=== PATIENT | male | born 1945 | race Caucasian/White ===

== ENCOUNTER → 2019-01-06 | Outpatient (CLI) | payer MEDICARE ==
[2019-01-06 13:10] LABS: African American GFR (CKD) >90 (>60 ml/min/1.73 sqM); Blood Urea Nitrogen 17 mg/dL (9-20)
--- NOTE | 2019-01-06 15:56 | CT ---
EXAMINATION TYPE: CT ChestAbdPelvis w con DATE OF EXAM: 01/06/2019 COMPARISON: None HISTORY: suspected mets, hx of melanoma. CT DLP: 1371.6 mGycm Automated exposure control for dose reduction was used. CONTRAST: CT scan of the chest, abdomen and pelvis is performed with Oral Contrast and with IV Contrast, patien t injected with 100 mL of Isovue 300. FINDINGS: LUNGS: There is a soft tissue nodule with smooth margins in the left upper lobe axial image 13 measur ing approximately 9 mm. Additional focus similar appearance is present on the image 16 left upper lob e. Nodularity present along the fissure on axial image #20 left upper lobe. Left lower lobe nodule al shilpa the fissure measures 1 cm axial image 26. Left lower lobe smooth margin nodule on axial image 47 present along the left hemidiaphragm. Along the costophrenic angle on axial image 54 nodule measures 1 cm. Lingular nodule image 38 measures 11 to 12 mm. 5 mm nodule on axial image 32 left lower lobe. 5 mm nodule left upper lobe axial image 25 medially. On the right, some nodularity is present along the posterior aspect of the major fissure which is sub centimeter in size. 4 mm nodule right upper lobe axial image 23. There is some pleural nodularity rig ht lateral chest x-ray image 21 and 22, 24 and 25, 32, 33. Subpleural nodularity on axial image #33 a nd 34, largest nodule measuring 11 to 12 mm on axial image 32. Subpleural nodule right lower lobe micki ge #39 is noted. On image #41 and 42 there is nodularity along the right hemidiaphragm and adjacent t o the thoracic spine measuring 14 mm 12 mm. MEDIASTINUM: There are no greater than 1 cm hilar or mediastinal lymph nodes. No pericardial effusi on is seen. Is a small hiatal hernia. AORTA: No significant abnormality is seen. OTHER: No additional significant abnormality is seen. LIVER/GB: No significant abnormality is appreciated. PANCREAS: No significant abnormality is seen. SPLEEN: No significant abnormality is seen. ADRENALS: No significant abnormality is seen. KIDNEYS: No significant abnormality is seen. REPRODUCTIVE ORGANS: Prostate gland shows calcification. BOWEL: Duodenal diverticulum present at the head of the pancreas level measuring 2.2 cm. Diverticula r change in the sigmoid colon. FREE AIR: No Free Air visible. ASCITES: None seen. RETROPERITONEAL ADENOPATHY: No retroperitoneal adenopathy is seen. LYMPH NODES: No greater than 1 cm abdominal or pelvic lymph nodes are appreciated. URINARY BLADDER: No significant abnormality is seen. PELVIC ADENOPATHY: None visualized. OSSEOUS STRUCTURES: Degenerative disc disease present in the visualized spine, there is facet arthro marin especially in the lumbar spine. Calcifications present along the origins of the hamstring muscl es possibly due to chronic tears. IMPRESSION: Multiple pulmonary nodules, pleural nodules suspicious for metastatic disease.
== END | disposition home or self-care (01) ==
LOC: RADCTMAIN 12:28
PROVIDERS: ATTEND Internal Medicine Hematology & Oncology
DX: R91.8 Other nonspecific abnormal finding of lung field (principal); C43.9 Malignant melanoma of skin, unspecified
CPT/HCPCS: 82565; 84520; 71260; 74177; 36415; Q9967

== ENCOUNTER 2019-04-29 16:44 | Inpatient (IN) | payer MEDICARE ==
--- NOTE | 2019-04-29 17:51 | ED ---
General Adult HPI - General Chief complaint: Recheck/Abnormal Lab/Rx Stated complaint: Mass on stomach Time Seen by Provider: 04/29/19 16:55 Source: patient, RN notes reviewed, old records reviewed Mode of arrival: ambulatory Limitations: no limitations - History of Present Illness Initial comments: This is a 74-year-old male who presents emergency Department stating that he had melanoma behind his eye which was removed a little while ago. Patient had gone to see his doctor an ultrasound was ordered they noticed a mass in the stomach and Dr. Ball called and wanted the patient to be further evaluated the emergency department and probably have admission follow-up with Dr. Melgar. Patient states he is not any difficulty breathing or chest pain currently but he states with exertion he does have difficulty breathing. Patient denies any abdominal pain currently patient is a nausea vomiting diarrhea. - Related Data Home Medications Medication Instructions Recorded Confirmed Aspirin [Adult Low Dose Aspirin EC] 81 mg PO DAILY 08/28/15 08/28/15 Multivitamins, Thera [Multivitamin] 1 tab PO DAILY 08/28/15 08/28/15 Allergies Allergy/AdvReac Type Severity Reaction Status Date / Time No Known Allergies Allergy Verified 04/29/19 16:51 Review of Systems ROS Statement: Those systems with pertinent positive or pertinent negative responses have been documented in the HPI. ROS Other: All systems not noted in ROS Statement are negative. Past Medical History Past Medical History: Osteoarthritis (OA) History of Any Multi-Drug Resistant Organisms: None Reported Past Surgical History: Joint Replacement, Orthopedic Surgery Additional Past Surgical History / Comment(s): TOTAL LEFT KNEE, LEFT ROTATOR CUFF, MAYR JO CARPAL TUNNER X2 EACH. Past Anesthesia/Blood Transfusion Reactions: No Reported Reaction Past Psychological History: No Psychological Hx Reported Smoking Status: Former smoker Past Alcohol Use History: Daily Past Drug Use History: None Reported - Past Family History Mother Family Medical History: No Reported History General Exam - General Exam Comments Initial Comments: GENERAL: Patient is well-developed and well-nourished. Patient is nontoxic and well- hydrated and is in no acute distress. ENT: Neck is soft and supple. No significant lymphadenopathy is noted. Oropharynx is clear. Moist mucous membranes. Neck has full range of motion without eliciting any pain. EYES: The sclera were anicteric and conjunctiva were pink and moist. Extra, motion of the right eye is normal.. Eyelids were unremarkable. PULMONARY: Unlabored respirations. Good breath sounds bilaterally. No audible rales rhonchi or wheezing was noted. CARDIOVASCULAR: There is a regular rate and rhythm without any murmurs gallops or rubs. Femoral pulses are equal bilaterally ABDOMEN: Soft and nontender with normal bowel sounds. SKIN: Skin is clear with no lesions or rashes and otherwise unremarkable. NEUROLOGIC: Patient is alert and oriented x3. Cranial nerves II through XII are grossly intact. Motor and sensory are also intact. Normal speech, volume and content. Symmetrical smile. MUSCULOSKELETAL: Normal extremities with adequate strength and full range of motion. No lower extremity swelling or edema. No calf tenderness. LYMPHATICS: No significant lymphadenopathy is noted PSYCHIATRIC: Normal psychiatric evaluation. Limitations: no limitations Course Vital Signs 04/29/19 16:51 Temperature 97.6 F Pulse Rate 88 Respiratory 18 Rate Blood Pressure 149/93 O2 Sat by Pulse 92 L Oximetry Medical Decision Making - Medical Decision Making CT of the chest abdomen pelvis shows probable metastatic disease. Patient also is a large pleural effusion on the right. Spoke with Dr. Ball he wanted the patient admitted the patient consult Dr. Melgar - Lab Data Result diagrams: 04/29/19 17:31 04/29/19 17:31 Lab Results 04/29/19 04/29/19 04/29/19 Range/Units 17:31 17:31 17:31 WBC 5.5 (3.8-10.6) k/uL RBC 4.65 (4.30-5.90) m/uL Hgb 14.3 (13.0-17.5) gm/dL Hct 42.4 (39.0-53.0) % MCV 91.1 (80.0-100.0) fL MCH 30.8 (25.0-35.0) pg MCHC 33.8 (31.0-37.0) g/dL RDW 13.2 (11.5-15.5) % Plt Count 272 (150-450) k/uL Neutrophils % 66 % Lymphocytes % 21 % Monocytes % 7 % Eosinophils % 3 % Basophils % 0 % Neutrophils # 3.7 (1.3-7.7) k/uL Lymphocytes # 1.2 (1.0-4.8) k/uL Monocytes # 0.4 (0-1.0) k/uL Eosinophils # 0.2 (0-0.7) k/uL Basophils # 0.0 (0-0.2) k/uL PT 10.3 (9.0-12.0) sec INR 1.0 (<1.2) APTT 24.4 (22.0-30.0) sec D-Dimer (<0.60) mg/L FEU Sodium 137 (137-145) mmol/L Potassium 4.1 (3.5-5.1) mmol/L Chloride 106 (98-107) mmol/L Carbon Dioxide 22 (22-30) mmol/L Anion Gap 9 mmol/L BUN 21 H (9-20) mg/dL Creatinine 0.58 L (0.66-1.25) mg/dL Est GFR (CKD-EPI)AfAm >90 (>60 ml/min/1.73 sqM) Est GFR (CKD-EPI)NonAf >90 (>60 ml/min/1.73 sqM) Glucose 125 H (74-99) mg/dL Calcium 9.2 (8.4-10.2) mg/dL Magnesium (1.6-2.3) mg/dL Total Bilirubin 0.8 (0.2-1.3) mg/dL AST 35 (17-59) U/L ALT 19 (4-49) U/L Alkaline Phosphatase 112 (38-126) U/L Total Protein 8.1 (6.3-8.2) g/dL Albumin 4.0 (3.5-5.0) g/dL 04/29/19 04/29/19 Range/Units 17:31 17:31 WBC (3.8-10.6) k/uL RBC (4.30-5.90) m/uL Hgb (13.0-17.5) gm/dL Hct (39.0-53.0) % MCV (80.0-100.0) fL MCH (25.0-35.0) pg MCHC (31.0-37.0) g/dL RDW (11.5-15.5) % Plt Count (150-450) k/uL Neutrophils % % Lymphocytes % % Monocytes % % Eosinophils % % Basophils % % Neutrophils # (1.3-7.7) k/uL Lymphocytes # (1.0-4.8) k/uL Monocytes # (0-1.0) k/uL Eosinophils # (0-0.7) k/uL Basophils # (0-0.2) k/uL PT (9.0-12.0) sec INR (<1.2) APTT (22.0-30.0) sec D-Dimer 2.11 H (<0.60) mg/L FEU Sodium (137-145) mmol/L Potassium (3.5-5.1) mmol/L Chloride (98-107) mmol/L Carbon Dioxide (22-30) mmol/L Anion Gap mmol/L BUN (9-20) mg/dL Creatinine (0.66-1.25) mg/dL Est GFR (CKD-EPI)AfAm (>60 ml/min/1.73 sqM) Est GFR (CKD-EPI)NonAf (>60 ml/min/1.73 sqM) Glucose (74-99) mg/dL Calcium (8.4-10.2) mg/dL Magnesium 2.1 (1.6-2.3) mg/dL Total Bilirubin (0.2-1.3) mg/dL AST (17-59) U/L ALT (4-49) U/L Alkaline Phosphatase (38-126) U/L Total Protein (6.3-8.2) g/dL Albumin (3.5-5.0) g/dL Disposition Clinical Impression: Metastatic melanoma Disposition: ADMITTED IP TO THIS HOSP Referrals: Soy Ball MD [Primary Care Provider] - 1-2 days Time of Disposition: 19:39
[2019-04-29 17:55] LABS: Basophils % (A) 0 %; Eosinophils # (A) 0.2 k/uL (0-0.7); Eosinophils % (A) 3 %; HCT 42.4 % (39.0-53.0); HGB 14.3 gm/dL (13.0-17.5); Lymphocytes # (A) 1.2 k/uL (1.0-4.8); Lymphocytes % (A) 21 %; MCH 30.8 pg (25.0-35.0); MCHC 33.8 g/dL (31.0-37.0); MCV 91.1 fL (80.0-100.0); Mean Platelet Volume 7.3; Monocytes # (A) 0.4 k/uL (0-1.0); Monocytes % (A) 7 %; Neutrophils # (A) 3.7 k/uL (1.3-7.7); Neutrophils % (A) 66 %; Platelet Count 272 k/uL (150-450); RBC 4.65 m/uL (4.30-5.90); RDW 13.2 % (11.5-15.5); WBC 5.5 k/uL (3.8-10.6)
[2019-04-29 18:01] LABS: ALT 19 U/L (4-49); AST 35 U/L (17-59); African American GFR (CKD) >90 (>60 ml/min/1.73 sqM); Alkaline Phosphatase 112 U/L (38-126); Anion Gap 9 mmol/L; Blood Urea Nitrogen 21 mg/dL (9-20); Calcium 9.2 mg/dL (8.4-10.2); Carbon Dioxide 22 mmol/L (22-30); Chloride 106 mmol/L (98-107); Glucose 125 mg/dL (74-99); Non-African American GFR(CKD) >90 (>60 ml/min/1.73 sqM); Potassium 4.1 mmol/L (3.5-5.1); Sodium 137 mmol/L (137-145); Total Bilirubin 0.8 mg/dL (0.2-1.3); Total Protein 8.1 g/dL (6.3-8.2)
[2019-04-29 18:03] LABS: Partial Thromboplastin Time 24.4 sec (22.0-30.0); Prothrombin Time 10.3 sec (9.0-12.0)
[2019-04-29] MEDS ORDERED: SODIUM CHLORIDE 0.9% 1,000 ML IV ONE (19:44)
--- NOTE | 2019-04-29 20:39 | CT ---
EXAMINATION TYPE: CT chest angio for PE DATE OF EXAM: 04/29/2019 COMPARISON: 01/06/2019 HISTORY: 74-year-old male Shortness of breath. TECHNIQUE: Contiguous axial scanning of the chest performed with IV Contrast, patient injected with 1 00ml mL of Isovue 370. Coronal/sagittal MIP reconstructions performed. CT DLP: 497.7 mGycm Automated exposure control for dose reduction was used. FINDINGS: Heart normal size with trace anterior pericardial effusion. No flattening of the interventricular sep britton or reflux of contrast into the hepatic veins. Aorta normal caliber with conventional arch was a branching anatomy. Satisfactory opacification of the pulmonary artery system without evidence for pulmonary embolus. There has been marked interval progression in disease with new extensive pleural nodularity right mid and lower lung with multiple pleural-based masses nearly forming a nodular rind. There is extensive conglomerate mass involving the right middle lobe with extensive new and enlarging bilateral pulmonary nodules, for example, inferior lingula measuring 2.6 cm versus 1.2 cm, previousl y, central left lower lobe at 2.3 cm, new, 3.0 cm peripheral left base residual 0.8 cm, previously. N umerous additional nodules are present. Mild emphysema. Mild septal lines. Moderate to large right pleural effusion is new. The medial mediastinal lymph nodes measuring up to 1.6 cm prevascular space and 1.7 cm AP window. On the right, there is right infrahilar encasement. Partial collapse of the right lower lobe. Most of the left lower lobe is collapsed or opacified with disease involvement. Visualized upper abdomen shows mild thickening of the left adrenal gland, similar to prior. Bones: [facility] within the mid and lower thoracic spine. Degenerative changes of both shoulders. IMPRESSION: 1. NO EVIDENCE FOR PULMONARY EMBOLUS. 2. EXTENSIVE INTERVAL METASTATIC DISEASE PROGRESSION WITH A MALIGNANT MODERATE TO LARGE RIGHT PLEURAL EFFUSION, DEVELOPMENT OF A NEOPLASTIC PLEURAL RIND RIGHT MID AND LOWER LUNG, NUMEROUS NEW AND ENLARG ING PULMONARY NODULES, EXTENSIVE NEOPLASTIC INVOLVEMENT THROUGHOUT THE RIGHT MIDDLE LOBE, AND NEW AP WINDOW AND PREVASCULAR SPACE LYMPHADENOPATHY. 3. THE RIGHT MIDDLE LOBE IS EITHER ENTIRELY INVOLVED WITH TUMOR OR OPACIFIED/ATELECTATIC. JUST OVER H DETENTION OF THE RIGHT LOWER LOBE IS COLLAPSED.
--- NOTE | 2019-04-29 22:26 | CT ---
EXAMINATION TYPE: CT abdomen pelvis w con DATE OF EXAM: 04/29/2019 HISTORY: Generalized abdominal pain. TECHNIQUE: Helical acquisition of images was performed from the lung bases through the pelvis. CT DL P: 1303.6 mGycm. Automated exposure control for dose reduction was used. CONTRAST: Performed without Oral Contrast and with IV Contrast, patient injected with 100ml mL of Iso julián 370. COMPARISON: 01/06/2019 FINDINGS: LUNG BASES: Please refer to CT chest CTA report from earlier today. Interval increase in the size and number of the lower lobe bilateral pulmonary nodules and pleural-ba sed disease. An example of the pulmonary nodules is the dominant left lower lobe lesion now measuring 3.1 x 2.2 cm, previously it measured 1.8 x 1.4 cm in axial cross section. There is a large volume ri ght pleural effusion with innumerable soft tissue density pleural metastatic neoplastic deposits. Bot h the fluid and the nodules are new since the prior study. The nodules predominantly measured 2-3 cm mean diameter. LIVER/GB: No significant abnormality is appreciated. PANCREAS: No significant abnormality is seen. SPLEEN: No significant abnormality is seen. ADRENALS: No significant abnormality is seen. KIDNEYS: No significant abnormality is seen. RETROPERITONEAL ADENOPATHY: None visualized REPRODUCTIVE ORGANS: No significant abnormality is seen URINARY BLADDER: No significant abnormality is seen. PELVIC ADENOPATHY: None visualized. OSSEOUS STRUCTURES: No significant abnormality is seen. BOWEL: No significant abnormality is seen. OTHER: No acute vascular findings. IMPRESSION: NO ABDOMINOPELVIC ACUTE PROCESS OR NEOPLASTIC DISEASE.
--- NOTE | 2019-04-30 09:29 | US ---
EXAMINATION TYPE: US chest DATE OF EXAM: 04/30/2019 COMPARISON: NONE CLINICAL HISTORY: Markings for thoracentesis by pulmonary staff. Abn CT showed right sided pleural ef fusion TECHNIQUE: Targeted ultrasound of the posterior lower right EXAM MEASUREMENTS: Right Pleural Effusion pocket size: 18.8cm Right skin surface to fluid distance: 5.9cm Right side marked for possible thoracentesis outside the dept. Pulmonologists are able to review the images in the patient?s EMR. IMPRESSIONS: Right pleural effusion
[2019-04-30] MEDS ORDERED: ACETAMINOPHEN TAB 325 MG TAB PO PRN (10:16)
--- NOTE | 2019-04-30 12:33 | P.CNPUL ---
History of Present Illness Consult date: 04/30/19 Requesting physician: Soy Ball Reason for consult: dyspnea, abnormal CXR/CT Chief complaint: Shortness of breath for approximately one month History of present illness: This is a very pleasant 74 year old gentleman who follows with Dr. Ball as his primary care provider. He has a history of osteoarthritis with previous orthopedic surgeries, alcohol use with 3 beers per day, remote history of chronic tobacco dependence of approximate 40 years however quit in 1992. The patient does have a history of melanoma of the left eye requiring enucleation and placement of prosthetic. This was in August 2018 and no other treatment was indicated. He had been following with Dr. Melgar for surveillance. He had a computed tomography scan of the chest abdomen and pelvis in December 2018 which did reveal multiple bilateral lung nodules suspicious for metastasis. He had not been seen by a editorial assistant in the past. No oxygen. No inhalers in the outpatient setting. Approximately a month ago he developed shortness of breath mainly on exertion. He was undergoing outpatient workup by his PCP and yesterday's computed tomography scan of the abdomen revealed no abdominal pelvic acute process or neoplastic disease however CT scan of the chest revealed no evidence of pulmonary embolus however there was extensive interval metastatic disease progression with a malignant moderate to large right pleural effusion, development of a neoplastic pleural rind right mid and lower lung, numerous new and enlarging pulmonary nodules, extensive neoplastic involvement involving the right middle lobe, and new AP window and prevascular space lymphadenopathy. The right middle lobe is either entirely involved with tumor or opacified atelectasis. Just over half the right lower lobe is collapsed. Based on these findings the patient was called at home and told to report to the emergency room. He is seen today in consultation on the regular medical floor. He is maintaining good O2 saturations in the low 90s on room air. He's been afebrile. Hemodynamically stable. He denies any productive cough. No hemoptysis. White count 5.5. Hemoglobin 14.3. Creatinine 0.58. Ultrasound of the chest reveals an 18.8 cm pocket on the right. Review of Systems REVIEW OF SYSTEMS: CONSTITUTIONAL: Denies any recent significant weight loss or weight gain. EYES: Denies change in vision. EARS, NOSE, MOUTH, THROAT: Denies headaches, denies sore throat. CARDIOVASCULAR: Denies chest pain, palpitations or syncopal episodes. RESPIRATORY: Shortness of breath mainly with exertion. No cough or congestion. No hemoptysis.. GASTROINTESTINAL: Denies change in appetite, denies abdominal pain GENITOURINARY: Denies hematuria, denies infections. MUSKULOSKELETAL: Denies pain, denies swelling. INTEGUMENTARY: Denies rash, denies eczema. NEUROLOGICAL: Denies recent memory loss, no recent seizure activity. PSYCHIATRIC: Denies anxiety, denies depression. HEMATOLOGIC/LYMPHATIC: Denies anemia, denies enlarged lymph nodes. Past Medical History Past Medical History: Osteoarthritis (OA) Additional Past Medical History / Comment(s): Left eye cancer, melanoma, status post enucleation with prosthesis History of Any Multi-Drug Resistant Organisms: None Reported Past Surgical History: Joint Replacement, Orthopedic Surgery Additional Past Surgical History / Comment(s): TOTAL LEFT KNEE, LEFT ROTATOR CUFF, MARY JO CARPAL TUNNEl X2 EACH, removed left eye 08/2018 artifical eye, abdominal hernia repair Past Anesthesia/Blood Transfusion Reactions: No Reported Reaction Past Psychological History: No Psychological Hx Reported Smoking Status: Former smoker Past Alcohol Use History: Daily Additional Past Alcohol Use History / Comment(s): DRINKS 3 BOTTLES OF BEER DAILY. QUIT SMOKING 25 YEARS AGO. SMOKED LESS THAN 1 PPD FOR 30 YEARS OR MORE. Past Drug Use History: None Reported - Past Family History Mother Family Medical History: No Reported History (Patient denies any significant family history.) Medications and Allergies Home Medications Medication Instructions Recorded Confirmed Type Aspirin [Adult Low Dose Aspirin EC] 81 mg PO DAILY 08/28/15 04/29/19 History Multivitamins, Thera [Multivitamin] 1 tab PO DAILY 08/28/15 04/29/19 History Omeprazole 40 mg PO DAILY 04/29/19 04/29/19 History Ondansetron [Zofran] 4 mg PO TID PRN 04/29/19 04/29/19 History Allergies Allergy/AdvReac Type Severity Reaction Status Date / Time No Known Allergies Allergy Verified 04/29/19 20:29 Physical Exam Vitals: Vital Signs Temp Pulse Pulse Resp BP BP Pulse Ox 04/30/19 04:07 98.2 F 93 18 129/80 92 L 04/30/19 00:00 80 16 04/29/19 23:00 97.9 F 88 16 141/84 93 L 02/06/20 21:04 77 18 04/29/19 20:21 89 16 131/78 92 L 04/29/19 16:51 97.6 F 88 18 149/93 92 L Intake and Output 04/29/19 04/30/19 04/30/19 22:59 06:59 14:59 Intake Total 75 575 Balance 75 575 Intake: Intake, IV Titration 75 575 Amount Sodium Chloride 0.9% 1, 75 575 000 ml @ 75 mls/hr IV . [id number] ONE Rx#:[id number] Other: Voiding Method Toilet Toilet Toilet # Voids 4 Weight 92.986 kg GENERAL EXAM: Alert, active, pleasant 74-year-old gentleman, on room air comfortable in no apparent distress. HEAD: Normocephalic. EYES: History of left eye enucleation with prosthesis NOSE: Clear with pink turbinates. THROAT: No erythema or exudates. NECK: No masses, no JVD. CHEST: No chest wall deformity. LUNGS: Diminished in the right mid and lower lung. CVS: S1 and S2 normal with no audible murmur, regular rhythm. ABDOMEN: No hepatosplenomegaly, normal bowel sounds, no guarding or rigidity. SPINE: No scoliosis or deformity SKIN: No rashes CENTRAL NERVOUS SYSTEM: No focal deficits, tone is normal in all 4 extremities. EXTREMITIES: There is no peripheral edema. No clubbing, no cyanosis. Periphe ral pulses are intact. Results - Laboratory Findings CBC and BMP: 04/29/19 17:31 04/29/19 17:31 PT/INR, D-dimer PT 10.3 sec (9.0-12.0) 04/29/19 17:31 INR 1.0 (<1.2) 04/29/19 17:31 D-Dimer 2.11 mg/L FEU (<0.60) H 04/29/19 17:31 Abnormal lab findings: Abnormal Labs 04/29/19 04/29/19 17:31 17:31 D-Dimer 2.11 H BUN 21 H Creatinine 0.58 L Glucose 125 H - Diagnostic Findings Chest x-ray: image reviewed CT scan - chest: image reviewed Assessment and Plan Assessment: 1 Dyspnea on exertion secondary to extensive interval metastatic disease progression compared to December 2018 with a malignant moderate to large right pleural effusion, development of a neoplastic pleural rind right mid and lower lung, numerous new and enlarging pulmonary nodules, extensive neoplastic involvement throughout the right middle lobe, and new AP window and prevascular space lymphadenopathy. The right middle lobe is either entirely involved with tumor or opacified atelectasis. Just over half the right lower lobe is collapsed. 2 Melanoma of the left eye status post enucleation in August 2018 at the [facility] in [place], no chemotherapy or radiation 3 Multiple bilateral pulmonary nodules noted in December 2018, the largest of which measuring 1 cm 4 Chronic tobacco dependence of nearly 50 years however quit in 1992 5 Osteoarthritis with multiple orthopedic surgery 6 Alcohol use, 3 beers daily Plan: The patient was seen and evaluated by Dr. Green. Previous CAT scan of the chest and recent CAT scan of the chest from yesterday were compared. There is extensive interval metastatic disease progression as noted above with a large right pleural effusion. He will undergo thoracentesis initially with fluid to be sent to pathology. May require bronchoscopy to evaluate the tumor involvement of the right mid and lower lobes. The patient is currently stable and on room air. We will continue to follow and make further recommendations based on his clinical status. I, the cosigning physician, performed a history & physical examination of the patient. Lungs sounds diminished in the right mid and lower lobes. Maintaining good O2 saturations in the 90s on room air. I discussed the assessment and plan of care with my nurse practitioner, Becky Hwang. I attest to the above consultation as dictated by her. Time with Patient: Greater than 30
--- NOTE | 2019-04-30 14:54 | P.HPIM ---
History of Present Illness H&P Date: 04/30/19 Chief Complaint: Abnormal finding on ultrasound This is a 74-year-old male patient of Dr. 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 Patient had ultrasound done that revealed a mass in the abdomen and patient was instructed to come into the hospital for further evaluation. Dr. Melgar is his oncologist he last saw him 2-3 weeks ago. Patient does complain of some shortness of breath with activity. He complains of headache. In December 2018, patient had outpatient CAT scan ordered by Dr. Melgar that revealed multiple pulmonary nodules, pleural nodules suspicious for metastatic disease. Patient came into the [facility] emergency center for evaluation. CBC unremarkable, electrolytes and liver function test normal, BUN 21 creatinine 0.58. Patient was afebrile, hemodynamically stable, pulse ox 92% on room air. CTA of the chest was negative for pulmonary embolism. There was extensive interval metastatic disease progression with malignant moderate to large right pleural effusion, development of neoplastic pleural right mid and lower lung, numerous new and enlarging pulmonary nodules, extensive neoplastic involvement throughout the right middle lobe and new AP window and prevascular space lymphadenopathy. Right middle lobe is either entirely involved with tumor or opacified. CT of the abdomen and pelvis with contrast revealed no abdominalopelvic neoplastic disease. Ultrasound of the chest was marked for right-sided 18.8 cm pleural effusion. Patient admitted to the [facility] floor and consult requested with Dr. Green and oncology. Review of Systems Constitutional: Reports fatigue, Denies chills, Denies fever, Denies malaise, Denies poor appetite Eyes: denies blurred vision, denies pain Ears, nose, mouth and throat: Denies dysphagia, Denies headache, Denies nasal congestion, Denies nasal discharge, Denies sore throat, Denies vertigo Cardiovascular: Reports decreased exercise tolerance, Reports dyspnea on exertion, Denies chest pain, Denies edema, Denies leg edema, Denies lightheadedness, Denies shortness of breath, Denies syncope Respiratory: Denies cough, Denies cough with sputum, Denies dyspnea, Denies excessive sputum, Denies hemoptysis, Denies home oxygen, Denies respiratory infections, Denies wheezing Gastrointestinal: Denies abdominal pain, Denies diarrhea, Denies nausea, Denies vomiting Genitourinary: Denies dysuria, Denies urinary retention Musculoskeletal: Reports muscle weakness, Denies myalgias Integumentary: Denies pruritus, Denies rash, Denies wounds Neurological: Denies change in mentation, Denies change in speech, Denies numbness, Denies weakness Psychiatric: Denies anxiety, Denies depression Endocrine: Denies fatigue, Denies weight change Past Medical History Past Medical History: Osteoarthritis (OA) Additional Past Medical History / Comment(s): Melanoma left eyes status post prosthesis at [facility] History of Any Multi-Drug Resistant Organisms: None Reported Past Surgical History: Joint Replacement, Orthopedic Surgery Additional Past Surgical History / Comment(s): TOTAL LEFT KNEE, LEFT ROTATOR CUFF, MARY JO CARPAL TUNNEl X2 EACH, prosthesis left eye 08/2018, abdominal hernia repair Past Anesthesia/Blood Transfusion Reactions: No Reported Reaction Past Psychological History: No Psychological Hx Reported Smoking Status: Former smoker Past Alcohol Use History: Daily Additional Past Alcohol Use History / Comment(s): DRINKS 3 BOTTLES OF BEER DAILY. QUIT SMOKING 25 YEARS AGO. SMOKED LESS THAN 1 PPD FOR 30 YEARS OR MORE. Past Drug Use History: None Reported - Past Family History Mother Family Medical History: No Reported History Additional Family Medical History / Comment(s): Mother at age 73 with history of diabetes. Father Additional Family Medical History / Comment(s): Father at age 65 from a myocardial infarction. Brother(s) Additional Family Medical History / Comment(s): Patient has 4 brothers when his past from a myocardial infarction at age 57, one has from kidney disease, one from coronary artery disease. One brother is alive with history of diabetes. Sister(s) Additional Family Medical History / Comment(s): Patient does not have any sisters. Son(s) Additional Family Medical History / Comment(s): Patient has 2 sons and one has from complications following bariatric surgery with PE, one son is alive with history of high cholesterol. Patient is one daughter with diabetes. Medications and Allergies Home Medications Medication Instructions Recorded Confirmed Type Aspirin [Adult Low Dose Aspirin EC] 81 mg PO DAILY 08/28/15 04/29/19 History Multivitamins, Thera [Multivitamin] 1 tab PO DAILY 08/28/15 04/29/19 History Omeprazole 40 mg PO DAILY 04/29/19 04/29/19 History Ondansetron [Zofran] 4 mg PO TID PRN 04/29/19 04/29/19 History Allergies Allergy/AdvReac Type Severity Reaction Status Date / Time No Known Allergies Allergy Verified 04/29/19 20:29 Physical Exam Vitals: Vital Signs Temp Pulse Pulse Resp BP BP Pulse Ox 04/30/19 04:07 98.2 F 93 18 129/80 92 L 04/30/19 00:00 80 16 04/29/19 23:00 97.9 F 88 16 141/84 93 L 04/29/19 21:04 77 18 04/29/19 20:21 89 16 131/78 92 L 04/29/19 16:51 97.6 F 88 18 149/93 92 L Intake and Output 04/29/19 04/30/19 04/30/19 22:59 06:59 14:59 Intake Total 75 575 Balance 75 575 Intake: Intake, IV Titration 75 575 Amount Sodium Chloride 0.9% 1, 75 575 000 ml @ 75 mls/hr IV . [id number] ONE Rx#:[id number] Other: Voiding Method Toilet Toilet # Voids 4 Weight 92.986 kg Gen: This is a 74-year-old male. Patient sitting on the edge of the bed and appears to be comfortable. No respiratory distress is noted. HEENT: Head is atraumatic, normocephalic. Pupil round. Prosthesis left eye. Sclerae is anicteric. NECK: Supple. No JVD. No lymphadenopathy. No thyromegaly. LUNGS: Ms. Almanza on the right lower half. No wheezes or rhonchi. No intercostal retractions. HEART: Regular rate and rhythm. No murmur. ABDOMEN: Soft. Bowel sounds are present. No masses. No tenderness. EXTREMITIES: No pedal edema. No calf tenderness. Dorsalis pedis palpable bila terally. NEUROLOGICAL: Patient is awake, alert and oriented x3. Cranial nerves 2 through 12 are grossly intact. Results CBC & Chem 7: 04/29/19 17:31 04/29/19 17:31 Labs: Abnormal Lab Results - Last 24 Hours (Table) 04/29/19 04/29/19 Range/Units 17:31 17:31 D-Dimer 2.11 H (<0.60) mg/L FEU BUN 21 H (9-20) mg/dL Creatinine 0.58 L (0.66-1.25) mg/dL Glucose 125 H (74-99) mg/dL Thrombosis Risk Factor Assmnt - DVT/VTE Prophylaxis DVT/VTE Prophylaxis: Pharmacologic Prophylaxis ordered - Choose All That Apply Any of the Below Risk Factors Present?: Yes Other Risk Factors: Yes Each Risk Factor Represents 2 Points: Age 61-74 years Other congenital or acquired thrombophilia - If yes, enter type in comment: No Thrombosis Risk Factor Assessment Total Risk Factor Score: 2 Thrombosis Risk Factor Assessment Level: Low Risk Assessment and Plan Plan: 1. Dyspnea on exertion secondary to a large right pleural effusion, with e xtensive interval metastatic disease progression, patient admitted to the MedSurg floor, consult with pulmonary medicine, patient is status post ultrasound for thoracentesis. Consult with oncology. 2. 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 3. Osteoarthritis, generalized, stable. 4. Remote history of tobacco use and quit in 1992. 5. Daily alcohol use. 6. GERD and GI prophylaxis. Protonix. 7. DVT prophylaxis. Heparin subcu. Patient will be admitted to the hospital for a minimum of 2 night stay. Discharge plan: Most likely return home. Impression and plan of care have been directed as dictated by the signing physician. Renae Weber nurse practitioner acting as scribe for signing physician.
--- NOTE | 2019-04-30 17:55 | P.CONS ---
History of Present Illness - Reason for Consult Consult date: 04/30/19 History of melanoma, likely metastatic progression - History of Present Illness The pt is a 74 yr old WM, followed by Dr Melgar in the office, 1st seen in consult in 01/09. 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 He presented with gradual decreased vision field X 4-6 months before melanoma was identified clinically. He is doing well post enucleation, remains fully active. He stated being healthy otherwise. He smoked 1 PPD X 30 years, quit smoking 25 years ago. He consumes 3-4 beers/day. The patient denied family history of Melanoma. He had a staging CT CAP in 01/09 showing b/l lung nodules around 1 cm or less, with subpleural nodularity. These were not felt to be definitive, especially as the pt was asymptomatic, and f/u CT was set up for 07/11. Last OV (04/06/19): Dawn Ok, C/O mild fatigue and chronic dyspnea The patient had noticed increasing shortness of breath over the last 2 weeks or so and a slowly progressive manner. He had an evaluation with his PCP with an ultrasound which apparently showed a mass in the stomach. He was therefore sent in to the hospital. He did admits to increased shortness of breath and chest tightness especially on the right side with possible pleuritic characteristics. Therefore he had a CTA done, which was negative for a PE. However it did show marked interval progression with increasing subpleural nodularity in the right middle and lower zones forming essentially a rind, with a new, at least moderate pleural effusion. In addition there was increased size in confluence of nodules in the right middle to lower lung. Additional increase in size and number of nodules was noted. The patient was therefore admitted for further evaluation and recommendations. He denied any fever/chills/nausea/vomiting. He has lost about 8-9 pounds over the last couple of months. Review of Systems Constitutional: Reports weakness, Reports weight loss Eyes: denies blurred vision, denies pain Ears: deny: decreased hearing, ear discharge, earache, tinnitus Ears, nose, mouth and throat: Denies headache, Denies sore throat Cardiovascular: Reports shortness of breath Respiratory: Reports dyspnea Gastrointestinal: Denies abdominal pain, Denies diarrhea, Denies nausea, Denies vomiting Genitourinary: Reports as per HPI Musculoskeletal: Reports muscle weakness Integumentary: Denies pruritus, Denies rash Neurological: Reports weakness, Denies numbness Psychiatric: Denies anxiety, Denies depression Endocrine: Reports fatigue, Reports weight change Hematologic/Lymphatic: Reports as per HPI Past Medical History Past Medical History: Osteoarthritis (OA) Additional Past Medical History / Comment(s): Melanoma left eyes status post prosthesis at [facility] History of Any Multi-Drug Resistant Organisms: None Reported Past Surgical History: Joint Replacement, Orthopedic Surgery Additional Past Surgical History / Comment(s): TOTAL LEFT KNEE, LEFT ROTATOR CUFF, MARY JO CARPAL TUNNEl X2 EACH, prosthesis left eye 08/2018, abdominal hernia repair Past Anesthesia/Blood Transfusion Reactions: No Reported Reaction Past Psychological History: No Psychological Hx Reported Smoking Status: Former smoker Past Alcohol Use History: Daily Additional Past Alcohol Use History / Comment(s): DRINKS 3 BOTTLES OF BEER DAILY. QUIT SMOKING 25 YEARS AGO. SMOKED LESS THAN 1 PPD FOR 30 YEARS OR MORE. Past Drug Use History: None Reported - Past Family History Mother Family Medical History: No Reported History Additional Family Medical History / Comment(s): Mother at age 73 with history of diabetes. Father Additional Family Medical History / Comment(s): Father at age 65 from a myocardial infarction. Brother(s) Additional Family Medical History / Comment(s): Patient has 4 brothers when his past from a myocardial infarction at age 55, one has from kidney disease, one from coronary artery disease. One brother is alive with history of diabetes. Sister(s) Additional Family Medical History / Comment(s): Patient does not have any sisters. Son(s) Additional Family Medical History / Comment(s): Patient has 2 sons and one has from complications following bariatric surgery with PE, one son is alive with history of high cholesterol. Patient is one daughter with diabetes. Medications and Allergies Home Medications Medication Instructions Recorded Confirmed Type Aspirin [Adult Low Dose Aspirin EC] 81 mg PO DAILY 08/28/15 04/29/19 History Multivitamins, Thera [Multivitamin] 1 tab PO DAILY 08/28/15 04/29/19 History Omeprazole 40 mg PO DAILY 04/29/19 04/29/19 History Ondansetron [Zofran] 4 mg PO TID PRN 04/29/19 04/29/19 History Allergies Allergy/AdvReac Type Severity Reaction Status Date / Time No Known Allergies Allergy Verified 04/29/19 20:29 Physical Exam Vitals: Vital Signs Temp Pulse Pulse Resp BP BP Pulse Ox 04/30/19 12:10 98.3 F 77 20 117/75 92 L 04/30/19 04:07 98.2 F 93 18 129/80 92 L 04/30/19 00:00 80 16 04/29/19 23:00 97.9 F 88 16 141/84 93 L 04/29/19 21:04 77 18 04/29/19 20:21 89 16 131/78 92 L 04/29/19 16:51 97.6 F 88 18 149/93 92 L Intake and Output 04/30/19 04/30/19 04/30/19 06:59 14:59 22:59 Intake Total 575 Balance 575 Intake: Intake, IV Titration 575 Amount Sodium Chloride 0.9% 1, 575 000 ml @ 75 mls/hr IV . [id number] ONE Rx#:[id number] Other: Voiding Method Toilet Toilet # Voids 4 2 - Constitutional General appearance: no acute distress - EENT Eyes: EOMI, PERRLA ENT: hearing grossly normal, normal oropharynx - Neck Neck: no lymphadenopathy - Respiratory Respiratory: right: diminished (Lower half to one thirds on the right) - Cardiovascular Rhythm: regular Heart sounds: normal: S1, S2 - Gastrointestinal General gastrointestinal: normal bowel sounds, soft - Integumentary Integumentary: normal - Neurologic Neurologic: CNII-XII intact - Musculoskeletal Musculoskeletal: generalized weakness, strength equal bilaterally - Psychiatric Psychiatric: A&O x's 3, appropriate affect Results CBC & Chem 7: 04/29/19 17:31 04/29/19 17:31 Labs: Abnormal Lab Results - Last 24 Hours (Table) 04/29/19 04/29/19 Range/Units 17:31 17:31 D-Dimer 2.11 H (<0.60) mg/L FEU BUN 21 H (9-20) mg/dL Creatinine 0.58 L (0.66-1.25) mg/dL Glucose 125 H (74-99) mg/dL Comments: Chest ultrasound report reviewed CT scan - abdomen: report reviewed CT scan - chest: report reviewed CT scan - pelvis: report reviewed Assessment and Plan (1) Pleural effusion Current Visit: Yes Status: Acute Code(s): J90 - PLEURAL EFFUSION, NOT ELSEWH ERE CLASSIFIED SNOMED Code(s): 75910146 (2) Lung nodules Current Visit: Yes Status: Acute Code(s): R91.8 - OTHER NONSPECIFIC ABNORMAL FINDING OF LUNG FIELD SNOMED Code(s): 077837321 Plan: #1/2 the patient had known lung nodules and pleural nodularity on CAT scan done in 01/09. Review of the office notes indicates that these were apparently felt to be overall nonspecific based on the size and lack of symptoms. The patient has developed slowly progressive respiratory symptoms, with marked progression on imaging as noted above. This is highly suspicious for metastatic progression of melanoma. However metastatic disease from other sites is also not ruled out though less likely - The patient should therefore proceed with a tissue diagnosis. That was a prior plan in case of progression. At this time an appropriate target would be the pleural fluid. The patient is set up for thoracentesis. Recommend that the fluid be sent for cytology, with appropriate biomarkers if positive. If the patient develops rapid recurrence of fluid, then we will need to consider a Pleurx catheter placement #3. - History as described. Current presentation is most suspicious for metastatic progression off melanoma. We will need to. Tissue diagnosis, as described above. Once this is confirmed, appropriate biomarkers testing will be ordered. Patient will follow-up with Dr. Melgar on discharge to discuss treatment option based on the final pathology. CT of the abdomen and pelvis does not show any obvious disease. Bone scan will be ordered for additional staging, as well as brain MRI, if malignancy is confirmed
--- NOTE | 2019-04-30 17:56 | XR ---
EXAMINATION TYPE: XR chest 1V portable DATE OF EXAM: 04/30/2019 COMPARISON: Chest x-ray 02/21/2010 HISTORY: Thoracentesis TECHNIQUE: Single view FINDINGS: Portable exam after thoracentesis shows significant decrease in the right pleural effusion compared to CT scan yesterday. There are nodular pulmonary densities in both lungs measuring up to 2 cm consistent with metastatic disease. There is pleural irregular thickening right lateral chest wall . There is no pneumothorax. IMPRESSION: Pleural and pulmonary masses. Decreased right pleural effusion compared to yesterday. No pneumothorax.
[2019-04-30 19:28] LABS: Appearance,BF Bloody; Nucleated Cells, Body Fluid 2000 /uL; RBC, Body Fluid 134500 /uL
[2019-04-30] MEDS: HEPARIN SODIUM,PORCINE 5,000 UNIT/ML 1 ML VIAL SQ SCH (19:30)
[2019-04-30 20:07] LABS: Mononuclear WBC,Body Fluid 91 %; Polynuclear WBC,Body Fluid 9 %; Total Cells Counted,Body Fluid 100
--- NOTE | 2019-04-30 23:10 | PCN ---
PROCEDURE NOTE OPERATIVE REPORT: Right-sided thoracentesis. PREOPERATIVE DIAGNOSIS: Pleural effusion. POSTOPERATIVE DIAGNOSIS: Pleural effusion. ANESTHESIA: Used 3 mL of 1% lidocaine. PROCEDURE: The patient was placed in a sitting upright position, the area below the right scapula which was earlier localized by ultrasound was prepared in a sterile fashion and drapes were applied. The area was locally anesthetized with lidocaine. Then, a 26-gauge needle inserted at the same site, advanced into the pleural space. The fluid was localized with a needle. Then a small tiny incision was made, and a standard thoracentesis catheter and needle used, advanced into the pleural space until the fluid was obtained. Then, the catheter was advanced over the needle and the needle was pulled out of the pleural space. Freely flowing fluid was removed from the right pleural space. A total of 2000 mL of serosanguineous fluid was removed from the right pleural space. The fluid was sent for different diagnostic studies, chest x-ray postoperatively showed no evidence of any complications, and there was complete clearance of his right-sided pleural effusion. MMODL / IJN: [id number] /
[2019-05-01] MEDS ORDERED: PANTOPRAZOLE 40 MG TABLET PO SCH (07:30)
[2019-05-01] MEDS ORDERED: MULTIVITAMINS, THERA 1 EACH TAB PO SCH (09:00)
[2019-05-01] MEDS: HEPARIN SODIUM,PORCINE 5,000 UNIT/ML 1 ML VIAL SQ SCH (10:12)
[2019-05-01 11:37] LABS: HCT 43.6 % (39.0-53.0); HGB 14.3 gm/dL (13.0-17.5); MCH 30.3 pg (25.0-35.0); MCHC 32.8 g/dL (31.0-37.0); MCV 92.4 fL (80.0-100.0); Mean Platelet Volume 7.2; Platelet Count 257 k/uL (150-450); RBC 4.72 m/uL (4.30-5.90); RDW 13.2 % (11.5-15.5); WBC 5.5 k/uL (3.8-10.6)
[2019-05-01 11:43] VITALS: BP 121/71; PULSE 81; RESP 17; TEMP 97.8
--- NOTE | 2019-05-01 12:07 | P.PN ---
Subjective Progress Note Date: 05/01/19 This is a 74-year-old male patient of Dr. 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 Patient had ultrasound done that revealed a mass in the abdomen and patient was instructed to come into the hospital for further evaluation. Dr. Melgar is his oncologist he last saw him 2-3 weeks ago. Patient does complain of some shortness of breath with activity. He complains of headache. In December 2018, patient had outpatient CAT scan ordered by Dr. Melgar that revealed multiple pulmonary nodules, pleural nodules suspicious for metastatic disease. Patient came into the [facility] emergency center for evaluation. CBC unremarkable, electrolytes and liver function test normal, BUN 21 creatinine 0.58. Patient was afebrile, hemodynamically stable, pulse ox 92% on room air. CTA of the chest was negative for pulmonary embolism. There was extensive interval metastatic disease progression with malignant moderate to large right pleural effusion, development of neoplastic pleural right mid and lower lung, numerous new and enlarging pulmonary nodules, extensive neoplastic involvement throughout the right middle lobe and new AP window and prevascular space lymphadenopathy. Right middle lobe is either entirely involved with tumor or opacified. CT of the abdomen and pelvis with contrast revealed no abdominalopelvic neoplastic disease. Ultrasound of the chest was marked for right-sided 18.8 cm pleural effusion. Patient admitted to the [facility] floor and consult requested with Dr. Green and oncology. 05/01: Patient underwent thoracentesis yesterday with Dr. Green with removal of 2 L of IV fluids. Pathology is pending. Patient has been hemodynamically stable, no fevers. Patient has been cleared for discharge by Dr. Green. Patient will be discharged home today in stable condition. Discharge diagnoses: 1. Dyspnea on exertion secondary to a large right pleural effusion, with extensive interval metastatic disease progression 2. 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 3. Osteoarthritis, generalized, stable. 4. Remote history of tobacco use and quit in 1992. 5. Daily alcohol use. 6. GERD Discharge plan: home. Impression and plan of care have been directed as dictated by the signing physician. Renae Weber nurse practitioner acting as scribe for signing physician. Objective - Vital Signs Vital signs: Vital Signs Temp 97.8 F 05/01/19 11:42 Pulse 81 05/01/19 11:42 Resp 17 05/01/19 11:42 BP 121/71 05/01/19 11:42 Pulse Ox 94 L 05/01/19 11:42 Intake & Output 04/30/19 05/01/19 05/01/19 18:59 06:59 18:59 Other: Voiding Method Toilet Toilet # Voids 2 2 - Labs CBC & Chem 7: 05/01/19 11:09 04/29/19 17:31 Labs: Abnormal Lab Results - Last 24 Hours (Table) 05/01/19 Range/Units 11:09 Lactate Dehydrogenase 653 H (313-618) U/L Microbiology - Last 24 Hours (Table) 04/30/19 17:20 Gram Stain - Preliminary Pleural Fluid Body Fluid Culture - Preliminary 04/30/19 17:20 Fungal Culture - Preliminary Pleural Fluid
--- NOTE | 2019-05-01 13:42 | P.DS ---
Providers Date of admission: 05/01/19 09:16 Expected date of discharge: 05/01/19 Attending physician: Soy Ball Consults: 04/29/19 19:44 Consult Physician Urgent Consulting Provider: Bernard Melgar Consult Reason/Comments: Metastatic melanoma Do you want consulting provider notified?: Yes 04/29/19 20:48 Consult Physician Urgent Consulting Provider: Nicole Green Consult Reason/Comments: Metastatic lung cancer Do you want consulting provider notified?: Yes Primary care physician: Soy Ball [facility] Course: This is a 74-year-old male patient of Dr. 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 Patient had ultrasound done that revealed a mass in the abdomen and patient was instructed to come into the hospital for further evaluation. Dr. Melgar is his oncologist he last saw him 2-3 weeks ago. Patient does complain of some shortness of breath with activity. He complains of headache. In December 2018, patient had outpatient CAT scan ordered by Dr. Melgar that revealed multiple pulmonary nodules, pleural nodules suspicious for metastatic disease. Patient came into the [facility] emergency center for evaluation. CBC unremarkable, electrolytes and liver function test normal, BUN 21 creatinine 0.58. Patient was afebrile, hemodynamically stable, pulse ox 92% on room air. CTA of the chest was negative for pulmonary embolism. There was extensive interval metastatic disease progression with malignant moderate to large right pleural effusion, development of neoplastic pleural right mid and lower lung, numerous new and enlarging pulmonary nodules, extensive neoplastic involvement throughout the right middle lobe and new AP window and prevascular space lymphadenopathy. Right middle lobe is either entirely involved with tumor or opacified. CT of the abdomen and pelvis with contrast revealed no abdominalopelvic neoplastic disease. Ultrasound of the chest was marked for right-sided 18.8 cm pleural effusion. Patient admitted to the [facility] floor and consult requested with Dr. Green and oncology. 05/01: Patient underwent thoracentesis yesterday with Dr. Green with removal of 2 L of IV fluids. Pathology is pending. Patient has been hemodynamically stable, no fevers. Patient has been cleared for discharge by Dr. Green. Patient will be discharged home today in stable condition. Discharge diagnoses: 1. Dyspnea on exertion secondary to a large right pleural effusion, with extensive interval metastatic disease progression 2. 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 3. Osteoarthritis, generalized, stable. 4. Remote history of tobacco use and quit in 1992. 5. Daily alcohol use. 6. GERD Discharge plan: home. Impression and plan of care have been directed as dictated by the signing physician. Renae Weber nurse practitioner acting as scribe for signing physic mike. Patient Condition at Discharge: Good Plan - Discharge Summary Discharge Rx Participant: No New Discharge Prescriptions: Continue Multivitamins, Thera [Multivitamin (formulary)] 1 tab PO DAILY Aspirin [Adult Low Dose Aspirin EC] 81 mg PO DAILY Ondansetron [Zofran] 4 mg PO TID PRN PRN Reason: Nausea Omeprazole 40 mg PO DAILY Discharge Medication List Aspirin [Adult Low Dose Aspirin EC] 81 mg PO DAILY 08/28/15 [History] Multivitamins, Thera [Multivitamin (formulary)] 1 tab PO DAILY 08/28/15 [History] Omeprazole 40 mg PO DAILY 04/29/19 [History] Ondansetron [Zofran] 4 mg PO TID PRN 04/29/19 [History] Follow up Appointment(s)/Referral(s): Nicole Green MD [STAFF PHYSICIAN] - 1 Week Soy Ball MD [Primary Care Provider] - 1 Week Discharge Disposition: HOME SELF-CARE
--- NOTE | 2019-05-01 14:24 | NM ---
EXAMINATION TYPE: NM bone scan whole body DATE OF EXAM: 05/01/2019 COMPARISON: NONE HISTORY: Metastatic melanoma. Delayed whole-body scanning was performed following the injection of 25.1 mCi Tc 99m MDP. Images acq uired 3 hours post injection. FINDINGS: There is some increased activity about the right ankle. There is increased activity in both wrists. There is some increased activity in the sternoclavicular joints bilaterally. There is a left knee prosthesis present. I do not see convincing evidence of metastatic disease. IMPRESSION: 1. DEGENERATIVE UPTAKE. 2. I DO NOT SEE CONVINCING EVIDENCE OF METASTASES AT THIS TIME.
--- NOTE | 2019-05-01 14:59 | P.PN ---
Subjective Progress Note Date: 05/01/19 Principal diagnosis: Metastatic melanoma with large right-sided pleural effusion This is a very pleasant 74 year old gentleman who follows with Dr. Ball as his primary care provider. He has a history of osteoarthritis with previous orthopedic surgeries, alcohol use with 3 beers per day, remote history of chronic tobacco dependence of approximate 40 years however quit in 1992. The patient does have a history of melanoma of the left eye requiring enucleation and placement of prosthetic. This was in August 2018 and no other treatment was indicated. He had been following with Dr. Melgar for surveillance. He had a computed tomography scan of the chest abdomen and pelvis in December 2018 which did reveal multiple bilateral lung nodules suspicious for metastasis. He had not been seen by a professional healthcare representative in the past. No oxygen. No inhalers in the outpatient setting. Approximately a month ago he developed shortness of breath mainly on exertion. He was undergoing outpatient workup by his PCP and yesterday's computed tomography scan of the abdomen revealed no abdominal pelvic acute process or neoplastic disease however CT scan of the chest revealed no evidence of pulmonary embolus however there was extensive interval metastatic disease progression with a malignant moderate to large right pleural effusion, development of a neoplastic pleural rind right mid and lower lung, numerous new and enlarging pulmonary nodules, extensive neoplastic involvement involving the right middle lobe, and new AP window and prevascular space lymphadenopathy. The right middle lobe is either entirely involved with tumor or opacified atelectasis. Just over half the right lower lobe is collapsed. Based on these findings the patient was called at home and told to report to the emergency room. He is seen today in consultation on the regular medical floor. He is maintaining good O2 saturations in the low 90s on room air. He's been afebrile. Hemodynamically stable. He denies any productive cough. No hemoptysis. White count 5.5. Hemoglobin 14.3. Creatinine 0.58. Ultrasound of the chest reveals an 18.8 cm pocket on the right. Reevaluated today on 05/01/2019, patient is doing well, relatively asymptomatic, felt much better since yesterday after draining about 2 L of serosanguineous fluid from his right pleural space. Patient had a bone scan today, and it did not reveal any evidence of metastatic disease to the bones. Overall the patient is doing well, and I have recommended discharge planning today. Follow-up with me on outpatient basis in one week. Based on the rate of fluid reaccumulation in the right pleural space, we can decide on outpatient basis whether the patient will eventually need a Pleurx catheter placement. Objective - Vital Signs Vital signs: Vital Signs Temp 97.8 F 05/01/19 11:42 Pulse 81 05/01/19 11:42 Resp 17 05/01/19 11:42 BP 121/71 05/01/19 11:42 Pulse Ox 94 L 05/01/19 11:42 Intake & Output 04/30/19 05/01/19 05/01/19 18:59 06:59 18:59 Intake Total 800 Balance 800 Intake: Oral 800 Other: Voiding Method Toilet Toilet Toilet # Voids 2 2 2 - Exam GENERAL EXAM: Alert, active, pleasant 74-year-old gentleman, on room air comfortable in no apparent distress. HEAD: Normocephalic. EYES: History of left eye enucleation with prosthesis NOSE: Clear with pink turbinates. THROAT: No erythema or exudates. NECK: No masses, no JVD. CHEST: No chest wall deformity. LUNGS: Clear breath sounds bilaterally much improved on the right compared to yesterday CVS: S1 and S2 normal with no audible murmur, regular rhythm. ABDOMEN: No hepatosplenomegaly, normal bowel sounds, no guarding or rigidity. SPINE: No scoliosis or deformity SKIN: No rashes CENTRAL NERVOUS SYSTEM: No focal deficits, tone is normal in all 4 extremities. EXTREMITIES: There is no peripheral edema. No clubbing, no cyanosis. Peripheral pulses are intact. - Labs CBC & Chem 7: 05/01/19 11:09 04/29/19 17:31 Labs: Abnormal Lab Results - Last 24 Hours (Table) 05/01/19 Range/Units 11:09 Lactate Dehydrogenase 653 H (313-618) U/L Microbiology - Last 24 Hours (Table) 04/30/19 17:20 Gram Stain - Preliminary Pleural Fluid Body Fluid Culture - Preliminary 04/30/19 17:20 Fungal Culture - Preliminary Pleural Fluid Assessment and Plan Assessment: 1 Dyspnea on exertion secondary to extensive interval metastatic disease progression compared to December 2018 with a malignant moderate to large right pleural effusion, status post right-sided thoracentesis with 2 L removed. 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 Recommendation: Agree with discharge planning home today. Discussed his condition with the admitting physician Dr. Zelaya. Patient is to see me in one week post discharge. Resume home meds. Follow up with oncology. Time with Patient: Less than 30
== END 2019-05-01 16:30 | disposition home or self-care (01) | DRG 181 ==
LOC: EC 16:44 → 5NMEDONC 19:44 → INTOOBSV 19:44 → 5NMEDONC 23:31 → OBSVTOIN 05-01 09:16
PROVIDERS: ADMIT Internal Medicine; ATTEND Internal Medicine
PROC: 0W993ZX Drainage of Right Pleural Cavity, Percutaneous Approach, Diagnostic (ICD-10-PCS; principal; 2019-04-30)
DX: C78.01 Secondary malignant neoplasm of right lung (principal); J91.0 Malignant pleural effusion; J98.11 Atelectasis; Z85.840 Personal history of malignant neoplasm of eye; Z87.891 Personal history of nicotine dependence; Z90.01 Acquired absence of eye; K21.9 Gastro-esophageal reflux disease without esophagitis; M15.9 Polyosteoarthritis, unspecified; R59.0 Localized enlarged lymph nodes; Z79.82 Long term (current) use of aspirin; Z82.49 Family history of ischemic heart disease and other diseases of the circulatory system; Z83.3 Family history of diabetes mellitus; Z97.0 Presence of artificial eye; Z96.652 Presence of left artificial knee joint
CPT/HCPCS: 36415; 71045; 71275; 74177; 76604; 78306; 80053; 83615; 83735; 85025; 85027; 85379; 85610; 85730; 87070; 87102; 87205; 87252; 87496; 87498; 87502; 87529; 87634; 87798; 89050; 96360; 99285

== ENCOUNTER → 2019-05-31 | Outpatient (CLI) | payer MEDICARE ==
[2019-05-31 16:47] LABS: African American GFR (CKD) >90 (>60 ml/min/1.73 sqM); Blood Urea Nitrogen 19 mg/dL (9-20); Non-African American GFR(CKD) >90 (>60 ml/min/1.73 sqM)
--- NOTE | 2019-05-31 17:38 | CT ---
EXAMINATION TYPE: CT angio chest DATE OF EXAM: 05/31/2019 COMPARISON: Most recent CT April 29, [address] January 06, 2019 HISTORY: SOB, history of metastatic melanoma. CT DLP: 426.6 mGycm. Automated Exposure Control for Dose Reduction was Utilized. CONTRAST: CTA scan of the thorax is performed with IV Contrast, patient injected with 100 mL of Isovue 370, pul monary embolism protocol. MIP Images are created on CT scanner and reviewed. FINDINGS: LUNGS: Persistent moderate to borderline large size right pleural fluid collection with pleural-based metastatic deposits as there marginal are multiple areas of hyperdense masses along the periphery re demonstrated. There is associated compressive atelectasis. Redemonstration of multiple bilateral pulm onary metastatic nodules and masses with some interval increase in size thought present. For referenc e left midlung lesion anteriorly measures 3.2 cm long axis current study versus 2.6 cm prior study. MEDIASTINUM: There is satisfactory enhancement of the pulmonary artery and its branches, there is no CT evidence for pulmonary embolism. Some local mass effect or narrowing from central pleural-based m etastatic lesions is felt present. There are no new greater than 1 cm hilar or mediastinal lymph node s. Small to tiny pericardial effusion is slightly larger versus prior. Left-sided mediastinal shift a gain seen. OTHER: Prominent multilevel spurring in the thoracolumbar spine is redemonstrated. S-shaped scoliosis . IMPRESSION: Moderate to large right pleural fluid collection slightly increased from prior. Diffuse p ulmonary and pleural-based metastatic disease progressed from most recent prior. No CT evidence for a cute pulmonary embolism.
== END | disposition home or self-care (01) ==
LOC: RADCTMAIN 16:02
PROVIDERS: ATTEND Internal Medicine Hematology & Oncology
DX: C43.9 Malignant melanoma of skin, unspecified (principal); R06.02 Shortness of breath
CPT/HCPCS: 82565; 84520; 71275; 36415; Q9967

== ENCOUNTER 2019-06-14 08:32 | Day surgery (SDC) | payer MEDICARE ==
[2019-06-14 08:54] VITALS: RESP 20; TEMP 97.7
[2019-06-14 09:24] LABS: Mean Platelet Volume 7.2; Platelet Count 270 k/uL (150-450)
[2019-06-14 09:35] LABS: INR 1.1 (<1.2); Prothrombin Time 11.3 sec (9.0-12.0)
[2019-06-14 11:00] VITALS: PULSE 96
--- NOTE | 2019-06-14 11:20 | XR ---
EXAMINATION TYPE: XR chest 1V portable DATE OF EXAM: 06/14/2019 Comparison: 04/30/2019 and 05/28/2019 Clinical History: 74-year-old male status post right thoracentesis Findings: Heart upper limits of normal in size. Multiple bilateral pulmonary nodules and masses redemonstrated. Pleural based mass lateral right hemithorax. No appreciable pneumothorax. Residual small right pleur al effusion with right basilar opacity. Impression: Residual small right pleural effusion with adjacent atelectasis and/or consolidation. No appreciable pneumothorax. Known pleural and parenchymal metastases.
[2019-06-14 11:28] VITALS: BP 117/70
--- NOTE | 2019-06-14 11:57 | US ---
EXAMINATION TYPE: US thoracentesis DATE OF EXAM: 06/14/2019 COMPARISON: NONE HISTORY: Pleural effusion. FINDINGS: Maximal barrier technique was utilized. The skin overlying a suitable pocket of fluid was localized and the overlying skin prepped and draped. Lidocaine was used for local anesthesia. Ultras ound was used with sterile technique. A 5 Macedonian guide over guide needle was advanced into the pleur al fluid collection using ultrasound guidance and a catheter advanced, needle removed. Approximately 2.1 liter(s) of serous sanguinous fluid was removed. Catheter was withdrawn and hemostasis achieved . There is no immediate complication. The patient discharged in stable condition without complicati on. IMPRESSION: STATUS POST ULTRASOUND GUIDED THORACENTESIS, POST PROCEDURE CHEST X-RAY PENDING. THIS MA OCEDURE WAS PERFORMED BY THE UNDERSIGNED.
== END 2019-06-14 11:25 | disposition home or self-care (01) ==
LOC: RADPROMAIN 08:32
PROVIDERS: ATTEND Internal Medicine Hematology & Oncology
DX: J90 Pleural effusion, not elsewhere classified (principal)
CPT/HCPCS: 32555; 36415; 71045; 85049; 85610

== ENCOUNTER 2019-06-24 16:05 | Inpatient (IN) | payer MEDICARE ==
[2019-06-24 16:56] LABS: Basophils % (A) 0 %; Eosinophils # (A) 0.3 k/uL (0-0.7); Eosinophils % (A) 4 %; HCT 36.9 % (39.0-53.0); HGB 12.2 gm/dL (13.0-17.5); Lymphocytes # (A) 1.1 k/uL (1.0-4.8); Lymphocytes % (A) 17 %; MCH 29.8 pg (25.0-35.0); MCHC 33.1 g/dL (31.0-37.0); MCV 90.2 fL (80.0-100.0); Mean Platelet Volume 7.8; Monocytes # (A) 0.6 k/uL (0-1.0); Monocytes % (A) 9 %; Neutrophils # (A) 4.1 k/uL (1.3-7.7); Neutrophils % (A) 66 %; Platelet Count 247 k/uL (150-450); RBC 4.09 m/uL (4.30-5.90); RDW 13.6 % (11.5-15.5); WBC 6.3 k/uL (3.8-10.6)
--- NOTE | 2019-06-24 16:56 | ED ---
SOB HPI - General Chief Complaint: Shortness of Breath Stated Complaint: SOB Time Seen by Provider: 06/24/19 16:19 Source: patient Mode of arrival: ambulatory Limitations: no limitations - History of Present Illness Initial Comments: Patient is a 74-year-old male, with history of pleural effusion, melanoma, presenting to emergency Department with complaints of increasing shortness of breath x 1 week. Patient had a thoracentesis performed 2 weeks ago and is scheduled to have a follow-up on June 27. Patient states he came in today for increase in shortness of breath at rest. He is normally on 2 L of oxygen at home. He denies any chest pain, palpatation, abdominal pain, nausea, vomiting. He does admit to bilateral lower leg swelling, has been present for weeks now. He denies fever, chills. Patient has no other complaints at this time. Upon arrival to the ER, patient was 88% on room air, rest of vitals normal. - Related Data Home Medications Medication Instructions Recorded Confirmed Multivitamins, Thera [Multivitamin 1 tab PO DAILY 08/28/15 06/24/19 (formulary)] Omeprazole 40 mg PO DAILY 04/29/19 06/24/19 Ondansetron [Zofran] 4 mg PO TID PRN 04/29/19 06/24/19 Metoclopramide [Reglan] 10 mg PO ACHS 06/24/19 06/24/19 Mirtazapine 7.5 mg PO W/SUPPER 06/24/19 06/24/19 Allergies Allergy/AdvReac Type Severity Reaction Status Date / Time No Known Allergies Allergy Verified 06/24/19 16:36 Review of Systems ROS Statement: Those systems with pertinent positive or pertinent negative responses have been documented in the HPI. ROS Other: All systems not noted in ROS Statement are negative. Past Medical History Past Medical History: Osteoarthritis (OA) Additional Past Medical History / Comment(s): Melanoma, left eyes status post prosthesis at [facility], pleural effusion History of Any Multi-Drug Resistant Organisms: None Reported Past Surgical History: Joint Replacement, Orthopedic Surgery Additional Past Surgical History / Comment(s): TOTAL LEFT KNEE, LEFT ROTATOR CUFF, MARY JO CARPAL TUNNEl X2 EACH, prosthesis left eye 08/2018, abdominal hernia repair, thoracentesis Past Anesthesia/Blood Transfusion Reactions: No Reported Reaction Past Psychological History: No Psychological Hx Reported Smoking Status: Former smoker Past Alcohol Use History: Daily Past Drug Use History: None Reported - Past Family History Mother Family Medical History: No Reported History Additional Family Medical History / Comment(s): Mother at age 73 with history of diabetes. Father Additional Family Medical History / Comment(s): Father at age 65 from a myocardial infarction. Brother(s) Additional Family Medical History / Comment(s): Patient has 4 brothers when his past from a myocardial infarction at age 57, one has from kidney disease, one from coronary artery disease. One brother is alive with history of diabetes. Sister(s) Additional Family Medical History / Comment(s): Patient does not have any sisters. Son(s) Additional Family Medical History / Comment(s): Patient has 2 sons and one has from complications following bariatric surgery with PE, one son is alive with history of high cholesterol. Patient is one daughter with diabetes. General Exam - General Exam Comments Initial Comments: GENERAL: Patient appears fatigued, increase of work of breathing, in no acute distress. HEAD: Atraumatic, normocephalic. EYES: Pupils equal round and reactive to light, extraocular movements intact, sclera anicteric, conjunctiva are normal. ENT: TMs normal, nares patent, oropharynx clear without exudates. Moist mucous membranes. NECK: Normal range of motion, supple without lymphadenopathy or JVD. LUNGS: Decreased sounds on the right compared to left. No wheezes rales or rhonchi. HEART: Regular rate and rhythm without murmurs, rubs or gallops. ABDOMEN: Soft, nontender, normoactive bowel sounds. No guarding, no rebound. No masses appreciated. : Deferred EXTREMITIES: Bilateral lower leg pitting edema. No clubbing or cyanosis. NEUROLOGICAL: Normal speech, normal gait. PSYCH: Normal mood, normal affect. SKIN: Warm, Dry, normal turgor, no rashes or lesions noted. Limitations: no limitations Course Vital Signs 06/24/19 06/24/19 06/24/19 16:20 16:23 16:30 Temperature 96.9 F L Pulse Rate 86 96 Respiratory 20 20 Rate Blood Pressure 116/71 116/71 O2 Sat by Pulse 88 L 85 L 88 L Oximetry 04/02/20 04/02/20 04/02/20 17:00 17:30 18:00 Temperature Pulse Rate 81 87 80 Respiratory 19 15 18 Rate Blood Pressure 111/70 107/73 110/67 O2 Sat by Pulse 97 95 95 Oximetry 06/24/19 18:30 Temperature Pulse Rate 76 Respiratory 19 Rate Blood Pressure 111/75 O2 Sat by Pulse 95 Oximetry Medical Decision Making - Medical Decision Making Patient 74-year-old male presented shortness of breath. He had thoracentesis performed 2 weeks ago and is scheduled for follow-up on June 27. Patient is a 88% on room air, normally on 2 L at home. Afebrile. On exam patient has diminished breath sounds in the right side. Chest x-ray shows a reaccumulation of right pleural effusion since the prior study. EKG reveals A. fib. Patient denies history of A. fib. Lab work shows INR 1.2, lactic acid is 2.5, troponin is 0.145. Patient denies having chest pain or palpitations. Patient will be admitted with Dr. Ball, with pulmonology and cardiology on consult. Patient is agreement with this plan of care. Discussed patient with Dr. Briones. - Lab Data Result diagrams: 06/24/19 16:49 06/24/19 16:49 Lab Results 06/24/19 06/24/19 06/24/19 Range/Units 16:49 16:49 16:49 WBC 6.3 (3.8-10.6) k/uL RBC 4.09 L (4.30-5.90) m/uL Hgb 12.2 L (13.0-17.5) gm/dL Hct 36.9 L (39.0-53.0) % MCV 90.2 (80.0-100.0) fL MCH 29.8 (25.0-35.0) pg MCHC 33.1 (31.0-37.0) g/dL RDW 13.6 (11.5-15.5) % Plt Count 247 (150-450) k/uL Neutrophils % 66 % Lymphocytes % 17 % Monocytes % 9 % Eosinophils % 4 % Basophils % 0 % Neutrophils # 4.1 (1.3-7.7) k/uL Lymphocytes # 1.1 (1.0-4.8) k/uL Monocytes # 0.6 (0-1.0) k/uL Eosinophils # 0.3 (0-0.7) k/uL Basophils # 0.0 (0-0.2) k/uL PT 12.0 (9.0-12.0) sec INR 1.2 H (<1.2) APTT 23.6 (22.0-30.0) sec Sodium 136 L (137-145) mmol/L Potassium 4.4 (3.5-5.1) mmol/L Chloride 99 (98-107) mmol/L Carbon Dioxide 27 (22-30) mmol/L Anion Gap 10 mmol/L BUN 29 H (9-20) mg/dL Creatinine 0.71 (0.66-1.25) mg/dL Est GFR (CKD-EPI)AfAm >90 (>60 ml/min/1.73 sqM) Est GFR (CKD-EPI)NonAf >90 (>60 ml/min/1.73 sqM) Glucose 133 H (74-99) mg/dL Lactic Ac Sepsis Rflx Plasma Lactic Acid Jamie (0.7-2.0) mmol/L Calcium 9.5 (8.4-10.2) mg/dL Total Bilirubin 1.2 (0.2-1.3) mg/dL AST 47 (17-59) U/L ALT 37 (4-49) U/L Alkaline Phosphatase 132 H (38-126) U/L Troponin I (0.000-0.034) ng/mL Total Protein 8.3 H (6.3-8.2) g/dL Albumin 3.7 (3.5-5.0) g/dL 06/24/19 06/24/19 06/24/19 Range/Units 16:49 16:49 17:29 WBC (3.8-10.6) k/uL RBC (4.30-5.90) m/uL Hgb (13.0-17.5) gm/dL Hct (39.0-53.0) % MCV (80.0-100.0) fL MCH (25.0-35.0) pg MCHC (31.0-37.0) g/dL RDW (11.5-15.5) % Plt Count (150-450) k/uL Neutrophils % % Lymphocytes % % Monocytes % % Eosinophils % % Basophils % % Neutrophils # (1.3-7.7) k/uL Lymphocytes # (1.0-4.8) k/uL Monocytes # (0-1.0) k/uL Eosinophils # (0-0.7) k/uL Basophils # (0-0.2) k/uL PT (9.0-12.0) sec INR (<1.2) APTT (22.0-30.0) sec Sodium (137-145) mmol/L Potassium (3.5-5.1) mmol/L Chloride (98-107) mmol/L Carbon Dioxide (22-30) mmol/L Anion Gap mmol/L BUN (9-20) mg/dL Creatinine (0.66-1.25) mg/dL Est GFR (CKD-EPI)AfAm (>60 ml/min/1.73 sqM) Est GFR (CKD-EPI)NonAf (>60 ml/min/1.73 sqM) Glucose (74-99) mg/dL Lactic Ac Sepsis Rflx Y Plasma Lactic Acid Jamie 2.5 H* (0.7-2.0) mmol/L Calcium (8.4-10.2) mg/dL Total Bilirubin (0.2-1.3) mg/dL AST (17-59) U/L ALT (4-49) U/L Alkaline Phosphatase (38-126) U/L Troponin I 0.145 H* (0.000-0.034) ng/mL Total Protein (6.3-8.2) g/dL Albumin (3.5-5.0) g/dL - EKG Data EKG Comments: Ventricular rate 86, QRS duration 94, QTC 43. Atrial fibrillation, incomplete right BBB. No signs of acute ischemia. Disposition Clinical Impression: Pleural effusion, A-fib, Elevated troponin Disposition: ADMITTED IP TO THIS HOSP Condition: Good Is patient prescribed a controlled substance at d/c from ED?: No Decision Date: 06/24/19 Decision Time: 18:15
[2019-06-24 17:08] LABS: INR 1.2 (<1.2)
[2019-06-24 17:09] LABS: Partial Thromboplastin Time 23.6 sec (22.0-30.0)
[2019-06-24 17:12] LABS: ALT 37 U/L (4-49); AST 47 U/L (17-59); African American GFR (CKD) >90 (>60 ml/min/1.73 sqM); Albumin 3.7 g/dL (3.5-5.0); Alkaline Phosphatase 132 U/L (38-126); Anion Gap 10 mmol/L; Blood Urea Nitrogen 29 mg/dL (9-20); Calcium 9.5 mg/dL (8.4-10.2); Carbon Dioxide 27 mmol/L (22-30); Chloride 99 mmol/L (98-107); Glucose 133 mg/dL (74-99); Non-African American GFR(CKD) >90 (>60 ml/min/1.73 sqM); Potassium 4.4 mmol/L (3.5-5.1); Sodium 136 mmol/L (137-145); Total Bilirubin 1.2 mg/dL (0.2-1.3); Total Protein 8.3 g/dL (6.3-8.2)
--- NOTE | 2019-06-24 17:36 | XR ---
EXAMINATION TYPE: XR chest 2V DATE OF EXAM: 06/24/2019 COMPARISON: 06/14/2019 HISTORY: Shortness of breath TECHNIQUE: Frontal and lateral views of the chest are obtained. FINDINGS: Scattered senescent parenchymal changes noted. Hyperinflation compatible with COPD. Again noted are bilateral pulmonary nodules and masses. There appears to be reaccumulation of right b asilar pleural effusion since the prior study. Underlying atelectasis and/or infiltrate difficult to exclude. Heart size is stable. Mediastinal structures are stable and grossly unremarkable. No evidence for hilar prominence. Degenerative changes dorsal spine. IMPRESSION: 1. There appears to be reaccumulation of right basilar pleural effusion since the prior study. Underl katelynn atelectasis and/or infiltrate difficult to exclude.
[2019-06-24] MEDS ORDERED: NALOXONE 0.4 MG/ML 1 ML VIAL IV PRN (18:08)
[2019-06-24] MEDS ORDERED: ONDANSETRON 4 MG TAB PO PRN (19:46)
[2019-06-24] MEDS: METOCLOPRAMIDE 10 MG TAB PO SCH (20:30)
[2019-06-24] MEDS: MIRTAZAPINE 15 MG TAB PO SCH (20:32)
[2019-06-25] MEDS: MULTIVITAMINS, THERA 1 EACH TAB PO SCH (08:36)
[2019-06-25] MEDS: PANTOPRAZOLE 40 MG TABLET PO SCH (08:36)
[2019-06-25] MEDS: METOCLOPRAMIDE 10 MG TAB PO SCH ×4 (08:36→21:21)
[2019-06-25] MEDS ORDERED: VERAPAMIL SR 120 MG TABLET.ER PO SCH (09:30)
[2019-06-25 09:57] LABS: Magnesium 2.1 mg/dL (1.6-2.3)
[2019-06-25] MEDS: FUROSEMIDE 10 MG/ML 4 ML VIAL IV SCH (10:05)
[2019-06-25 11:00] LABS: T4, Free (Free Thyroxine) 3.88 ng/dL (0.78-2.19)
--- NOTE | 2019-06-25 11:27 | P.CRDCN ---
History of Present Illness History of present illness: HISTORY OF PRESENTING ILLNESS This is a pleasant 74-year-old male past medical history significant for melanoma, osteoarthritis and daily alcohol use. He does not follow with a communications equipment installer for any. We have been asked to see in consultation for atrial fibrillation. He has been following with oncology and pulmonology as an outpatient for metastatic lung cancer. He most recently underwent a thoracentesis in May with 2 liters removed. He states for the last 2 weeks he has been experiencing increasing shortness of breath, orthopnea, cough and lower extremity edema. He also has some discomfort in his chest in the mid-sternal region when he takes a deep breath or coughs. He denies dizziness or palpitations. He denies ever being told he has an arrhythmia in the past. On arrival to ED he was saturating at 88% on room air. DIAGNOSTICS EKG reveals on arrival shows atrial fibrillation with incomplete right bundle branch block and poor R-wave progression. Repeat EKG this morning revealed multi-focal atrial tachycardia. Chest xray reveals reaccumulation of right basilar pleural effusion. Laboratory reviewed, WBC 6.3, hgb 12.2, plt 247, sodium 136, potassium 4.4, creatinine 0.71, lactic acid 2.5 repeat 1.9, ALT 132, troponin0.145, 0.126. 0.113, NTproBNP 7160. REVIEW OF SYSTEMS At the time of my exam: CONSTITUTIONAL: Denies fever or chills. CARDIOVASCULAR: Complains of shortness of breath and orthopnea. Denies exertional chest pain,PND or palpitations. RESPIRATORY: Complains of cough. GASTROINTESTINAL: Denies abdominal pain, diarrhea, constipation, nausea or vomi ting. MUSCULOSKELETAL: Denies myalgias. NEUROLOGIC: Denies numbness, tingling or weakness. ENDOCRINE: Denies fatigue, weight change, polydipsia or polyurina. GENITOURINARY: Denies burning, hematuria or urgency with micturation. HEMATOLOGIC: Denies history of anemia or bleeding. PHYSICAL EXAMINATION Blood pressure 109/67 heart rate 81 afebrile and maintaining oxygen saturation on nasal cannula. CONSTITUTIONAL: Mild respiratory distress with conversation. HEENT: Head is normocephalic. Pupils are equal, round. Sclerae anicteric. Mucous membranes of the mouth are moist. No JVD. No carotid bruit. CHEST EXAMINATION: Lungs are clear to auscultation. No chest wall tenderness is noted on palpation or with deep breathing. Diminished bilaterally. HEART EXAMINATION: Irregular rate and rhythm. S1, S2 heard. No murmurs, gallops or rub. Distant heart sounds. ABDOMEN: Soft, nontender. Positive bowel sounds. EXTREMITIES: 2+ peripheral pulses, bilateral lower extremity pitting 2+ pitting edema and no calf tenderness. NEUROLOGIC EXAMINATION: Patient is awake, alert and oriented x3. ASSESSMENT Paroxysmal atrial fibrillation, spontaneously converted to MAT on repeat EKG today. Multi-focal atrial tachycardia Recurrent pleural effusion s/p recent thoracentesis Acute hypoxic respiratory failure Malignant melanoma with multiple pulmonary nodules PLAN Obtain 2D echocardiogram and doppler study to assess cardiac structure and function. Initiate verapamil 120 mg daily as this tends to work better with MAT. Apply compliance monitor to continually assess rhythm. Check magnesium and TSH. Initiate small dose of daily IV lasix, 40 mg. Follow renal function and electrolytes daily. Given his recent diagnosis of metastatic lung cancer and the need for thoracentesis, we will hold on ocean transportation intermediary anti-coagulation at this time. Further recommendations to follow based on clinical course. Thank you kindly for this consultation. Nurse Practitioner note has been reviewed, I agree with a documented findings and plan of care. Patient was seen and examined. Past Medical History Past Medical History: Osteoarthritis (OA) Additional Past Medical History / Comment(s): Melanoma, left eyes status post prosthesis at [facility], pleural effusion History of Any Multi-Drug Resistant Organisms: None Reported Past Surgical History: Joint Replacement, Orthopedic Surgery Additional Past Surgical History / Comment(s): TOTAL LEFT KNEE, LEFT ROTATOR CU FF, MARY JO CARPAL TUNNEl X2 EACH, prosthesis left eye 08/2018, abdominal hernia repair, thoracentesis Past Anesthesia/Blood Transfusion Reactions: No Reported Reaction Past Psychological History: No Psychological Hx Reported Smoking Status: Former smoker Past Alcohol Use History: Daily Additional Past Alcohol Use History / Comment(s): DRINKS 3 BOTTLES OF BEER DAILY. QUIT SMOKING 25 YEARS AGO. SMOKED LESS THAN 1 PPD FOR 30 YEARS OR MORE. Past Drug Use History: None Reported - Past Family History Mother Family Medical History: No Reported History Additional Family Medical History / Comment(s): Mother at age 73 with history of diabetes. Father Additional Family Medical History / Comment(s): Father at age 65 from a myocardial infarction. Brother(s) Additional Family Medical History / Comment(s): Patient has 4 brothers when his past from a myocardial infarction at age 55, one has from kidney disease, one from coronary artery disease. One brother is alive with history of diabetes. Sister(s) Additional Family Medical History / Comment(s): Patient does not have any sisters. Son(s) Additional Family Medical History / Comment(s): Patient has 2 sons and one has from complications following bariatric surgery with PE, one son is alive with history of high cholesterol. Patient is one daughter with diabetes. Medications and Allergies Home Medications Medication Instructions Recorded Confirmed Type Multivitamins, Thera [Multivitamin 1 tab PO DAILY 08/28/15 06/24/19 History (formulary)] Omeprazole 40 mg PO DAILY 04/29/19 06/24/19 History Ondansetron [Zofran] 4 mg PO TID PRN 04/29/19 06/24/19 History Metoclopramide [Reglan] 10 mg PO ACHS 06/24/19 06/24/19 History Mirtazapine 7.5 mg PO W/SUPPER 06/24/19 06/24/19 History Allergies Allergy/AdvReac Type Severity Reaction Status Date / Time No Known Allergies Allergy Verified 06/24/19 16:36 Physical Exam Vitals: Vital Signs Temp Pulse Pulse Resp BP BP Pulse Ox 06/25/19 05:00 97.8 F 81 16 109/67 94 L 06/25/19 00:00 18 06/24/19 20:32 97.6 F 88 18 112/68 94 L 06/24/19 19:28 97.4 F L 80 16 112/78 93 L 06/24/19 18:30 76 19 111/75 95 06/24/19 18:00 80 18 110/67 95 06/24/19 17:30 87 15 107/73 95 06/24/19 17:00 81 19 111/70 97 06/24/19 16:30 96 20 116/71 88 L 06/24/19 16:23 85 L 06/24/19 16:20 96.9 F L 86 20 116/71 88 L Intake and Output 06/24/19 06/25/19 06/25/19 22:59 06:59 14:59 Intake Total 360 120 Balance 360 120 Intake: Oral 360 120 Other: # Voids 1 1 Weight 127.006 kg Results 06/24/19 16:49 06/24/19 16:49 Cardiac Enzymes 06/24/19 06/24/19 06/24/19 Range/Units 16:49 16:49 21:12 AST 47 (17-59) U/L Troponin I 0.145 H* 0.126 H* (0.000-0.034) ng/mL 06/25/19 Range/Units 05:41 AST (17-59) U/L Troponin I 0.113 H* (0.000-0.034) ng/mL Coagulation 06/24/19 Range/Units 16:49 PT 12.0 (9.0-12.0) sec APTT 23.6 (22.0-30.0) sec CBC 06/24/19 Range/Units 16:49 WBC 6.3 (3.8-10.6) k/uL RBC 4.09 L (4.30-5.90) m/uL Hgb 12.2 L (13.0-17.5) gm/dL Hct 36.9 L (39.0-53.0) % Plt Count 247 (150-450) k/uL Comprehensive Metabolic Panel 06/24/19 Range/Units 16:49 Sodium 136 L (137-145) mmol/L Potassium 4.4 (3.5-5.1) mmol/L Chloride 99 (98-107) mmol/L Carbon Dioxide 27 (22-30) mmol/L BUN 29 H (9-20) mg/dL Creatinine 0.71 (0.66-1.25) mg/dL Glucose 133 H (74-99) mg/dL Calcium 9.5 (8.4-10.2) mg/dL AST 47 (17-59) U/L ALT 37 (4-49) U/L Alkaline Phosphatase 132 H (38-126) U/L Total Protein 8.3 H (6.3-8.2) g/dL Albumin 3.7 (3.5-5.0) g/dL Current Medications Generic Name Dose Route Start Last Admin Trade Name Freq PRN Reason Stop Dose Admin Metoclopramide HCl 10 mg 06/24/19 21:00 06/25/19 08:36 Reglan PO 10 mg ACHS DANIELA Administration Mirtazapine 7.5 mg 06/24/19 20:00 06/24/19 20:32 Remeron PO 7.5 mg W/SUPPER DANIELA Administration Multivitamins 1 each 06/25/19 09:00 06/25/19 08:36 Theragran PO 1 each DAILY DANIELA Administration Naloxone HCl 0.2 mg 06/24/19 18:08 Narcan IV Q2M PRN Opioid Reversal Ondansetron HCl 4 mg 06/24/19 19:46 Zofran PO TID PRN Nausea Pantoprazole Sodium 40 mg 06/25/19 07:30 06/25/19 08:36 Protonix PO 40 mg [id number] DANIELA Administration Verapamil HCl 120 mg 06/25/19 09:30 Isoptin Sr PO DAILY DANIELA Intake and Output 06/24/19 06/25/19 06/25/19 22:59 06:59 14:59 Intake Total 360 120 Balance 360 120 Intake: Oral 360 120 Other: # Voids 1 1 Weight 127.006 kg 06/24/19 16:49 06/24/19 16:49
--- NOTE | 2019-06-25 11:52 | P.HPIM ---
History of Present Illness H&P Date: 06/25/19 his is a 74-year-old male patient of Dr. Ball and Dr. Melgar with past medical history of melanoma of the left thigh status post prosthesis, osteoarthritis, remote history of tobacco use, alcohol use. In April patient was admitted after having abnormal abdominal ultrasound. CTA of the chest was negative for pulmonary embolism. There was extensive interval metastatic disease progression with malignant moderate to large right pleural effusion, development of neoplastic pleural right mid and lower lung, numerous new and enlarging pulmonary nodules, extensive neoplastic involvement throughout the right middle lobe and new AP window and prevascular space lymphadenopathy. Right middle lobe is either entirely involved with tumor or opacified. CT of the abdomen and pelvis with contrast revealed no abdominalopelvic neoplastic disease. Ultrasound of the chest was marked for right-sided 18.8 cm pleural effusion and he underwent thoracentesis with Dr. Green with removal of 2 L of fluid. Pathology revealed rare cells consistent with metastatic melanoma in the background of chronic pleuritis. On June 13, patient underwent ultrasound- guided thoracentesis with Dr. Rush as an outpatient with removal of 2.1 L of serosanguineous fluid. Patient is complaining of shortness of breath with minimal activity. He also complains of increased edema to lower extremity. Patient has been on chemotherapy/immunotherapy which has been downgraded recently. Patient came into [facility] emergency center for evaluation. Initial pulse ox 85-88%, afebrile, heart rate in the 80s and 90s, blood pressure 116/71. WBC 6.3, hemoglobin 12.2, platelet count 247. Sodium 136, potassium 4.4, chloride 99, CO2 27, BUN 29 and creatinine 0.71, blood sugar 133. Total bilirubin 1.2, AST 47, ALT 37, alkaline phosphatase 132. Albumin 3.7 total protein 8.3. Troponin 0.145. Lactic acid 2.5. EKG atrial fibrillation with incomplete right bundle branch block at rate of 86. Chest x-ray reveals reaccumulation of right basilar pleural effusion since prior study. Underlying atelectasis and/or infiltrate difficult to exclude. Patient was admitted to the MedSur floor and consult in place with pulmonary medicine and cardiology. Repeat EKG this morning revealed multi-focal atrial tachycardia. Review of Systems Constitutional: Reports fatigue, Denies chills, Denies fever, Denies malaise, Denies poor appetite Eyes: denies blurred vision, denies pain Ears, nose, mouth and throat: Denies dysphagia, Denies headache, Denies nasal congestion, Denies nasal discharge, Denies sore throat, Denies vertigo Cardiovascular: Reports decreased exercise tolerance, Reports dyspnea on exertion, Denies chest pain, Denies edema, reports leg edema, Denies lightheadedness, reports shortness of breath, Denies syncope Respiratory: Denies cough, Denies cough with sputum, reports dyspnea, Denies excessive sputum, Denies hemoptysis, Denies home oxygen, Denies respiratory infections, Denies wheezing Gastrointestinal: Denies abdominal pain, Denies diarrhea, Denies nausea, Denies vomiting Genitourinary: Denies dysuria, Denies urinary retention Musculoskeletal: Reports muscle weakness, Denies myalgias Integumentary: Denies pruritus, Denies rash, Denies wounds Neurological: Denies change in mentation, Denies change in speech, Denies numbness, reports generalized weakness and fatigue Psychiatric: Denies anxiety, Denies depression Endocrine: Denies fatigue, Denies weight change Past Medical History Past Medical History: Osteoarthritis (OA) Additional Past Medical History / Comment(s): Melanoma, left eyes status post prosthesis at [facility], pleural effusion History of Any Multi-Drug Resistant Organisms: None Reported Past Surgical History: Joint Replacement, Orthopedic Surgery Additional Past Surgical History / Comment(s): TOTAL LEFT KNEE, LEFT ROTATOR CUFF, MARY JO CARPAL TUNNEl X2 EACH, prosthesis left eye 08/2018, abdominal hernia repair, thoracentesis Past Anesthesia/Blood Transfusion Reactions: No Reported Reaction Past Psychological History: No Psychological Hx Reported Smoking Status: Former smoker Past Alcohol Use History: Daily Additional Past Alcohol Use History / Comment(s): DRINKS 3 BOTTLES OF BEER DAILY. QUIT SMOKING 25 YEARS AGO. SMOKED LESS THAN 1 PPD FOR 30 YEARS OR MORE. Past Drug Use History: None Reported - Past Family History Mother Family Medical History: No Reported History Additional Family Medical History / Comment(s): Mother at age 73 with history of diabetes. Father Additional Family Medical History / Comment(s): Father at age 65 from a myocardial infarction. Brother(s) Additional Family Medical History / Comment(s): Patient has 4 brothers when his past from a myocardial infarction at age 55, one has from kidney disease, one from coronary artery disease. One brother is alive with history of diabetes. Sister(s) Additional Family Medical History / Comment(s): Patient does not have any sisters. Son(s) Additional Family Medical History / Comment(s): Patient has 2 sons and one has from complications following bariatric surgery with PE, one son is alive with history of high cholesterol. Patient is one daughter with diabetes. Medications and Allergies Home Medications Medication Instructions Recorded Confirmed Type Multivitamins, Thera [Multivitamin 1 tab PO DAILY 08/28/15 06/24/19 History (formulary)] Omeprazole 40 mg PO DAILY 04/29/19 06/24/19 History Ondansetron [Zofran] 4 mg PO TID PRN 04/29/19 06/24/19 History Metoclopramide [Reglan] 10 mg PO ACHS 06/24/19 06/24/19 History Mirtazapine 7.5 mg PO W/SUPPER 06/24/19 06/24/19 History Allergies Allergy/AdvReac Type Severity Reaction Status Date / Time No Known Allergies Allergy Verified 06/24/19 16:36 Physical Exam Vitals: Vital Signs Temp Pulse Pulse Resp BP BP Pulse Ox 06/25/19 05:00 97.8 F 81 16 109/67 94 L 06/25/19 00:00 18 06/24/19 20:32 97.6 F 88 18 112/68 94 L 06/24/19 19:28 97.4 F L 80 16 112/78 93 L 06/24/19 18:30 76 19 111/75 95 06/24/19 18:00 80 18 110/67 95 06/24/19 17:30 87 15 107/73 95 06/24/19 17:00 81 19 111/70 97 06/24/19 16:30 96 20 116/71 88 L 06/24/19 16:23 85 L 06/24/19 16:20 96.9 F L 86 20 116/71 88 L Intake and Output 06/24/19 06/25/19 06/25/19 22:59 06:59 14:59 Intake Total 360 120 Balance 360 120 Intake: Oral 360 120 Other: # Voids 1 1 Weight 127.006 kg Gen: This is a 74-year-old male. Patient sitting on the edge of the bed and appears to be comfortable. No respiratory distress is noted. HEENT: Head is atraumatic, normocephalic. Pupil round. Prosthesis left eye. Sclerae is anicteric. NECK: Supple. No JVD. No lymphadenopathy. No thyromegaly. LUNGS: Diminished to the right base, no egophony. No wheezes or rhonchi. No intercostal retractions. HEART: Irregular rate and rhythm. No murmur. ABDOMEN: Soft. Bowel sounds are present. No masses. No tenderness. EXTREMITIES: 2+ pedal edema. No calf tenderness. Dorsalis pedis palpable bilaterally. NEUROLOGICAL: Patient is awake, alert and oriented x3. Cranial nerves 2 through 12 are grossly intact. Results CBC & Chem 7: 06/24/19 16:49 06/24/19 16:49 Labs: Abnormal Lab Results - Last 24 Hours (Table) 06/24/19 06/24/19 06/24/19 Range/Units 16:49 16:49 16:49 RBC 4.09 L (4.30-5.90) m/uL Hgb 12.2 L (13.0-17.5) gm/dL Hct 36.9 L (39.0-53.0) % INR 1.2 H (<1.2) Sodium 136 L (137-145) mmol/L BUN 29 H (9-20) mg/dL Glucose 133 H (74-99) mg/dL Plasma Lactic Acid Jamie (0.7-2.0) mmol/L Alkaline Phosphatase 132 H (38-126) U/L Troponin I (0.000-0.034) ng/mL Total Protein 8.3 H (6.3-8.2) g/dL 06/24/19 06/24/19 06/24/19 Range/Units 16:49 16:49 21:03 RBC (4.30-5.90) m/uL Hgb (13.0-17.5) gm/dL Hct (39.0-53.0) % INR (<1.2) Sodium (137-145) mmol/L BUN (9-20) mg/dL Glucose (74-99) mg/dL Plasma Lactic Acid Jamie 2.5 H* 2.1 H* (0.7-2.0) mmol/L Alkaline Phosphatase (38-126) U/L Troponin I 0.145 H* (0.000-0.034) ng/mL Total Protein (6.3-8.2) g/dL 06/24/19 06/25/19 Range/Units 21:12 05:41 RBC (4.30-5.90) m/uL Hgb (13.0-17.5) gm/dL Hct (39.0-53.0) % INR (<1.2) Sodium (137-145) mmol/L BUN (9-20) mg/dL Glucose (74-99) mg/dL Plasma Lactic Acid Jamie (0.7-2.0) mmol/L Alkaline Phosphatase (38-126) U/L Troponin I 0.126 H* 0.113 H* (0.000-0.034) ng/mL Total Protein (6.3-8.2) g/dL Thrombosis Risk Factor Assmnt - DVT/VTE Prophylaxis DVT/VTE Prophylaxis: Pharmacologic Prophylaxis ordered - Choose All That Apply Any of the Below Risk Factors Present?: Yes Each Factor Represents 1 point: Minor surgery planned, Obesity (BMI >25), Swollen legs (current) Each Risk Factor Represents 3 Points: Age 75 years or older Other congenital or acquired thrombophilia - If yes, enter type in comment: No Thrombosis Risk Factor Assessment Total Risk Factor Score: 6 Thrombosis Risk Factor Assessment Level: High Risk Assessment and Plan Plan: 1. Acute hypoxic respiratory failure secondary to recurrent right pleural effusion with metastatic melanoma progression. Patient admitted to the MedSur floor, consult with pulmonary medicine. Lasix 40 mg IV daily. Cardiology consult appreciated. 2. 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 3. New onset atrial fibrillation, paroxysmal atrial fibrillation, status post conversion to multifocal atrial tachycardia. Cardiology consult appreciated. Patient started on verapamil SR 120 mg daily. No plan for anticoagulation. 4. Osteoarthritis, generalized, stable. 5. Remote history of tobacco use and quit in 1992. 6. Daily alcohol use. 7. GERD and GI prophylaxis. Protonix. 8. DVT prophylaxis. Heparin subcu. Patient will be admitted to the hospital for a minimum of 2 night stay. Discharge plan: Most likely return home. Impression and plan of care have been directed as dictated by the signing physician. Renae Weber nurse practitioner acting as scribe for signing physician.
--- NOTE | 2019-06-25 13:00 | ECHOF ---
Referral Reason:sob, elev trop, new afib MEASUREMENTS -------- HEIGHT: 180.3 cm WEIGHT: 127.0 kg BP: RVIDd: 3.0 cm (< 3.3) IVSd: 1.1 cm (0.6 - 1.1) LVIDd: 4.6 cm (3.9 - 5.3) LVPWd: 1.6 cm (0.6 - 1.1) IVSs: 1.4 cm LVIDs: 3.9 cm LVPWs: 1.5 cm LAESV Index (A-L): 36.90 ml/m Ao Diam: 2.5 cm (2.0 - 3.7) AV Cusp: 1.1 cm (1.5 - 2.6) LA Diam: 3.7 cm (2.7 - 3.8) AV maxP.00 mmHg AV meanP.81 mmHg RAP: 5.00 mmHg RVSP: 41.24 mmHg FINDINGS -------- Undetermined rhythm. This was a technically adequate study. The left ventricular size is normal. There is moderate concentric left ventricular hypertrophy. O verall left ventricular systolic function is moderate-severely impaired with, an EF between 30 - 35 % . The right ventricle is normal in size. LA is moderately dilated 34-39 ml/m2 The right atrial size is normal. There is moderate to severe aortic valve sclerosis. There is [id number] aortic stenosis pre sent. Peak/mean gradient across the Aortic Valve is 63.00mmHg / 39.81mmHg. Severe mitral annular calcification present. Moderate mitral regurgitation is present. The tricuspid valve appears structurally normal. Mild tricuspid regurgitation present. There is m ild pulmonary hypertension. The right ventricular systolic pressure, as measured by Doppler, is 41. 24mmHg. There is no pulmonic regurgitation present. The aortic root size is normal. IVC Not well visulized. There is no pericardial effusion. CONCLUSIONS -------- 1. The left ventricular size is normal. 2. There is moderate concentric left ventricular hypertrophy. 3. Overall left ventricular systolic function is moderate-severely impaired with, an EF between 30 - 35 %. 4. LA is moderately dilated 34-39 ml/m2 5. There is moderate to severe aortic valve sclerosis. 6. There is [id number] aortic stenosis present. 7. Peak/mean gradient across the Aortic Valve is 63.00mmHg / 39.81mmHg. 8. Severe mitral annular calcification present. 9. Moderate mitral regurgitation is present. 10. Mild tricuspid regurgitation present. 11. There is mild pulmonary hypertension. 12. There is no pulmonic regurgitation present. 13. IVC Not well visulized. 14. There is no pericardial effusion. [employer]: Lissy Krishnamurthy RDCS
--- NOTE | 2019-06-25 13:12 | P.CNPUL ---
History of Present Illness Consult date: 06/25/19 Requesting physician: Soy Ball Reason for consult: dyspnea, abnormal CXR/CT (Recurrent right-sided pleural effusions) Chief complaint: Shortness of breath History of present illness: This is a very pleasant 74-year-old gentleman who follows with Dr. Ball as his primary care provider. He has a history of osteoarthritis with previous orthopedic surgeries, alcohol use of approximate 3 beers per day, remote history of chronic tobacco dependence for approximate 40 years but did quit in 1992. 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 No other treatment was indicated at that time. He had been following with Dr. Romero for surveillance. Computed tomography scan of the chest abdomen and pelvis in December 2018 revealed multiple bilateral lung nodules suspicious for metastasis. He has been receiving chemotherapy/immunotherapy which was recently downgraded. He had been seen by our group back in April 2019 with with recurrent right-sided pleural effusions.He had undergone thoracentesis of the right chest positive for metastatic myeloma. His last thoracentesis was performed in the outpatient setting by interventional radiology on 06/14/2019 with 2.1 L removed. He presented here to the emergency room yesterday with complaints of increasing shortness of breath, fatigue and weakness. Chest x-ray does show recurrent right-sided pleural effusion with atelectasis. He is seen today in consultation on the regular medical floor. He is currently sitting up in a chair at the bedside. Awake and alert in no acute distress. He is dyspneic with conversation and minimal exertion. He is quite fatigued still. He is maintaining O2 saturations in the 90s on 2 L/m per nasal cannula. He is afebrile. Hemodynamically stable. White count 6.3. Hemoglobin 12.2. Platelet count 247. INR 1.2. Sodium 136. Potassium 4.4. Creatinine 0.71. Initial lactic 2.5. Currently 1.9. Troponin 0.145, 0.126, 0.113. ProBNP 7160. TSH less than 0.015. Free T4 3 0.88. Review of Systems REVIEW OF SYSTEMS: CONSTITUTIONAL: Denies any recent significant weight loss or weight gain. EYES: Enucleated left eye. EARS, NOSE, MOUTH, THROAT: Denies headaches, denies sore throat. CARDIOVASCULAR: Denies chest pain, palpitations or syncopal episodes. RESPIRATORY: Positive for shortness of breath mainly with exertion. No cough or congestion. No hemoptysis.. GASTROINTESTINAL: Denies change in appetite, denies abdominal pain GENITOURINARY: Denies hematuria, denies infections. MUSKULOSKELETAL: Denies pain, denies swelling. INTEGUMENTARY: Denies rash, denies eczema. NEUROLOGICAL: Denies recent memory loss, no recent seizure activity. PSYCHIATRIC: Denies anxiety, denies depression. HEMATOLOGIC/LYMPHATIC: Denies anemia, denies enlarged lymph nodes. Past Medical History Past Medical History: Osteoarthritis (OA) Additional Past Medical History / Comment(s): Melanoma, left eyes status post prosthesis at [facility], pleural effusion History of Any Multi-Drug Resistant Organisms: None Reported Past Surgical History: Joint Replacement, Orthopedic Surgery Additional Past Surgical History / Comment(s): TOTAL LEFT KNEE, LEFT ROTATOR CUFF, MARY JO CARPAL TUNNEl X2 EACH, prosthesis left eye 08/2018, abdominal hernia repair, thoracentesis Past Anesthesia/Blood Transfusion Reactions: No Reported Reaction Past Psychological History: No Psychological Hx Reported Smoking Status: Former smoker Past Alcohol Use History: Daily Additional Past Alcohol Use History / Comment(s): DRINKS 3 BOTTLES OF BEER DAILY. QUIT SMOKING 25 YEARS AGO. SMOKED LESS THAN 1 PPD FOR 30 YEARS OR MORE. Past Drug Use History: None Reported - Past Family History Mother Family Medical History: No Reported History Additional Family Medical History / Comment(s): Mother at age 73 with history of diabetes. Father Additional Family Medical History / Comment(s): Father at age 65 from a myocardial infarction. Brother(s) Additional Family Medical History / Comment(s): Patient has 4 brothers when his past from a myocardial infarction at age 57, one has from kidney disease, one from coronary artery disease. One brother is alive with history of diabetes. Sister(s) Additional Family Medical History / Comment(s): Patient does not have any sisters. Son(s) Additional Family Medical History / Comment(s): Patient has 2 sons and one has from complications following bariatric surgery with PE, one son is alive with history of high cholesterol. Patient is one daughter with diabetes. Medications and Allergies Home Medications Medication Instructions Recorded Confirmed Type Multivitamins, Thera [Multivitamin 1 tab PO DAILY 08/28/15 06/24/19 History (formulary)] Omeprazole 40 mg PO DAILY 04/29/19 06/24/19 History Ondansetron [Zofran] 4 mg PO TID PRN 04/29/19 06/24/19 History Metoclopramide [Reglan] 10 mg PO ACHS 06/24/19 06/24/19 History Mirtazapine 7.5 mg PO W/SUPPER 06/24/19 06/24/19 History Allergies Allergy/AdvReac Type Severity Reaction Status Date / Time No Known Allergies Allergy Verified 06/24/19 16:36 Physical Exam Vitals: Vital Signs Temp Pulse Pulse Resp BP BP Pulse Ox 06/25/19 05:00 97.8 F 81 16 109/67 94 L 06/25/19 00:00 18 06/24/19 20:32 97.6 F 88 18 112/68 94 L 06/24/19 19:28 97.4 F L 80 16 112/78 93 L 06/24/19 18:30 76 19 111/75 95 06/24/19 18:00 80 18 110/67 95 06/24/19 17:30 87 15 107/73 95 06/24/19 17:00 81 19 111/70 97 06/24/19 16:30 96 20 116/71 88 L 06/24/19 16:23 85 L 06/24/19 16:20 96.9 F L 86 20 116/71 88 L Intake and Output 06/24/19 06/25/19 06/25/19 22:59 06:59 14:59 Intake Total 360 120 Balance 360 120 Intake: Oral 360 120 Other: # Voids 1 1 Weight 127.006 kg GENERAL EXAM: Alert, active, pleasant 74-year-old gentleman, on 2 L nasal cannula, comfortable in no apparent distress. HEAD: Normocephalic. EYES: History of left eye enucleation with prosthesis NOSE: Clear with pink turbinates. THROAT: No erythema or exudates. NECK: No masses, no JVD. CHEST: No chest wall deformity. LUNGS: Diminished in the right mid and lower lung, crackles. CVS: S1 and S2 normal with positive audible murmur, regular rhythm. ABDOMEN: No hepatosplenomegaly, normal bowel sounds, no guarding or rigidity. SPINE: No scoliosis or deformity SKIN: No rashes CENTRAL NERVOUS SYSTEM: No focal deficits, tone is normal in all 4 extremities. EXTREMITIES: There is 1+ peripheral edema. No clubbing, no cyanosis. Peripheral pulses are intact. Results - Laboratory Findings CBC and BMP: 06/24/19 16:49 06/24/19 16:49 PT/INR, D-dimer PT 12.0 sec (9.0-12.0) 06/24/19 16:49 INR 1.2 (<1.2) H 06/24/19 16:49 Abnormal lab findings: Abnormal Labs 06/24/19 06/24/19 06/24/19 16:49 16:49 16:49 RBC 4.09 L Hgb 12.2 L Hct 36.9 L INR 1.2 H Sodium 136 L BUN 29 H Glucose 133 H Plasma Lactic Acid Jamie Alkaline Phosphatase 132 H Troponin I Total Protein 8.3 H TSH Free T4 06/24/19 06/24/19 06/24/19 16:49 16:49 21:03 RBC Hgb Hct INR Sodium BUN Glucose Plasma Lactic Acid Jamie 2.5 H* 2.1 H* Alkaline Phosphatase Troponin I 0.145 H* Total Protein TSH Free T4 06/24/19 06/25/19 06/25/19 21:12 05:41 05:41 RBC Hgb Hct INR Sodium BUN Glucose Plasma Lactic Acid Jamie Alkaline Phosphatase Troponin I 0.126 H* 0.113 H* Total Protein TSH <0.015 L Free T4 3.88 H - Diagnostic Findings Chest x-ray: image reviewed Assessment and Plan Assessment: 1 Dyspnea on exertion secondary recurrent right-sided pleural effusions sec ondary to extensive metastatic disease progression compared to December 2018 with a malignant right pleural effusion, development of a neoplastic pleural rind right mid and lower lung, numerous new and enlarging pulmonary nodules, extensive neoplastic involvement throughout the right middle lobe, and new AP window and prevascular space lymphadenopathy. The right middle lobe is either entirely involved with tumor or opacified atelectasis. The patient has undergone thoracentesis in April 2019 and again on 06/14/2019. The fluid is positive for metastatic melanoma. 2 Melanoma of the left eye status post enucleation in August 2018 at the [facility] in [place], no chemotherapy or radiation 3 Multiple bilateral pulmonary nodules noted in December 2018, the largest of which measuring 1 cm 4 Acute exacerbation of systolic congestive heart failure with moderate to severe impaired left ventricular systolic function with ejection fraction 30- 35%. 5 Moderate aortic stenosis and severely calcified mitral valve and moderate mitral regurgitation 6 Chronic tobacco dependence of nearly 50 years however quit in 1992 7 Osteoarthritis with multiple orthopedic surgery 8 Alcohol use, 3 beers daily 9 Troponin leak Plan: The patient was seen and evaluated by Dr. Green Obtain ultrasound of the right chest Perform thoracentesis if significant We'll continue to follow and make further recommendations based on his clinical status I, the cosigning physician, performed a history & physical examination of the patient. Lungs sounds with crackles, diminished in the right lung. Maintaining good O2 saturations in the 90s on 2 L/m per nasal cannula. I discussed the assessment and plan of care with my nurse practitioner, Becky Hwang. I attest to the above consultation as dictated by her. Time with Patient: Greater than 30
--- NOTE | 2019-06-25 13:55 | US ---
EXAMINATION TYPE: US chest DATE OF EXAM: 06/25/2019 COMPARISON: Ultrasound chest 06/14/2019 CLINICAL HISTORY: Markings for thoracentesis by pulmonary staff. TECHNIQUE: Targeted ultrasound of the posterior lower EXAM MEASUREMENTS: Right Pleural Effusion pocket size: 2.6 cm Right skin surface to fluid distance: 2.2 cm Left Pleural Effusion pocket size: 0.5 cm Left skin surface to fluid distance: 2.2 cm Right side marked for possible thoracentesis outside the dept. Left side not marked for possible thoracentesis outside the dept. Pulmonologists are able to review the images in the patient?s EMR. IMPRESSIONS: 1. Right pleural effusion, smaller than 06/14/2019 2. Very minimal left pleural fluid.
[2019-06-25] MEDS: MIRTAZAPINE 15 MG TAB PO SCH (17:11)
[2019-06-25] MEDS: METOPROLOL TARTRATE 25 MG TAB PO SCH (21:21)
[2019-06-26 07:10] LABS: African American GFR (CKD) >90 (>60 ml/min/1.73 sqM); Anion Gap 8 mmol/L; Blood Urea Nitrogen 25 mg/dL (9-20); Calcium 9.3 mg/dL (8.4-10.2); Carbon Dioxide 31 mmol/L (22-30); Chloride 97 mmol/L (98-107); Glucose 123 mg/dL (74-99); Non-African American GFR(CKD) >90 (>60 ml/min/1.73 sqM); Potassium 4.2 mmol/L (3.5-5.1); Sodium 136 mmol/L (137-145)
[2019-06-26] MEDS: PANTOPRAZOLE 40 MG TABLET PO SCH (09:08)
[2019-06-26] MEDS: METOPROLOL TARTRATE 25 MG TAB PO SCH ×2 (09:08→20:37)
[2019-06-26] MEDS: MULTIVITAMINS, THERA 1 EACH TAB PO SCH (09:08)
[2019-06-26] MEDS: METOCLOPRAMIDE 10 MG TAB PO SCH ×4 (09:08→20:37)
[2019-06-26] MEDS: FUROSEMIDE 10 MG/ML 4 ML VIAL IV SCH (09:09)
--- NOTE | 2019-06-26 10:56 | P.PN ---
Subjective Progress Note Date: 06/26/19 This is a 74-year-old male patient of Dr. Ball and Dr. Melgar with past medical history of melanoma of the left thigh status post prosthesis, osteoarthritis, remote history of tobacco use, alcohol use. In April patient was admitted after having abnormal abdominal ultrasound. CTA of the chest was negative for pulmonary embolism. There was extensive interval metastatic disease progression with malignant moderate to large right pleural effusion, development of neoplastic pleural right mid and lower lung, numerous new and enlarging pulmonary nodules, extensive neoplastic involvement throughout the right middle lobe and new AP window and prevascular space lymphadenopathy. Right middle lobe is either entirely involved with tumor or opacified. CT of the abdomen and pelvis with contrast revealed no abdominalopelvic neoplastic disease. Ultrasound of the chest was marked for right-sided 18.8 cm pleural effusion and he underwent thoracentesis with Dr. Green with removal of 2 L of f luid. Pathology revealed rare cells consistent with metastatic melanoma in the background of chronic pleuritis. On June 13, patient underwent ultrasound- guided thoracentesis with Dr. Rush as an outpatient with removal of 2.1 L of serosanguineous fluid. Patient is complaining of shortness of breath with minimal activity. He also complains of increased edema to lower extremity. Patient has been on chemotherapy/immunotherapy which has been downgraded recently. Patient came into [facility] emergency center for evaluation. Initial pulse ox 85-88%, afebrile, heart rate in the 80s and 90s, blood pressure 116/71. WBC 6.3, hemoglobin 12.2, platelet count 247. Sodium 136, potassium 4.4, chloride 99, CO2 27, BUN 29 and creatinine 0.71, blood sugar 133. Total bilirubin 1.2, AST 47, ALT 37, alkaline phosphatase 132. Albumin 3.7 total protein 8.3. Troponin 0.145. Lactic acid 2.5. EKG atrial fibrillation with incomplete right bundle branch block at rate of 86. Chest x-ray reveals reaccumulation of right basilar pleural effusion since prior study. Underlying atelectasis and/or infiltrate difficult to exclude. Patient was admitted to the Medr floor and consult in place with pulmonary medicine and cardiology. Repeat EKG this morning revealed multi-focal atrial tachycardia. 06/25: Chest ultrasound revealed right pleural effusion smaller than was noted on June 13 and very minimal left pleural effusion. Patient is afebrile, heart rate 60, blood pressure 114/56, pulse ox 91% on 3 L nasal cannula. Patient is normally on O2 at 2 L nasal cannula. Patient does not have a nebulizer at home. Repeat lab work reveals sodium 136, potassium 4.2, chloride 97, CO2 31, BUN 25, creatinine 0.63. Blood sugar 123. TSH less than 0.015, free T4 3 0.88. Repeat troponin 0.126 and 0.113. Echocardiogram reveals EF of 30-35%, moderate concentric left ventricle hypertrophy, severe aortic stenosis, moderate mitral regurgitation, mild tricuspid regurgitation, mild pulmonary hypertension. Cardiology was transitioned verapamil to metoprolol and may start JERI inhibitor depending on patient's blood pressure. Patient has been seen by pulmonary medicine. Patient continues to complain of shortness of breath with minimal activity. Objective - Vital Signs Vital signs: Vital Signs Temp 98.3 F 06/26/19 05:00 Pulse 88 06/26/19 05:00 Resp 17 06/26/19 05:00 BP 101/68 06/26/19 05:00 Pulse Ox 92 L 06/26/19 05:00 Intake & Output 06/25/19 06/26/19 06/26/19 18:59 06:59 18:59 Other: Voiding Method Toilet # Voids 2 - Exam Review of Systems Constitutional: Reports fatigue, Denies chills, Denies fever, Denies malaise, Denies poor appetite Eyes: denies blurred vision, denies pain Ears, nose, mouth and throat: Denies dysphagia, Denies headache, Denies nasal congestion, Denies nasal discharge, Denies sore throat, Denies vertigo Cardiovascular: Reports decreased exercise tolerance, Reports dyspnea on exerti on, Denies chest pain, Denies edema, reports leg edema, Denies lightheadedness, reports shortness of breath, Denies syncope Respiratory: Denies cough, Denies cough with sputum, reports dyspnea, Denies excessive sputum, Denies hemoptysis, Denies home oxygen, Denies respiratory infections, Denies wheezing Gastrointestinal: Denies abdominal pain, Denies diarrhea, Denies nausea, Denies vomiting Genitourinary: Denies dysuria, Denies urinary retention Musculoskeletal: Reports muscle weakness, Denies myalgias Integumentary: Denies pruritus, Denies rash, Denies wounds Neurological: Denies change in mentation, Denies change in speech, reports generalized weakness and fatigue Psychiatric: Denies anxiety, Denies depression Endocrine: Denies fatigue, Denies weight change Physical examination Gen: This is a 74-year-old male. Patient sitting in chair and appears to be comfortable. No respiratory distress is noted. HEENT: Head is atraumatic, normocephalic. Pupil round. Prosthesis left eye. Sclerae is anicteric. NECK: Supple. No JVD. No lymphadenopathy. No thyromegaly. LUNGS: Diminished to the right base, no egophony. No wheezes or rhonchi. No intercostal retractions. HEART: Irregular rate and rhythm. No murmur. ABDOMEN: Soft. Bowel sounds are present. No masses. No tenderness. EXTREMITIES: 1+ pedal edema. No calf tenderness. Dorsalis pedis palpable bilaterally. NEUROLOGICAL: Patient is awake, alert and oriented x3. Cranial nerves 2 through 12 are grossly intact. - Labs CBC & Chem 7: 06/24/19 16:49 06/26/19 06:39 Labs: Abnormal Lab Results - Last 24 Hours (Table) 06/25/19 06/26/19 Range/Units 05:41 06:39 Sodium 136 L (137-145) mmol/L Chloride 97 L (98-107) mmol/L Carbon Dioxide 31 H (22-30) mmol/L BUN 25 H (9-20) mg/dL Creatinine 0.63 L (0.66-1.25) mg/dL Glucose 123 H (74-99) mg/dL TSH <0.015 L (0.465-4.680) mIU/L Free T4 3.88 H (0.78-2.19) ng/dL Assessment and Plan Plan: 1. Acute on chronic hypoxic respiratory failure secondary to recurrent right pleural effusion with metastatic melanoma progression and moderate to severe aortic stenosis contributing to symptoms. Patient admitted to the MedSur floor, consult with pulmonary medicine. Lasix 40 mg IV daily transition to oral. Cardiology consult appreciated. 2. 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 3. New onset atrial fibrillation, paroxysmal atrial fibrillation, status post conversion to multifocal atrial tachycardia. Cardiology consult appreciated. Continue Lopressor 25 mg twice daily. No plan for anticoagulation. 4. Valvular heart disease with moderate to severe aortic stenosis, moderate mitral regurgitation. 5. Chronic hypoxic respiratory failure on home O2 at 2 L. 6. Osteoarthritis, generalized, stable. 7. Remote history of tobacco use and quit in 1992. 8. Daily alcohol use. 9. GERD and GI prophylaxis. Protonix. 10. DVT prophylaxis. Heparin subcu. Discharge plan: Home with [facility]. Impression and plan of care have been directed as dictated by the signing physician. Renae Weber nurse practitioner acting as scribe for signing gabo [email or web address].
--- NOTE | 2019-06-26 12:31 | P.PN ---
Subjective Progress Note Date: 06/26/19 Principal diagnosis: Shortness of breath, chronic recurrent right pleural effusion This is a very pleasant 74-year-old gentleman who follows with Dr. Ball as his primary care provider. He has a history of osteoarthritis with previous orthopedic surgeries, alcohol use of approximate 3 beers per day, remote history of chronic tobacco dependence for approximate 40 years but did quit in 1992. 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 No other treatment was indicated at that time. He had been following with Dr. Romero for surveillance. Computed tomography scan of the chest abdomen and pelvis in December 2018 revealed multiple bilateral lung nodules suspicious for metastasis. He has been r eceiving chemotherapy/immunotherapy which was recently downgraded. He had been seen by our group back in April 2019 with with recurrent right-sided pleural effusions.He had undergone thoracentesis of the right chest positive for metastatic myeloma. His last thoracentesis was performed in the outpatient setting by interventional radiology on 06/14/2019 with 2.1 L removed. He presented here to the emergency room yesterday with complaints of increasing shortness of breath, fatigue and weakness. Chest x-ray does show recurrent right-sided pleural effusion with atelectasis. He is seen today in consultation on the regular medical floor. He is currently sitting up in a chair at the bedside. Awake and alert in no acute distress. He is dyspneic with conversation and minimal exertion. He is quite fatigued still. He is maintaining O2 saturations in the 90s on 2 L/m per nasal cannula. He is afebrile. Hemodynamically stable. White count 6.3. Hemoglobin 12.2. Platelet count 247. INR 1.2. Sodium 136. Potassium 4.4. Creatinine 0.71. Initial lactic 2.5. Currently 1.9. Troponin 0.145, 0.126, 0.113. ProBNP 7160. TSH less than 0.015. Free T4 3 0.88. The patient is seen today in follow-up 06/26/2019 on the regular medical floor. He is awake and alert in no acute distress. He sitting up in a chair at the bedside. Feeling a bit stronger today compared to yesterday. A bit less short of breath. Maintaining O2 saturations in the 90s on 2 L/m per nasal cannula. He's been afebrile. Hemodynamically stable. Sodium 136. Potassium 4.2. Creatinine 0.63. Ultrasound of the right chest revealed a pocket of only 2.6 cm. No plans for thoracentesis. He is continued on Symbicort, oral diuretics. Objective - Vital Signs Vital signs: Vital Signs Temp 98.3 F 06/26/19 05:00 Pulse 88 06/26/19 08:00 Resp 17 06/26/19 08:00 BP 101/68 06/26/19 05:00 Pulse Ox 92 L 06/26/19 05:00 Intake & Output 06/25/19 06/26/19 06/26/19 18:59 06:59 18:59 Weight 83.7 kg Other: Voiding Method Toilet Toilet # Voids 2 - Exam GENERAL EXAM: Alert, active, pleasant 74-year-old gentleman, on 2 L nasal cannula, comfortable in no apparent distress. HEAD: Normocephalic. EYES: History of left eye enucleation with prosthesis NOSE: Clear with pink turbinates. THROAT: No erythema or exudates. NECK: No masses, no JVD. CHEST: No chest wall deformity. LUNGS: Diminished in the right mid and lower lung, crackles. CVS: S1 and S2 normal with positive audible murmur, regular rhythm. ABDOMEN: No hepatosplenomegaly, normal bowel sounds, no guarding or rigidity. SPINE: No scoliosis or deformity SKIN: No rashes CENTRAL NERVOUS SYSTEM: No focal deficits, tone is normal in all 4 extremities. EXTREMITIES: There is 1+ peripheral edema. No clubbing, no cyanosis. Peripheral pulses are intact. - Labs CBC & Chem 7: 06/24/19 16:49 06/26/19 06:39 Labs: Abnormal Lab Results - Last 24 Hours (Table) 06/26/19 Range/Units 06:39 Sodium 136 L (137-145) mmol/L Chloride 97 L (98-107) mmol/L Carbon Dioxide 31 H (22-30) mmol/L BUN 25 H (9-20) mg/dL Creatinine 0.63 L (0.66-1.25) mg/dL Glucose 123 H (74-99) mg/dL Assessment and Plan Assessment: 1 Dyspnea on exertion secondary recurrent right-sided pleural effusions secondary to extensive metastatic disease progression compared to December 2018 with a malignant right pleural effusion, development of a neoplastic pleural rind right mid and lower lung, numerous new and enlarging pulmonary nodules, extensive neoplastic involvement throughout the right middle lobe, and new AP window and prevascular space lymphadenopathy. The right middle lobe is either entirely involved with tumor or opacified atelectasis. The patient has undergone thoracentesis in April 2019 and again on 06/14/2019. The fluid is positive for metastatic melanoma. 2 Melanoma of the left eye status post enucleation in August 2018 at the [facility] in [place], no chemotherapy or radiation 3 Multiple bilateral pulmonary nodules noted in December 2018, the largest of w davidh measuring 1 cm 4 Acute exacerbation of systolic congestive heart failure with moderate to romel re impaired left ventricular systolic function with ejection fraction 30-35%. 5 Moderate aortic stenosis and severely calcified mitral valve and moderate mitral regurgitation 6 Chronic tobacco dependence of nearly 50 years however quit in 1992 7 Osteoarthritis with multiple orthopedic surgery 8 Alcohol use, 3 beers daily 9 Troponin leak Plan: The patient was seen and evaluated by Dr. Marybeth Bullard from the pulmonary standpoint Ultrasound reviewed, no plans for thoracentesis this admission We'll continue to follow and make further recommendations based on his clinical status Home once cleared by medicine I, the cosigning physician, performed a history & physical examination of the patient. Lungs sounds with crackles, diminished in the right lung. Maintaining good O2 saturations in the 90s on 2 L/m per nasal cannula. I discussed the assessment and plan of care with my nurse practitioner, Becky Hwang. I attest to the above note as dictated by her.
--- NOTE | 2019-06-26 13:00 | P.PN ---
Subjective HISTORY OF PRESENTING ILLNESS This is a pleasant 74-year-old male past medical history significant for melanoma, osteoarthritis and daily alcohol use. He does not follow with a discharge coordinator for any reason. He is seen and examined sitting up in the chair in no acute distress. He continues to complain of persistent shortness of breath. Ultrasound of the chest was performed yesterday revealing a pocket is 2.6 cm of his right pleural effusion. Echocardiogram revealed impaired LV systolic function with ejection fraction 30-35% with moderate aortic stenosis. Verapamil was discontinued given the cardiomyopathy and Lopressor was initiated. Telemetry tracings reviewed and he is currently in atrial fibrillation with controlled ventricular rates. Laboratory data reviewed, sodium 136, potassium 4.2, creatinine 0.63, TSH less than 0.15 with a free T4 of 3.88, troponin 0.145, 0.126 and 0.113. Blood pressure 91/47 heart rate 73 afebrile maintaining oxygen saturation on nasal cannula. PHYSICAL EXAMINATION CONSTITUTIONAL: Mild respiratory distress with conversation. HEENT: Head is normocephalic. Pupils are equal, round. Sclerae anicteric. Mucous membranes of the mouth are moist. No JVD. No carotid bruit. CHEST EXAMINATION: Lungs are clear to auscultation. No chest wall tenderness is noted on palpation or with deep breathing. Diminished bilaterally right greater than left. HEART EXAMINATION: Irregular rate and rhythm. S1, S2 heard. Systolic ejection murmur at the base, no gallops or rub. Distant heart sounds. EXTREMITIES: 2+ peripheral pulses, bilateral lower extremity pitting 1+ pitting edema and no calf tenderness. ASSESSMENT Paroxysmal atrial fibrillation, spontaneously converted to MAT on repeat EKG today. Back in a-fib today with controlled rates Multi-focal atrial tachycardia Recurrent pleural effusion s/p recent thoracentesis Acute hypoxic respiratory failure Metastatic melanoma with multiple pulmonary nodules Cardiomyopathy, unknown if ischemic or non-ischemic at this time. Aortic stenosis PLAN Transitioned to oral diuretics, Lasix 40 mg by mouth daily. Blood pressure cannot tolerate JERI or ARB at this time. Given his recent diagnosis of metastatic lung cancer and the need for thoracentesis, we will hold on termite treater anti-coagulation at this time. Nurse Practitioner note has been reviewed, I agree with a documented findings and plan of care. Patient was seen and examined. Objective - Vital Signs Vital signs: Vital Signs Temp 97.9 F 06/26/19 11:50 Pulse 95 04/04/20 11:50 Resp 21 06/26/19 11:50 BP 91/47 06/26/19 11:50 Pulse Ox 92 L 06/26/19 05:00 Intake & Output 06/25/19 06/26/19 06/26/19 18:59 06:59 18:59 Weight 83.7 kg Other: Voiding Method Toilet Toilet # Voids 2 - Labs CBC & Chem 7: 06/24/19 16:49 06/26/19 06:39 Labs: Abnormal Lab Results - Last 24 Hours (Table) 06/26/19 Range/Units 06:39 Sodium 136 L (137-145) mmol/L Chloride 97 L (98-107) mmol/L Carbon Dioxide 31 H (22-30) mmol/L BUN 25 H (9-20) mg/dL Creatinine 0.63 L (0.66-1.25) mg/dL Glucose 123 H (74-99) mg/dL
[2019-06-26] MEDS: MIRTAZAPINE 15 MG TAB PO SCH (17:19)
[2019-06-26] MEDS: SYMBICORT 160-4.5 MCG INHALER INHALATION SCH (20:42)
[2019-06-27 06:58] LABS: African American GFR (CKD) >90 (>60 ml/min/1.73 sqM); Anion Gap 9 mmol/L; Blood Urea Nitrogen 23 mg/dL (9-20); Carbon Dioxide 28 mmol/L (22-30); Chloride 97 mmol/L (98-107); Glucose 108 mg/dL (74-99); Non-African American GFR(CKD) >90 (>60 ml/min/1.73 sqM); Potassium 4.2 mmol/L (3.5-5.1); Sodium 134 mmol/L (137-145)
[2019-06-27] MEDS: SYMBICORT 160-4.5 MCG INHALER INHALATION SCH ×2 (07:55→19:59)
[2019-06-27] MEDS: PANTOPRAZOLE 40 MG TABLET PO SCH (09:59)
[2019-06-27] MEDS: FUROSEMIDE 40 MG TAB PO SCH (09:59)
[2019-06-27] MEDS: MULTIVITAMINS, THERA 1 EACH TAB PO SCH (09:59)
[2019-06-27] MEDS: METOPROLOL TARTRATE 25 MG TAB PO SCH ×2 (09:59→20:52)
[2019-06-27] MEDS: METOCLOPRAMIDE 10 MG TAB PO SCH ×4 (10:03→20:52)
--- NOTE | 2019-06-27 10:58 | P.PN ---
Subjective Progress Note Date: 06/27/19 This is a 74-year-old male patient of Dr. Ball and Dr. Melgar with past medical history of melanoma of the left thigh status post prosthesis, osteoarthritis, remote history of tobacco use, alcohol use. In April patient was admitted after having abnormal abdominal ultrasound. CTA of the chest was negative for pulmonary embolism. There was extensive interval metastatic disease progression with malignant moderate to large right pleural effusion, development of neoplastic pleural right mid and lower lung, numerous new and enlarging pulmonary nodules, extensive neoplastic involvement throughout the right middle lobe and new AP window and prevascular space lymphadenopathy. Right middle lobe is either entirely involved with tumor or opacified. CT of the abdomen and pelvis with contrast revealed no abdominalopelvic neoplastic disease. Ultrasound of the chest was marked for right-sided 18.8 cm pleural effusion and he underwent thoracentesis with Dr. Green with removal of 2 L of f luid. Pathology revealed rare cells consistent with metastatic melanoma in the background of chronic pleuritis. On June 13, patient underwent ultrasound- guided thoracentesis with Dr. Rush as an outpatient with removal of 2.1 L of serosanguineous fluid. Patient is complaining of shortness of breath with minimal activity. He also complains of increased edema to lower extremity. Patient has been on chemotherapy/immunotherapy which has been downgraded recently. Patient came into [facility] emergency center for evaluation. Initial pulse ox 85-88%, afebrile, heart rate in the 80s and 90s, blood pressure 116/71. WBC 6.3, hemoglobin 12.2, platelet count 247. Sodium 136, potassium 4.4, chloride 99, CO2 27, BUN 29 and creatinine 0.71, blood sugar 133. Total bilirubin 1.2, AST 47, ALT 37, alkaline phosphatase 132. Albumin 3.7 total protein 8.3. Troponin 0.145. Lactic acid 2.5. EKG atrial fibrillation with incomplete right bundle branch block at rate of 86. Chest x-ray reveals reaccumulation of right basilar pleural effusion since prior study. Underlying atelectasis and/or infiltrate difficult to exclude. Patient was admitted to the [facility] floor and consult in place with pulmonary medicine and cardiology. Repeat EKG this morning revealed multi-focal atrial tachycardia. 06/25: Chest ultrasound revealed right pleural effusion smaller than was noted on June 13 and very minimal left pleural effusion. Patient is afebrile, heart rate 60, blood pressure 114/56, pulse ox 91% on 3 L nasal cannula. Patient is normally on O2 at 2 L nasal cannula. Patient does not have a nebulizer at home. Repeat lab work reveals sodium 136, potassium 4.2, chloride 97, CO2 31, BUN 25, creatinine 0.63. Blood sugar 123. TSH less than 0.015, free T4 3 0.88. Repeat troponin 0.126 and 0.113. Echocardiogram reveals EF of 30-35%, moderate concentric left ventricle hypertrophy, severe aortic stenosis, moderate mitral regurgitation, mild tricuspid regurgitation, mild pulmonary hypertension. Cardiology was transitioned verapamil to metoprolol and may start JERI inhibitor depending on patient's blood pressure. Patient has been seen by pulmonary medicine. Patient continues to complain of shortness of breath with minimal activity. 06/26: No new complaints. Patient continues to have shortness of breath with activity. He has been afebrile, heart rate 81, blood pressure 111/73, pulse ox 94% on 2 L nasal cannula. Patient does have home O2 at 2 L. Sodium 134, potas sium 4.2, chloride 97, CO2 28, BUN 23, creatinine 0.58, blood sugar 108. Patient is cleared from pulmonary for discharge home. Cardiology is now planning for a sore ARB due to low blood pressure and Lasix to continue. No anticoagulation at this time. Dr. Zelaya discussed condition with the patient's daughter via phone. She is requesting a wheelchair, hospital bed and portable oxygen tank which will need to be arranged for tomorrow. Prescription left on the patient's chart. Patient will stay here overnight and discharge home tomorrow once DME is arranged. Patient does have thoracentesis and CAT scan that revealed as an outpatient which will need to be delayed. Objective - Vital Signs Vital signs: Vital Signs Temp 97.8 F 06/27/19 04:47 Pulse 81 06/27/19 04:47 Resp 18 06/27/19 04:47 BP 111/73 06/27/19 04:47 Pulse Ox 94 L 06/27/19 04:47 Intake & Output 06/26/19 06/27/19 06/27/19 18:59 06:59 18:59 Intake Total 900 Balance 900 Weight 83.7 kg 83.6 kg Intake: Oral 900 Other: Voiding Method Toilet Toilet # Voids 2 2 # Bowel Movements 1 - Exam Review of Systems Constitutional: Reports fatigue, Denies chills, Denies fever, Denies malaise, Denies poor appetite Ears, nose, mouth and throat: Denies dysphagia, Denies headache, Denies nasal congestion, Denies nasal discharge, Denies sore throat, Denies vertigo Cardiovascular: Reports decreased exercise tolerance, Reports dyspnea on exertion, Denies chest pain, Denies edema, reports leg edema, Denies lightheadedness, reports shortness of breath, Denies syncope Respiratory: Denies cough, Denies cough with sputum, reports dyspnea, Denies excessive sputum, Denies hemoptysis, Denies home oxygen, Denies respiratory infections, Denies wheezing Gastrointestinal: Denies abdominal pain, Denies diarrhea, Denies nausea, Denies vomiting Genitourinary: Denies dysuria, Denies urinary retention Musculoskeletal: Reports muscle weakness, Denies myalgias Integumentary: Denies pruritus, Denies rash, Denies wounds Neurological: Denies change in mentation, Denies change in speech, reports generalized weakness and fatigue Psychiatric: Denies anxiety, Denies depression Endocrine: Denies fatigue, Denies weight change Physical examination Gen: This is a 74-year-old male. Patient sitting in chair and appears to be comfortable. No respiratory distress is noted at rest. HEENT: Head is atraumatic, normocephalic. Pupil round. Prosthesis left eye. Sclerae is anicteric. NECK: Supple. No JVD. No lymphadenopathy. No thyromegaly. LUNGS: Diminished to the right base, no egophony. No wheezes or rhonchi. No intercostal retractions. HEART: Irregular rate and rhythm. No murmur. ABDOMEN: Soft. Bowel sounds are present. No masses. No tenderness. EXTREMITIES: 1+ pedal edema. No calf tenderness. Dorsalis pedis palpable bilaterally. NEUROLOGICAL: Patient is awake, alert and oriented x3. Cranial nerves 2 through 12 are grossly intact. - Labs CBC & Chem 7: 06/24/19 16:49 06/27/19 06:02 Labs: Abnormal Lab Results - Last 24 Hours (Table) 06/27/19 Range/Units 06:02 Sodium 134 L (137-145) mmol/L Chloride 97 L (98-107) mmol/L BUN 23 H (9-20) mg/dL Creatinine 0.58 L (0.66-1.25) mg/dL Glucose 108 H (74-99) mg/dL Assessment and Plan Plan: 1. Acute on chronic hypoxic respiratory failure secondary to recurrent right pleural effusion with metastatic melanoma progression and moderate to severe aortic stenosis contributing to symptoms. Patient admitted to the [facility] floor, consult with pulmonary medicine. Lasix 40 mg po daily. Cardiology consult appreciated. 2. 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 3. New onset atrial fibrillation, paroxysmal atrial fibrillation, status post conversion to multifocal atrial tachycardia. Cardiology consult appreciated. Continue Lopressor 25 mg twice daily. No plan for anticoagulation. 4. Valvular heart disease with moderate to severe aortic stenosis, moderate mitral regurgitation. 5. Chronic hypoxic respiratory failure on home O2 at 2 L. 6. Osteoarthritis, generalized, stable. 7. Remote history of tobacco use and quit in 1992. 8. Daily alcohol use. 9. GERD and GI prophylaxis. Protonix. 10. DVT prophylaxis. Heparin subcu. 11. Generalized debility secondary to metastatic melanoma progression. Patient is requiring hospital bed to keep head of the bed elevated at all times and wheelchair. Discharge plan: Home with [facility] on Friday once DME has been arranged.. Impression and plan of care have been directed as dictated by the signing physician. Renae Weber nurse practitioner acting as scribe for signing physician.
[2019-06-27] MEDS: MIRTAZAPINE 15 MG TAB PO SCH (17:04)
[2019-06-28 05:31] VITALS: BP 119/82; PULSE 113; TEMP 97.8
[2019-06-28 06:12] VITALS: RESP 20
[2019-06-28] MEDS: FUROSEMIDE 40 MG TAB PO SCH (07:45)
[2019-06-28] MEDS: METOPROLOL TARTRATE 25 MG TAB PO SCH (07:45)
[2019-06-28] MEDS: MULTIVITAMINS, THERA 1 EACH TAB PO SCH (07:46)
[2019-06-28] MEDS: PANTOPRAZOLE 40 MG TABLET PO SCH (07:46)
[2019-06-28] MEDS: METOCLOPRAMIDE 10 MG TAB PO SCH ×2 (07:46→12:13)
[2019-06-28] MEDS: SYMBICORT 160-4.5 MCG INHALER INHALATION SCH (08:12)
--- NOTE | 2019-06-28 08:48 | P.DS ---
Providers Date of admission: 06/24/19 17:57 Expected date of discharge: 06/28/19 Attending physician: Soy Ball Consults: 06/24/19 18:08 Consult Physician Stat Consulting Provider: Chai Rueda Consult Reason/Comments: Right-sided pleural effusion Do you want consulting provider notified?: Yes Consult Physician Stat Consulting Provider: Gold Galeas Consult Reason/Comments: new onset a fib Do you want consulting provider notified?: Yes Primary care physician: Soy Ball [facility] Hospital Course: This is a 74-year-old male patient of Dr. Ball and Dr. Melgar with past medical history of melanoma of the left thigh status post prosthesis, osteoarthritis, remote history of tobacco use, alcohol use. In April patient was admitted after having abnormal abdominal ultrasound. CTA of the chest was negative for pulmonary embolism. There was extensive interval metastatic disease progression with malignant moderate to large right pleural effusion, development of neoplastic pleural right mid and lower lung, numerous new and enlarging pulmonary nodules, extensive neoplastic involvement throughout the right middle lobe and new AP window and prevascular space lymphadenopathy. Right middle lobe is either entirely involved with tumor or opacified. CT of the abdomen and pelvis with contrast revealed no abdominalopelvic neoplastic disease. Ultrasound of the chest was marked for right-sided 18.8 cm pleural effusion and he underwent thoracentesis with Dr. Green with removal of 2 L of fluid. Pathology revealed rare cells consistent with metastatic melanoma in the background of chronic pleuritis. On June 13, patient underwent ultrasound- guided thoracentesis with Dr. Rush as an outpatient with removal of 2.1 L of serosanguineous fluid. Patient is complaining of shortness of breath with minimal activity. He also complains of increased edema to lower extremity. Patient has been on chemotherapy/immunotherapy which has been downgraded recently. Patient came into [facility] emergency center for evaluation. Initial pulse ox 85-88%, afebrile, heart rate in the 80s and 90s, blood pressure 116/71. WBC 6.3, hemoglobin 12.2, platelet count 247. Sodium 136, potassium 4.4, chloride 99, CO2 27, BUN 29 and creatinine 0.71, blood sugar 133. Total bilirubin 1.2, AST 47, ALT 37, alkaline phosphatase 132. Albumin 3.7 total protein 8.3. Troponin 0.145. Lactic acid 2.5. EKG atrial fibrillation with incomplete right bundle branch block at rate of 86. Chest x-ray reveals reaccumulation of right basilar pleural effusion since prior study. Underlying atelectasis and/or infiltrate difficult to exclude. Patient was admitted to the [facility] floor and consult in place with pulmonary medicine and cardiology. Repeat EKG this morning revealed multi-focal atrial tachycardia. 06/25: Chest ultrasound revealed right pleural effusion smaller than was noted on June 13 and very minimal left pleural effusion. Patient is afebrile, heart rate 60, blood pressure 114/56, pulse ox 91% on 3 L nasal cannula. Patient is normally on O2 at 2 L nasal cannula. Patient does not have a nebulizer at home. Repeat lab work reveals sodium 136, potassium 4.2, chloride 97, CO2 31, BUN 25, creatinine 0.63. Blood sugar 123. TSH less than 0.015, free T4 3 0.88. Repeat troponin 0.126 and 0.113. Echocardiogram reveals EF of 30-35%, moderate ced ntric left ventricle hypertrophy, severe aortic stenosis, moderate mitral regurgitation, mild tricuspid regurgitation, mild pulmonary hypertension. Cardiology was transitioned verapamil to metoprolol and may start JERI inhibitor depending on patient's blood pressure. Patient has been seen by pulmonary medicine. Patient continues to complain of shortness of breath with minimal activity. 06/26: No new complaints. Patient continues to have shortness of breath with activity. He has been afebrile, heart rate 81, blood pressure 111/73, pulse ox 94% on 2 L nasal cannula. Patient does have home O2 at 2 L. Sodium 134, potassium 4.2, chloride 97, CO2 28, BUN 23, creatinine 0.58, blood sugar 108. Patient is cleared from pulmonary for discharge home. Cardiology is now planning for a sore ARB due to low blood pressure and Lasix to continue. No anticoagulation at this time. Dr. Zelaya discussed condition with the patient's daughter via phone. She is requesting a wheelchair, hospital bed and portable oxygen tank which will need to be arranged for tomorrow. Prescription left on the patient's chart. Patient will stay here overnight and discharge home tomorrow once DME is arranged. Patient does have thoracentesis and CAT scan that revealed as an outpatient which will need to be delayed. 06/27: Patient has been afebrile, heart rate 113, blood pressure 119/82, pulse ox 92% on 2 L nasal cannula. Patient was cleared for discharge by pulmonary medicine yesterday. As noted, we are waiting for DME to be set up at home. physical security manager is working on this this morning. Daughter is risk requesting a new prescription for omeprazole. Patient denies any new complaints is an anxious to be discharged home. Patient will be discharged home today once all arrangements are completed. Discharge diagnoses: 1. Acute on chronic hypoxic respiratory failure secondary to recurrent right pleural effusion with metastatic melanoma progression and moderate to severe aortic stenosis contributing to symptoms. 2. 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 3. New onset atrial fibrillation, paroxysmal atrial fibrillation, status post conversion to multifocal atrial tachycardia. 4. Valvular heart disease with moderate to severe aortic stenosis, moderate mitral regurgitation. 5. Chronic hypoxic respiratory failure on home O2 at 2 L. 6. Osteoarthritis, generalized, stable. 7. Remote history of tobacco use and quit in 1992. 8. Daily alcohol use. 9. GERD. 10. Cardiomyopathy, unknown if ischemic or nonischemic. 11. Generalized debility secondary to metastatic melanoma progression. Patient is requiring hospital bed to keep head of the bed elevated at 30 at all times and wheelchair to assist with ADLs. 12. New diagnosis of hyperthyroidism. Discharge plan: Home with [facility]. Impression and plan of care have been directed as dictated by the signing physician. Renae Weber nurse practitioner acting as scribe for signing physician. Patient Condition at Discharge: Good Plan - Discharge Summary New Discharge Prescriptions: New Furosemide [Lasix] 40 mg PO DAILY #30 tab Metoprolol Tartrate [Lopressor] 25 mg PO BID #60 tab Budesonide-Formot 160-4.5 Mcg [Symbicort 160-4.5 Mcg Inhaler] 2 puff INHALATION RT-BID #1 inhaler Methimazole [Tapazole] 5 mg PO BID #60 tablet Omeprazole [PriLOSEC] 40 mg PO DAILY #30 cap Continue Multivitamins, Thera [Multivitamin (formulary)] 1 tab PO DAILY Ondansetron [Zofran] 4 mg PO TID PRN PRN Reason: Nausea Metoclopramide [Reglan] 10 mg PO ACHS Mirtazapine 7.5 mg PO W/SUPPER Discontinued Omeprazole 40 mg PO DAILY Discharge Medication List Multivitamins, Thera [Multivitamin (formulary)] 1 tab PO DAILY 08/28/15 [History] Ondansetron [Zofran] 4 mg PO TID PRN 04/29/19 [History] Metoclopramide [Reglan] 10 mg PO ACHS 06/24/19 [History] Mirtazapine 7.5 mg PO W/SUPPER 06/24/19 [History] Budesonide-Formot 160-4.5 Mcg [Symbicort 160-4.5 Mcg Inhaler] 2 puff INHALATION RT-BID #1 inhaler 06/27/19 [Rx] Furosemide [Lasix] 40 mg PO DAILY #30 tab 06/27/19 [Rx] Metoprolol Tartrate [Lopressor] 25 mg PO BID #60 tab 06/27/19 [Rx] Methimazole [Tapazole] 5 mg PO BID #60 tablet 06/28/19 [Rx] Omeprazole [PriLOSEC] 40 mg PO DAILY #30 cap 06/28/19 [Rx] Follow up Appointment(s)/Referral(s): Nicole Green MD [STAFF PHYSICIAN] - 07/28/19 10:30 am () Soy Ball MD [Primary Care Provider] - 1 Week (office will call patient with appointment date and time ) [facility], [NON-STAFF] - 1 Week Bernard Melgar MD [STAFF PHYSICIAN] - 07/06/19 10:45 am (office not answering- Please call to set up appointment) Patient Instructions/Handouts: Metoprolol (By mouth), Furosemide (By mouth), Budesonide/Formoterol (By breathing), Pleural Effusion (DC) Discharge Disposition: HOME WITH HOME HEALTH SERVICES
[2019-06-28] MEDS ORDERED: METHIMAZOLE 5 MG TAB PO SCH (11:30)
--- NOTE | 2019-06-28 12:56 | P.PN ---
Subjective Progress Note Date: 06/28/19 Principal diagnosis: Shortness of breath, chronic recurrent right pleural effusion This is a very pleasant 74-year-old gentleman who follows with Dr. Ball as his primary care provider. He has a history of osteoarthritis with previous orthopedic surgeries, alcohol use of approximate 3 beers per day, remote history of chronic tobacco dependence for approximate 40 years but did quit in 1992. 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 No other treatment was indicated at that time. He had been following with Dr. Romero for surveillance. Computed tomography scan of the chest abdomen and pelvis in December 2018 revealed multiple bilateral lung nodules suspicious for metastasis. He has been r eceiving chemotherapy/immunotherapy which was recently downgraded. He had been seen by our group back in April 2019 with with recurrent right-sided pleural effusions.He had undergone thoracentesis of the right chest positive for metastatic myeloma. His last thoracentesis was performed in the outpatient setting by interventional radiology on 06/14/2019 with 2.1 L removed. He presented here to the emergency room yesterday with complaints of increasing shortness of breath, fatigue and weakness. Chest x-ray does show recurrent right-sided pleural effusion with atelectasis. He is seen today in consultation on the regular medical floor. He is currently sitting up in a chair at the bedside. Awake and alert in no acute distress. He is dyspneic with conversation and minimal exertion. He is quite fatigued still. He is maintaining O2 saturations in the 90s on 2 L/m per nasal cannula. He is afebrile. Hemodynamically stable. White count 6.3. Hemoglobin 12.2. Platelet count 247. INR 1.2. Sodium 136. Potassium 4.4. Creatinine 0.71. Initial lactic 2.5. Currently 1.9. Troponin 0.145, 0.126, 0.113. ProBNP 7160. TSH less than 0.015. Free T4 3 0.88. The patient is seen today in follow-up 06/26/2019 on the regular medical floor. He is awake and alert in no acute distress. He sitting up in a chair at the bedside. Feeling a bit stronger today compared to yesterday. A bit less short of breath. Maintaining O2 saturations in the 90s on 2 L/m per nasal cannula. He's been afebrile. Hemodynamically stable. Sodium 136. Potassium 4.2. Creatinine 0.63. Ultrasound of the right chest revealed a pocket of only 2.6 cm. No plans for thoracentesis. He is continued on Symbicort, oral diuretics. The patient is seen today 06/28/2019 in follow-up on the regular medical floor. He is sitting up in a chair at the bedside. Awake and alert in no acute distress. Denies any worsening shortness of breath, cough or congestion. He is anxious to go home. Objective - Vital Signs Vital signs: Vital Signs Temp 97.8 F 06/28/19 05:00 Pulse 113 H 06/28/19 05:00 Resp 20 06/28/19 06:11 BP 119/82 06/28/19 05:00 Pulse Ox 92 L 06/28/19 06:11 Intake & Output 06/27/19 06/28/19 06/28/19 18:59 06:59 18:59 Intake Total 290 Balance 290 Weight 82.7 kg Intake: Oral 290 Other: Voiding Method Toilet Toilet # Voids 1 - Exam GENERAL EXAM: Alert, active, pleasant 74-year-old gentleman, on 2 L nasal cannula, comfortable in no apparent distress. HEAD: Normocephalic. EYES: History of left eye enucleation with prosthesis NOSE: Clear with pink turbinates. THROAT: No erythema or exudates. NECK: No masses, no JVD. CHEST: No chest wall deformity. LUNGS: Diminished in the right mid and lower lung, crackles. CVS: S1 and S2 normal with positive audible murmur, regular rhythm. ABDOMEN: No hepatosplenomegaly, normal bowel sounds, no guarding or rigidity. SPINE: No scoliosis or deformity SKIN: No rashes CENTRAL NERVOUS SYSTEM: No focal deficits, tone is normal in all 4 extremities. EXTREMITIES: There is 1+ peripheral edema. No clubbing, no cyanosis. Peripheral pulses are intact. - Labs CBC & Chem 7: 06/24/19 16:49 06/27/19 06:02 Assessment and Plan Assessment: 1 Dyspnea on exertion secondary recurrent right-sided pleural effusions secondary to extensive metastatic disease progression compared to December 2018 with a malignant right pleural effusion, development of a neoplastic pleural rind right mid and lower lung, numerous new and enlarging pulmonary nodules, extensive neoplastic involvement throughout the right middle lobe, and new AP window and prevascular space lymphadenopathy. The right middle lobe is either entirely involved with tumor or opacified atelectasis. The patient has undergone thoracentesis in April 2019 and again on 06/14/2019. The fluid is positive for metastatic melanoma. 2 Melanoma of the left eye status post enucleation in August 2018 at the [facility] in [place], no chemotherapy or radiation 3 Multiple bilateral pulmonary nodules noted in December 2018, the largest of which measuring 1 cm 4 Acute exacerbation of systolic congestive heart failure with moderate to severe impaired left ventricular systolic function with ejection fraction 30- 35%. 5 Moderate aortic stenosis and severely calcified mitral valve and moderate mitral regurgitation 6 Chronic tobacco dependence of nearly 50 years however quit in 1992 7 Osteoarthritis with multiple orthopedic surgery 8 Alcohol use, 3 beers daily 9 Troponin leak Plan: The patient was seen and evaluated by Dr. Luis Enrique Bullard from the pulmonary standpoint Ultrasound reviewed, no plans for thoracentesis this admission Home once cleared by medicine I, the cosigning physician, performed a history & physical examination of the patient. Lungs sounds with crackles, diminished in the right lung. Maintaining good O2 saturations in the 90s on 2 L/m per nasal cannula. I discussed the assessment and plan of care with my nurse practitioner, Becky Hwang. I attest to the above note as dictated by her.
== END 2019-06-28 15:45 | disposition home health service (06) | DRG 180 ==
LOC: EC 16:05 → 4SSUR 17:57 → 5NMEDONC 19:00
PROVIDERS: ADMIT Internal Medicine; ATTEND Internal Medicine
DX: C78.01 Secondary malignant neoplasm of right lung (principal); I50.23 Acute on chronic systolic (congestive) heart failure; J96.21 Acute and chronic respiratory failure with hypoxia; I42.9 Cardiomyopathy, unspecified; C77.1 Secondary and unspecified malignant neoplasm of intrathoracic lymph nodes; I47.1 Supraventricular tachycardia; J91.0 Malignant pleural effusion; J98.11 Atelectasis; I27.29 Other secondary pulmonary hypertension; I48.0 Paroxysmal atrial fibrillation; M19.90 Unspecified osteoarthritis, unspecified site; K21.9 Gastro-esophageal reflux disease without esophagitis; I45.10 Unspecified right bundle-branch block; R79.89 Other specified abnormal findings of blood chemistry; I08.3 Combined rheumatic disorders of mitral, aortic and tricuspid valves; E05.90 Thyrotoxicosis, unspecified without thyrotoxic crisis or storm; Z79.899 Other long term (current) drug therapy; Z99.81 Dependence on supplemental oxygen; Z90.01 Acquired absence of eye; Z97.0 Presence of artificial eye; Z96.652 Presence of left artificial knee joint; Z98.890 Other specified postprocedural states; Z86.69 Personal history of other diseases of the nervous system and sense organs; Z87.891 Personal history of nicotine dependence; Z85.840 Personal history of malignant neoplasm of eye; Z83.3 Family history of diabetes mellitus; Z82.49 Family history of ischemic heart disease and other diseases of the circulatory system; Z84.1 Family history of disorders of kidney and ureter
CPT/HCPCS: 36415; 71046; 76604; 80048; 80053; 83605; 83735; 83880; 84439; 84443; 84484; 85025; 85610; 85730; 93005; 93306; 94640; 99285

== ENCOUNTER 2019-07-16 08:50 | Day surgery (SDC) | payer MEDICARE ==
[2019-07-16 09:38] LABS: Mean Platelet Volume 6.8; Platelet Count 328 k/uL (150-450)
[2019-07-16 09:43] LABS: INR 1.1 (<1.2); Prothrombin Time 11.6 sec (9.0-12.0)
[2019-07-16 09:55] VITALS: RESP 18; TEMP 97.6
[2019-07-16 11:13] VITALS: BP 94/56; PULSE 96
--- NOTE | 2019-07-16 11:15 | XR ---
EXAMINATION TYPE: XR chest 1V portable DATE OF EXAM: 07/16/2019 Comparison: 07/12/2019 Clinical History: 74-year-old male post right thoracentesis Findings: Residual small right effusion remains. No appreciable pneumothorax. Bilateral pulmonary nodules redem onstrated with mildly enlarged heart and lobulated pleural parenchymal thickening lateral thoracic si dewall. Impression: 1. A small right effusion remains without appreciable pneumothorax. 2. Extensive metastatic pulmonary nodules and pleural-based metastases, right greater than left redem onstrated.
--- NOTE | 2019-07-16 11:48 | US ---
EXAMINATION TYPE: US thoracentesis DATE OF EXAM: 07/16/2019 COMPARISON: Chest CT 05/31/2019, chest x-ray 07/12/2019 HISTORY: Pleural effusion. FINDINGS: Maximal barrier technique was utilized. The skin overlying a suitable pocket of fluid was localized and the overlying skin prepped and draped. Lidocaine was used for local anesthesia. Ultras ound was used with sterile technique. A 5 Tamazight catheter over guide needle was advanced into the pl eural fluid collection using ultrasound guidance the catheter advanced, needle removed. Approximatel y 2.4 liter(s) of serous fluid was removed. Catheter was withdrawn and hemostasis achieved. There i s no immediate complication. The patient discharged in stable condition without complication. IMPRESSION: STATUS POST ULTRASOUND GUIDED THORACENTESIS, POST PROCEDURE CHEST X-RAY PENDING. THIS HI OCEDURE WAS PERFORMED BY THE UNDERSIGNED.
[2019-07-16 14:12] LABS: Appearance,BF Cloudy; Color,BF Red; Nucleated Cells, Body Fluid 1000 /uL; RBC, Body Fluid 34600 /uL
[2019-07-16 14:14] LABS: Mononuclear WBC,Body Fluid 95 %; Polynuclear WBC,Body Fluid 4 %; Total Cells Counted,Body Fluid 100
[2019-07-16 15:30] LABS: Glucose, BF Source Pleural Fluid; Glucose, Body Fluid 107 mg/dL; LDH, Body Fluid Source Pleural Fluid; Total Protein, Body Fluid 4300 mg/dL
== END 2019-07-16 11:35 | disposition home or self-care (01) ==
LOC: RADPROMAIN 08:50
PROVIDERS: ATTEND Internal Medicine
DX: J90 Pleural effusion, not elsewhere classified (principal); R91.8 Other nonspecific abnormal finding of lung field
CPT/HCPCS: 32555; 36415; 71045; 82945; 83615; 84157; 85049; 85610; 87116; 87206; 89050

== ENCOUNTER → 2019-08-10 | Outpatient (CLI) | payer MEDICARE ==
[2019-08-10 12:39] LABS: Anisocytosis Slight; Basophils % (A) 1 %; Eosinophils # (A) 0.2 k/uL (0-0.7); Eosinophils % (A) 3 %; HCT 38.4 % (39.0-53.0); HGB 11.9 gm/dL (13.0-17.5); Lymphocytes # (A) 1.3 k/uL (1.0-4.8); Lymphocytes % (A) 23 %; MCH 27.7 pg (25.0-35.0); MCHC 31.1 g/dL (31.0-37.0); Mean Platelet Volume 6.9; Monocytes # (A) 0.4 k/uL (0-1.0); Monocytes % (A) 7 %; Neutrophils # (A) 3.6 k/uL (1.3-7.7); Neutrophils % (A) 64 %; Platelet Count 253 k/uL (150-450); RBC 4.31 m/uL (4.30-5.90); RDW 16.3 % (11.5-15.5); WBC 5.7 k/uL (3.8-10.6)
[2019-08-10 12:50] LABS: INR 1.1 (<1.2); Partial Thromboplastin Time 25.8 sec (22.0-30.0); Prothrombin Time 10.9 sec (9.0-12.0)
[2019-08-10 18:48] LABS: African American GFR (CKD) 95.8 (60.0-200.0); Anion Gap 6.9 mmol/L (4.00-12.00); Carbon Dioxide 33.1 mmol/L (21.6-31.8); Non-African American GFR(CKD) 82.7 (60.0-200.0); Potassium 4.4 mmol/L (3.5-5.5)
== END | disposition home or self-care (01) ==
LOC: LABWHC1 11:44
PROVIDERS: ATTEND Family Medicine
DX: Z11.59 Encounter for screening for other viral diseases (principal)
CPT/HCPCS: 36415; 80051; 82565; 82947; 84520; 85025; 85610; 85730; 87635

== ENCOUNTER 2019-08-12 07:26 | Day surgery (SDC) | payer MEDICARE ==
[2019-08-10 13:57] VITALS: BMI 24.4
[~2019-08-12 07:26] MED LIST: DEXAMETHASONE SOD PHOSPHATE 10 MG/ML 1 ML VIAL IV ONE; HYDROmorphone 0.5 MG/0.5 ML SYRINGE IVP PRN; LACTATED RINGERS 1,000 ML IV SCH; ONDANSETRON 4 MG/2 ML VIAL IVP ONE; Pre Op ABX Message 1 EACH MISC MISCELLANE ONE
[2019-08-12] MEDS ORDERED: LIDOCAINE 1% (10MG/ML) FOR IV START INTRADERMA ONE (08:05)
[2019-08-12] MEDS ORDERED: PROPOFOL 10 MG/ML 20 ML VIAL IV ONE (08:28)
[2019-08-12] MEDS ORDERED: LIDOCAINE 1% INJ 10MG/ML (20 ML MDV) ONE (08:28)
[2019-08-12] MEDS ORDERED: KETAMINE 10 MG/ML 20 ML VIAL ONE (08:28)
[2019-08-12] MEDS ORDERED: fentaNYL (PF) 50 MCG/ML 2 ML AMP ONE (08:28)
[2019-08-12] MEDS ORDERED: MIDAZOLAM 2 MG/2 ML VIAL ONE (08:28)
[2019-08-12] MEDS ORDERED: PHENYLEPHRINE-0.9% NACL SYG 1 MG/10 ML SYRINGE ONE (08:28)
[2019-08-12] MEDS ORDERED: ceFAZolin 1,000 MG VIAL IVPB ONE (08:41)
[2019-08-12 09:17] VITALS: TEMP 97
--- NOTE | 2019-08-12 09:26 | FL ---
Fluoroscopy History: Pleural catheter Radiology provided fluoroscopic time for pleural catheter placement. 3. The paper images are submitted.
--- NOTE | 2019-08-12 09:37 | XR ---
EXAMINATION TYPE: XR chest 1V portable DATE OF EXAM: 08/12/2019 HISTORY: Shortness of breath. COMPARISON: 07/16/2019 TECHNIQUE: Single view of the chest is submitted. FINDINGS: Demonstrated are scattered senescent parenchymal change. There is been placement of right basilar pleural catheter. No evidence for sizable pneumothorax at th is time. Bilateral pulmonary masses redemonstrated as well as loculated right-sided pleural effusion which has increased at the right lung base. The heart is stable. Hilar and mediastinal structures are within normal limits. Degenerative changes are seen of the dorsal spine. IMPRESSION: 1. There is been placement of right basilar pleural catheter. No evidence for sizable pneumothorax a t this time. Bilateral pulmonary masses redemonstrated as well as loculated right-sided pleural effus ion which has increased at the right lung base.
[2019-08-12] MEDS ORDERED: ACETAMINOPHEN TAB 500 MG TAB PO PRN (09:45)
--- NOTE | 2019-08-12 09:45 | P.OP ---
Date of Procedure: 08/12/19 Preoperative Diagnosis: Recurrent right pleural effusion Postoperative Diagnosis: Same Procedure(s) Performed: Right Pleurx catheter placement with fluoroscopy Implants: Pleurx catheter Anesthesia: MAC Surgeon: Pierre Pantoja Estimated Blood Loss (ml): 1 IV fluids (ml): 200 Urine output (ml): 0 Pathology: none sent Condition: stable Disposition: PACU Indications for Procedure: 74-year-old male with recurrent pleural effusion on the right side which is symptomatic. He has been tapped for over a liter on 3 separate occasions. He is currently symptomatic with a large right pleural effusion. Pleurx catheter was requested by Dr. Green. Operative Findings: Over 2-1/2 L of serous fluid was drained. This resulted in good lung reexpansion. Description of Procedure: The patient was brought to the operating room, placed supine on the operating table, and appropriately positioned. IV sedation was given and the right lower chest and upper abdomen were sterilely prepped and draped. Percussion identified area of dullness in the right posterior lateral region. The skin overlying the seventh interspace in the midaxillary line was anesthetized with 1% lidocaine. The pleural space was punctured here with a skinny needle and pleural fluid was identified. Skinny needle was replaced with an 18-gauge needle and a guidewire threaded into the right chest under fluoroscopic guidance. This entry site was then enlarged to just over a centimeter. An exit site was made in the right upper quadrant just below the costal verge with 1% lidocaine and just under a centimeter in size. Pleurx catheter was tunneled from the exit site to the entry site and the cuff was secured just under the skin. Introducer and dilator were placed over the guidewire and through the introducer sheath the Pleurx catheter was introduced into the pleural space. This was all viewed done with fluoroscopic guidance. The Pleurx catheter in place, it was connected to suction and 2-1/2 L of fluid was drained. Catheter was secured at the exit site with a 2-0 silk. The entrance site was closed with a 4-0 Vicryl suture. Skin glue was applied at the entry site. Pleurx catheter was disconnected from suction once drainage was complete and capped. Standard Pleurx dressing was placed. Patient was transferred to the recovery area in stable condition. Plan - Discharge Summary Discharge Rx Participant: No New Discharge Prescriptions: No Action Multivitamins, Thera [Multivitamin (formulary)] 1 tab PO DAILY Ondansetron [Zofran] 4 mg PO TID-W/MEALS Mirtazapine 7.5 mg PO W/SUPPER Furosemide [Lasix] 40 mg PO DAILY #30 tab Metoprolol Tartrate [Lopressor] 25 mg PO BID #60 tab Omeprazole [PriLOSEC] 40 mg PO DAILY #30 cap Albuterol Nebulized [Ventolin Nebulized] 1.25 mg INHALATION QID PRN PRN Reason: Shortness Of Breath Methimazole [Tapazole] 5 mg PO DAILY Discharge Medication List Multivitamins, Thera [Multivitamin (formulary)] 1 tab PO DAILY 08/28/15 [History] Ondansetron [Zofran] 4 mg PO TID-W/MEALS 04/29/19 [History] Mirtazapine 7.5 mg PO W/SUPPER 06/24/19 [History] Furosemide [Lasix] 40 mg PO DAILY #30 tab 06/27/19 [Rx] Metoprolol Tartrate [Lopressor] 25 mg PO BID #60 tab 06/27/19 [Rx] Omeprazole [PriLOSEC] 40 mg PO DAILY #30 cap 06/28/19 [Rx] Albuterol Nebulized [Ventolin Nebulized] 1.25 mg INHALATION QID PRN 07/16/19 [History] Methimazole [Tapazole] 5 mg PO DAILY 08/10/19 [History] Activity/Diet/Wound Care/Special Instructions: DISCHARGE INSTRUCTIONS: 1. Home care is ordered, they will obtain new bottles. 2. May shower after 24 hours, no baths/hot tubs. 3. Do not drain more than 1 L or 1000 mL from the Pleurx catheter in 24 hours. 4. NEW drainage bottles needed with each drainage. 5. Drainage frequency dictated by the patient's symptoms, may be every day, every other day, weekly or as needed if the patient is symptomatic. 6. Please notify the nurse practitioner or surgeons office if temperature is greater than 101F, excessive pain at insertion site, drainage consistency ch anges to cloudy or smells bad, catheter falls out. 7. Contact surgery office with weekly drainage amount. May fax the amounts. 8. Once drainage is less than 50 mL 3 times in a row, notify the surgery office for possible removal. Surgery office phone number is [phone], fax number is [phone] The Nurse practitioner numbers: Praveen [phone]. Discharge Disposition: HOME WITH HOME HEALTH SERVICES
[2019-08-12 11:07] VITALS: BP 96/61; PULSE 73; RESP 16
== END 2019-08-12 11:22 | disposition home health service (06) ==
LOC: OR 07:26
PROVIDERS: ATTEND Thoracic Surgery (Cardiothoracic Vascular Surgery)
DX: J91.0 Malignant pleural effusion (principal); I08.0 Rheumatic disorders of both mitral and aortic valves; Z79.890 Hormone replacement therapy; Z79.899 Other long term (current) drug therapy; Z87.891 Personal history of nicotine dependence; Z83.3 Family history of diabetes mellitus; Z82.49 Family history of ischemic heart disease and other diseases of the circulatory system; Z99.81 Dependence on supplemental oxygen; E07.9 Disorder of thyroid, unspecified; Z97.2 Presence of dental prosthetic device (complete) (partial); Z85.840 Personal history of malignant neoplasm of eye
CPT/HCPCS: 32550; 75989; 71045; J2250; J1100; J2405; J0690; J2001; J3010; J2370; J2704

== ENCOUNTER → 2019-09-30 | Outpatient (CLI) | payer MEDICARE ==
[2019-09-30 10:53] LABS: African American GFR (CKD) >90 (>60 ml/min/1.73 sqM); Blood Urea Nitrogen 18 mg/dL (9-20); Non-African American GFR(CKD) >90 (>60 ml/min/1.73 sqM)
--- NOTE | 2019-09-30 11:28 | CT ---
EXAMINATION TYPE: CT chest w con DATE OF EXAM: 09/30/2019 COMPARISON: 05/31/2019 HISTORY: Follow up lung cancer. CT DLP: 438 mGycm Automated exposure control for dose reduction was used. CONTRAST: CT scan of the chest is performed with IV Contrast, patient injected with 100 mL of Isovue 300. FINDINGS: LUNGS: Innumerable bilateral pulmonary nodules and masses most of which is in the right lung or pleur al-based. Direct comparison is difficult given the large right-sided pleural effusion noted previousl y. I do suspect progression however is conglomerate mass in the region of the right middle lobe now m easures 10.6 x 6.4 cm versus 8.7 x 6.5 cm previously. MEDIASTINUM progressive hilar and mediastinal adenopathy. Left hilar lymph node measures 4.6 cm versu s 2.6 cm. Subcarinal lymph node mass measures 3.2 cm versus 3.9 cm. UPPER ABDOMEN: No significant abnormality appreciated. OTHER: No additional significant abnormality is seen. IMPRESSION: 1. Progression of 5 innumerable bilateral pulmonary nodules and masses most of which are pleural-base d. As noted above. Comparison is somewhat difficult given large right-sided pleural effusion which wa s present previously and has since resolved with only a small residual pleural effusion seen. Right p leural catheter is in place. 2. Progressive hilar and mediastinal adenopathy.
== END | disposition home or self-care (01) ==
LOC: RADCTMAIN 10:06
PROVIDERS: ATTEND Internal Medicine Hematology & Oncology
DX: R91.8 Other nonspecific abnormal finding of lung field (principal); C43.9 Malignant melanoma of skin, unspecified; R06.02 Shortness of breath; R59.0 Localized enlarged lymph nodes
CPT/HCPCS: 82565; 84520; 71260; 36415; Q9967

== ENCOUNTER → 2019-11-15 | Outpatient (CLI) | payer MEDICARE ==
--- NOTE | 2019-11-15 14:52 | XR ---
EXAMINATION TYPE: XR femur LT DATE OF EXAM: 11/15/2019 COMPARISON: None HISTORY: Left hip pain TECHNIQUE: 2 view left femur FINDINGS: Knee prosthesis is present. Vascular calcification is noted The left femur appears intact. No acute fractures are evident. There is joint space narrowing at the hip. IMPRESSION: 1. No acute osseous abnormality left femur
--- NOTE | 2019-11-15 14:53 | XR ---
EXAMINATION TYPE: XR Hip Complete LT DATE OF EXAM: 11/15/2019 COMPARISON: None HISTORY: Left hip pain x1 month TECHNIQUE: 2 view left hip FINDINGS: There is joint space narrowing compatible with mild osteoarthritic degenerative change. No acute fractures are evident. Vascular calcification is noted. Some myositis ossificans may be present . IMPRESSION: 1. Mild osteoarthritic degenerative change left hip
== END | disposition home or self-care (01) ==
LOC: RADXRMAIN 13:57
PROVIDERS: ATTEND Internal Medicine
DX: M16.12 Unilateral primary osteoarthritis, left hip (principal); M25.552 Pain in left hip
CPT/HCPCS: 73502

== ENCOUNTER 2019-12-06 14:26 | Inpatient (IN) | payer MEDICARE ==
[2019-12-06] MEDS ORDERED: SODIUM CHLORIDE 0.9% 1,000 ML IV STA ×2 (14:58)
[2019-12-06 15:30] LABS: Basophils % (A) 1 %; Eosinophils # (A) 0.1 k/uL (0-0.7); Eosinophils % (A) 2 %; HGB 11.4 gm/dL (13.0-17.5); Lymphocytes # (A) 0.7 k/uL (1.0-4.8); Lymphocytes % (A) 17 %; MCH 30.9 pg (25.0-35.0); MCHC 32.4 g/dL (31.0-37.0); MCV 95.2 fL (80.0-100.0); Mean Platelet Volume 7.3; Monocytes # (A) 0.3 k/uL (0-1.0); Monocytes % (A) 7 %; Neutrophils # (A) 2.7 k/uL (1.3-7.7); Neutrophils % (A) 70 %; Platelet Count 208 k/uL (150-450); RBC 3.68 m/uL (4.30-5.90); RDW 15.5 % (11.5-15.5); WBC 3.9 k/uL (3.8-10.6)
--- NOTE | 2019-12-06 15:37 | ED ---
Weakness HPI - General Source: patient, family, RN notes reviewed, old records reviewed Mode of arrival: wheelchair Limitations: no limitations <Concepcion Murillo - Last Filed: 12/06/19 17:17> <Harry Chaudhry - Last Filed: 12/06/19 18:08> - General Chief complaint: Weakness Stated complaint: CARIDAD Time Seen by Provider: 12/06/19 14:42 - History of Present Illness Initial comments: Patient is a 74-year-old male with history of lung cancer who presents emergency room today for weakness, dehydration. Patient reportedly was hallucinating seeing people in the yard last night. Patient's family states this occurs when he has been severely dehydrated in the past. He reports that he sees Dr. Melgar for lung cancer. He finishes last oral chemotherapy one week ago. (Concepcion Murillo) - Related Data Home Medications Medication Instructions Recorded Confirmed Multivitamins, Thera [Multivitamin 1 tab PO DAILY 08/28/15 12/06/19 (formulary)] Ondansetron [Zofran] 4 mg PO TID-W/MEALS 04/29/19 12/06/19 Mirtazapine 7.5 mg PO W/SUPPER 06/24/19 12/06/19 Clotrimazole Judd [Mycelex 10 mg MUCOUS MEM 5XD PRN 12/06/19 12/06/19 Judd] Ipratropium-Albuterol Nebulize 3 ml INHALATION QID PRN 12/06/19 12/06/19 [Duoneb 0.5 mg-3 mg/3 ml Soln] Levothyroxine Sodium [Euthyrox] 100 mcg PO DAILY 12/06/19 12/06/19 Prochlorperazine [Compazine] 10 mg PO Q6H PRN 12/06/19 12/06/19 Sennosides/Docusate Sodium [Senna 1 tab PO HS 12/06/19 12/06/19 Plus 8.6-50 mg Tablet] Sulfamethox-Tmp 800-160Mg [Bactrim 1 tab PO MOWEFR 12/06/19 12/06/19 DS 800-160 mg] Previous Rx's Medication Instructions Recorded Omeprazole [PriLOSEC] 40 mg PO DAILY #30 cap 06/28/19 Allergies Allergy/AdvReac Type Severity Reaction Status Date / Time No Known Allergies Allergy Verified 12/06/19 17:00 Review of Systems ROS Other: All systems not noted in ROS Statement are negative. <Kena Murilloily - Last Filed: 12/06/19 17:17> ROS Other: All systems not noted in ROS Statement are negative. <ChaudhryHarry - Last Filed: 12/06/19 18:08> ROS Statement: Those systems with pertinent positive or pertinent negative responses have been documented in the HPI. Past Medical History Past Medical History: Cancer Additional Past Medical History / Comment(s): Lung CA,Melanoma, left eyes status post prosthesis at [facility], pleural effusion History of Any Multi-Drug Resistant Organisms: None Reported Past Surgical History: Joint Replacement, Orthopedic Surgery Additional Past Surgical History / Comment(s): TOTAL LEFT KNEE, LEFT ROTATOR CUFF, MARY JO CARPAL TUNNEl X2 EACH, prosthesis left eye 08/2018, abdominal hernia repair, multi thoracentesis Past Anesthesia/Blood Transfusion Reactions: No Reported Reaction Past Psychological History: No Psychological Hx Reported Past Alcohol Use History: Daily Past Drug Use History: None Reported - Past Family History Mother Family Medical History: No Reported History Additional Family Medical History / Comment(s): Mother at age 73 with history of diabetes. Father Additional Family Medical History / Comment(s): Father at age 65 from a myocardial infarction. Brother(s) Additional Family Medical History / Comment(s): Patient has 4 brothers when his past from a myocardial infarction at age 57, one has from kidney disease, one from coronary artery disease. One brother is alive with history of diabetes. Sister(s) Additional Family Medical History / Comment(s): Patient does not have any sisters. Son(s) Additional Family Medical History / Comment(s): Patient has 2 sons and one has from complications following bariatric surgery with PE, one son is alive with history of high cholesterol. Patient is one daughter with diabetes. <Kena Murilloily - Last Filed: 12/06/19 17:17> General Exam Limitations: no limitations Head exam: Present: atraumatic, normocephalic, normal inspection Eye exam: Present: normal appearance, PERRL, EOMI. Absent: scleral icterus, conjunctival injection, periorbital swelling ENT exam: Present: normal exam, mucous membranes moist Neck exam: Present: normal inspection. Absent: tenderness, meningismus, lymphadenopathy Respiratory exam: Present: normal lung sounds bilaterally. Absent: respiratory distress, wheezes, rales, rhonchi, stridor Cardiovascular Exam: Present: regular rate, normal rhythm, normal heart sounds. Absent: systolic murmur, diastolic murmur, rubs, gallop, clicks GI/Abdominal exam: Present: soft Back exam: Present: normal inspection Neurological exam: Present: alert, oriented X3, CN II-XII intact Psychiatric exam: Present: normal affect, normal mood Skin exam: Present: warm, dry, intact, normal color. Absent: rash <Concepcion Murillo - Last Filed: 12/06/19 17:17> - General Exam Comments Initial Comments: 74-year-old male. Alert and oriented 3. Knows self date and location. (Concepcion Murillo) Course Vital Signs 12/06/19 12/06/19 14:31 14:56 Temperature 98.0 F Pulse Rate 110 H 95 Respiratory 18 16 Rate Blood Pressure 83/59 110/70 O2 Sat by Pulse 95 95 Oximetry Medical Decision Making - Lab Data Result diagrams: 12/06/19 15:03 12/06/19 15:03 - Radiology Data Radiology results: report reviewed <Concepcion Murillo - Last Filed: 12/06/19 17:17> - Lab Data Result diagrams: 12/06/19 15:03 12/06/19 15:03 <Harry Chuadhry - Last Filed: 12/06/19 18:08> - Medical Decision Making Patient is a cachectic 74-year-old male with history of lung cancer. Presents today for worsening mental status changes. Patient reportedly was hallucinating last night. Patient at this time complains of no pain. He is alert and oriented 3. His family states he has not been having poor oral intake. He appears very dehydrated with dry oropharynx. Lactic acid is elevated at 3.5. Patient given [address] of the brain was negative for acute process. Chest x-ray shows evidence of known lung nodules. Patient did have mildly elevated troponin 0.0.9. Patient does not have chest pain at this time. No acute ST change on EKG. Patient case is discussed with Dr. Chaudhry him discussed with Dr. Rupert melvin who will admit the Patient with consults to oncology. (Concepcion Murillo) Patient reexamined and reevaluated by myself, Dr. Chaudhry. Patient resting complain bed. I do agree with PAs findings. This includes diagnostic interpretation and treatment plan. Case was discussed with Dr. Ball, who will admit his patient. Patient and family were updated. (Harry Chaudhry) - Lab Data Lab Results 12/06/19 12/06/19 12/06/19 Range/Units 15:03 15:03 15:03 WBC 3.9 (3.8-10.6) k/uL RBC 3.68 L (4.30-5.90) m/uL Hgb 11.4 L (13.0-17.5) gm/dL Hct 35.0 L (39.0-53.0) % MCV 95.2 (80.0-100.0) fL MCH 30.9 (25.0-35.0) pg MCHC 32.4 (31.0-37.0) g/dL RDW 15.5 (11.5-15.5) % Plt Count 208 (150-450) k/uL Neutrophils % 70 % Lymphocytes % 17 % Monocytes % 7 % Eosinophils % 2 % Basophils % 1 % Neutrophils # 2.7 (1.3-7.7) k/uL Lymphocytes # 0.7 L (1.0-4.8) k/uL Monocytes # 0.3 (0-1.0) k/uL Eosinophils # 0.1 (0-0.7) k/uL Basophils # 0.0 (0-0.2) k/uL PT 10.5 (9.0-12.0) sec INR 1.0 (<1.2) APTT 22.5 (22.0-30.0) sec Sodium 137 (137-145) mmol/L Potassium 4.2 (3.5-5.1) mmol/L Chloride 98 (98-107) mmol/L Carbon Dioxide 29 (22-30) mmol/L Anion Gap 10 mmol/L BUN 27 H (9-20) mg/dL Creatinine 0.87 (0.66-1.25) mg/dL Est GFR (CKD-EPI)AfAm >90 (>60 ml/min/1.73 sqM) Est GFR (CKD-EPI)NonAf 84 (>60 ml/min/1.73 sqM) Glucose 95 (74-99) mg/dL Lactic Ac Sepsis Rflx Plasma Lactic Acid Jamie (0.7-2.0) mmol/L Calcium 10.1 (8.4-10.2) mg/dL Total Bilirubin 0.6 (0.2-1.3) mg/dL AST 62 H (17-59) U/L ALT 19 (4-49) U/L Alkaline Phosphatase 105 (38-126) U/L Troponin I (0.000-0.034) ng/mL Total Protein 8.3 H (6.3-8.2) g/dL Albumin 3.8 (3.5-5.0) g/dL Urine Color Urine Appearance (Clear) Urine pH (5.0-8.0) Ur Specific Moro (1.001-1.035) Urine Protein (Negative) Urine Glucose (UA) (Negative) Urine Ketones (Negative) Urine Blood (Negative) Urine Nitrite (Negative) Urine Bilirubin (Negative) Urine Urobilinogen (<2.0) mg/dL Ur Leukocyte Esterase (Negative) 12/06/19 12/06/19 12/06/19 Range/Units 15:03 15:03 15:59 WBC (3.8-10.6) k/uL RBC (4.30-5.90) m/uL Hgb (13.0-17.5) gm/dL Hct (39.0-53.0) % MCV (80.0-100.0) fL MCH (25.0-35.0) pg MCHC (31.0-37.0) g/dL RDW (11.5-15.5) % Plt Count (150-450) k/uL Neutrophils % % Lymphocytes % % Monocytes % % Eosinophils % % Basophils % % Neutrophils # (1.3-7.7) k/uL Lymphocytes # (1.0-4.8) k/uL Monocytes # (0-1.0) k/uL Eosinophils # (0-0.7) k/uL Basophils # (0-0.2) k/uL PT (9.0-12.0) sec INR (<1.2) APTT (22.0-30.0) sec Sodium (137-145) mmol/L Potassium (3.5-5.1) mmol/L Chloride (98-107) mmol/L Carbon Dioxide (22-30) mmol/L Anion Gap mmol/L BUN (9-20) mg/dL Creatinine (0.66-1.25) mg/dL Est GFR (CKD-EPI)AfAm (>60 ml/min/1.73 sqM) Est GFR (CKD-EPI)NonAf (>60 ml/min/1.73 sqM) Glucose (74-99) mg/dL Lactic Ac Sepsis Rflx Y Plasma Lactic Acid Jamie 3.5 H* (0.7-2.0) mmol/L Calcium (8.4-10.2) mg/dL Total Bilirubin (0.2-1.3) mg/dL AST (17-59) U/L ALT (4-49) U/L Alkaline Phosphatase (38-126) U/L Troponin I 0.049 H* (0.000-0.034) ng/mL Total Protein (6.3-8.2) g/dL Albumin (3.5-5.0) g/dL Urine Color Urine Appearance (Clear) Urine pH (5.0-8.0) Ur Specific Moro (1.001-1.035) Urine Protein (Negative) Urine Glucose (UA) (Negative) Urine Ketones (Negative) Urine Blood (Negative) Urine Nitrite (Negative) Urine Bilirubin (Negative) Urine Urobilinogen (<2.0) mg/dL Ur Leukocyte Esterase (Negative) 12/06/19 Range/Units 16:45 WBC (3.8-10.6) k/uL RBC (4.30-5.90) m/uL Hgb (13.0-17.5) gm/dL Hct (39.0-53.0) % MCV (80.0-100.0) fL MCH (25.0-35.0) pg MCHC (31.0-37.0) g/dL RDW (11.5-15.5) % Plt Count (150-450) k/uL Neutrophils % % Lymphocytes % % Monocytes % % Eosinophils % % Basophils % % Neutrophils # (1.3-7.7) k/uL Lymphocytes # (1.0-4.8) k/uL Monocytes # (0-1.0) k/uL Eosinophils # (0-0.7) k/uL Basophils # (0-0.2) k/uL PT (9.0-12.0) sec INR (<1.2) APTT (22.0-30.0) sec Sodium (137-145) mmol/L Potassium (3.5-5.1) mmol/L Chloride (98-107) mmol/L Carbon Dioxide (22-30) mmol/L Anion Gap mmol/L BUN (9-20) mg/dL Creatinine (0.66-1.25) mg/dL Est GFR (CKD-EPI)AfAm (>60 ml/min/1.73 sqM) Est GFR (CKD-EPI)NonAf (>60 ml/min/1.73 sqM) Glucose (74-99) mg/dL Lactic Ac Sepsis Rflx Plasma Lactic Acid Jamie (0.7-2.0) mmol/L Calcium (8.4-10.2) mg/dL Total Bilirubin (0.2-1.3) mg/dL AST (17-59) U/L ALT (4-49) U/L Alkaline Phosphatase (38-126) U/L Troponin I (0.000-0.034) ng/mL Total Protein (6.3-8.2) g/dL Albumin (3.5-5.0) g/dL Urine Color Yellow Urine Appearance Clear (Clear) Urine pH 5.5 (5.0-8.0) Ur Specific Moro 1.026 (1.001-1.035) Urine Protein Trace H (Negative) Urine Glucose (UA) Negative (Negative) Urine Ketones Trace H (Negative) Urine Blood Negative (Negative) Urine Nitrite Negative (Negative) Urine Bilirubin Negative (Negative) Urine Urobilinogen <2.0 (<2.0) mg/dL Ur Leukocyte Esterase Negative (Negative) 12/06/19 17:19 EKG shows sinus rhythm with premature atrial problems. Hemorrhage back. Septal infarct as interpreted. Prolonged QT. Ventricular rate 99 bpm. RI interval is 208 ms. QS duration is 106 no seconds. QT QTc is 420/511 ms. (Concepcion Murillo) - Radiology Data Age related atrophic and chornic small vellel sischemic change without acute intracranial process seen at this time. Multiple bilateral enlarging pulmonary masses. Right basilar chest tubes in place. No sizable pneumothorax is evident. Immunization right pleural ef fusion. (Concepcion Murillo) Disposition Is patient prescribed a controlled substance at d/c from ED?: No Time of Disposition: 17:18 <Concepcion Murillo - Last Filed: 12/06/19 17:17> <Harry Chaudhry - Last Filed: 12/06/19 18:08> Clinical Impression: Dehydration, Lung nodules, AMS (altered mental status) Disposition: ADMITTED IP TO THIS HOSP Condition: Stable Referrals: Soy Ball MD [Primary Care Provider] - 1-2 days
--- NOTE | 2019-12-06 15:40 | CT ---
EXAMINATION TYPE: CT brain wo con DATE OF EXAM: 12/06/2019 COMPARISON: None HISTORY: hallucination, weakness CT DLP: 1029.[address] of the brain was performed. The ventricles, basal cisterns and sulci overlying the cerebral convexities demonstrate mild enlargem ent. There is no evidence for intracranial hemorrhage or sulcal effacement. There is decreased attenuation about the periventricular white matter and deep white matter of both c erebral hemispheres, compatible with chronic small vessel ischemia. Differential diagnosis does inclu de demyelination. No mass effects are seen.No midline shift. Osseous calvarium is intact. Left ocular prosthetic noted. If symptoms persist consider MRI. IMPRESSION: 1. Age related atrophic and chronic small vessel ischemic change without acute intracranial process s een at this time.
[2019-12-06 15:42] LABS: ALT 19 U/L (4-49); AST 62 U/L (17-59); African American GFR (CKD) >90 (>60 ml/min/1.73 sqM); Albumin 3.8 g/dL (3.5-5.0); Alkaline Phosphatase 105 U/L (38-126); Anion Gap 10 mmol/L; Blood Urea Nitrogen 27 mg/dL (9-20); Calcium 10.1 mg/dL (8.4-10.2); Carbon Dioxide 29 mmol/L (22-30); Chloride 98 mmol/L (98-107); Glucose 95 mg/dL (74-99); Non-African American GFR(CKD) 84 (>60 ml/min/1.73 sqM); Partial Thromboplastin Time 22.5 sec (22.0-30.0); Potassium 4.2 mmol/L (3.5-5.1); Prothrombin Time 10.5 sec (9.0-12.0); Sodium 137 mmol/L (137-145); Total Bilirubin 0.6 mg/dL (0.2-1.3); Total Protein 8.3 g/dL (6.3-8.2)
--- NOTE | 2019-12-06 15:45 | XR ---
EXAMINATION TYPE: XR chest 2V DATE OF EXAM: 12/06/2019 COMPARISON: 08/12/2019 HISTORY: Lung carcinoma TECHNIQUE: Frontal and lateral views of the chest are obtained. FINDINGS: Scattered senescent parenchymal changes noted. Hyperinflation compatible with COPD. Multiple bilateral enlarging pulmonary masses. Right basilar chest tube is in place. No sizable pneum othorax evident. Diminution in right-sided pleural effusion. Heart size is stable. Mediastinal structures are stable and grossly unremarkable. No evidence for hilar prominence. Degenerative changes dorsal spine. IMPRESSION: 1. Multiple bilateral enlarging pulmonary masses. Right basilar chest tube is in place. No sizable pn eumothorax evident. Diminution in right-sided pleural effusion.
[2019-12-06] MEDS ORDERED: SODIUM CHLORIDE 0.9% 1,000 ML IV ONE (15:55)
[2019-12-06 17:07] LABS: Appearance,Urine Clear (Clear); Bilirubin,Urine Negative (Negative); Blood,Urine Negative (Negative); Color,Urine Yellow; Glucose,Urine (UA) Negative (Negative); Ketones,Urine Trace (Negative); Leukocyte Esterase,Urine Negative (Negative); Nitrite,Urine Negative (Negative); PH, Urine 5.5 (5.0-8.0); Protein,Urine Trace (Negative); Specific Gravity,Urine 1.026 (1.001-1.035); Urobilinogen,Urine <2.0 mg/dL (<2.0)
[2019-12-06] MEDS ORDERED: HYDROmorphone 0.5 MG/0.5 ML SYRINGE IVP PRN (17:22)
[2019-12-06] MEDS ORDERED: IBUPROFEN 400 MG TAB PO PRN (17:22)
[2019-12-06] MEDS ORDERED: ACETAMINOPHEN TAB 325 MG TAB PO PRN (17:22)
[2019-12-06] MEDS ORDERED: MORPHINE SULFATE 4 MG/ML SYRINGE IV PRN (17:22)
[2019-12-06] MEDS ORDERED: NALOXONE 0.4 MG/ML 1 ML VIAL IV PRN (17:22)
[2019-12-06] MEDS ORDERED: LORazepam 2 MG/ML INJ IV PRN (17:22)
[2019-12-07] MEDS: IPRATROPIUM-ALBUTEROL 3 ML NEB INHALATION PRN ×2 (02:17→16:41)
[2019-12-07] MEDS ORDERED: PANTOPRAZOLE 40 MG/10 ML VIAL IV SCH (09:00)
[2019-12-07] MEDS ORDERED: CLOTRIMAZOLE TROCHE 10 MG TROCHE MUCOUS MEM PRN (09:43)
[2019-12-07] MEDS ORDERED: PROCHLORPERAZINE 10 MG TAB PO PRN (09:43)
[2019-12-07 12:33] LABS: African American GFR (CKD) >90 (>60 ml/min/1.73 sqM); Albumin 3.5 g/dL (3.5-5.0); Anion Gap 10 mmol/L; Blood Urea Nitrogen 24 mg/dL (9-20); Calcium 9.6 mg/dL (8.4-10.2); Carbon Dioxide 23 mmol/L (22-30); Chloride 103 mmol/L (98-107); Glucose 129 mg/dL (74-99); Non-African American GFR(CKD) 86 (>60 ml/min/1.73 sqM); Potassium 4.9 mmol/L (3.5-5.1); Sodium 136 mmol/L (137-145); Total Bilirubin 0.5 mg/dL (0.2-1.3); Total Protein 7.8 g/dL (6.3-8.2)
[2019-12-07 12:34] LABS: ALT 19 U/L (4-49); AST 65 U/L (17-59); Alkaline Phosphatase 96 U/L (38-126); LDH 1425 U/L (313-618)
[2019-12-07] MEDS: ONDANSETRON 4 MG TAB PO SCH ×2 (12:51→17:24)
[2019-12-07] MEDS ORDERED: SODIUM CHLORIDE 0.9% 1,000 ML IV SCH (13:15)
[2019-12-07 13:19] VITALS: TEMP 97.4
[2019-12-07 13:19] LABS: Basophils % (A) 0 %; Eosinophils # (A) 0.1 k/uL (0-0.7); Eosinophils % (A) 1 %; HCT 35.1 % (39.0-53.0); HGB 10.8 gm/dL (13.0-17.5); Hypochromasia Moderate; Lymphocytes # (A) 1.2 k/uL (1.0-4.8); Lymphocytes % (A) 18 %; MCH 30.9 pg (25.0-35.0); MCHC 30.8 g/dL (31.0-37.0); Macrocytosis Slight; Mean Platelet Volume 9.6; Monocytes # (A) 0.4 k/uL (0-1.0); Monocytes % (A) 7 %; Neutrophils # (A) 4.5 k/uL (1.3-7.7); Neutrophils % (A) 71 %; Platelet Count 211 k/uL (150-450); RBC 3.49 m/uL (4.30-5.90); RDW 15.5 % (11.5-15.5); WBC 6.3 k/uL (3.8-10.6)
[2019-12-07 13:31] LABS: MCV 100.4 fL (80.0-100.0)
--- NOTE | 2019-12-07 14:07 | P.HPIM ---
History of Present Illness H&P Date: 12/07/19 Chief Complaint: weakness, CARIDAD This is a 74-year-old male patient of Dr. Ball and Dr. 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 In April patient was found to have extensive interval metastatic disease progression with malignant moderate to large right pleural effusion, development of neoplastic pleural right mid and lower lung, numerous new and enlarging pulmonary nodules, extensive neoplastic involvement throughout the right middle lobe and new AP win issac and prevascular space lymphadenopathy. Right middle lobe is either entirely involved with tumor or opacified. CT of the abdomen and pelvis with contrast revealed no abdominalopelvic neoplastic disease. Ultrasound of the chest was marked for right-sided 18.8 cm pleural effusion and he underwent thoracentesis with Dr. Green with removal of 2 L of fluid. Pathology revealed rare cells consistent with metastatic melanoma in the background of chronic pleuritis. On June 13, patient underwent ultrasound-guided thoracentesis with Dr. Rush as an outpatient with removal of 2.1 L of serosanguineous fluid. In July, patient had right sided Pleurx catheter placement with Dr. Pantoja. Pleurx catheter is draining on Mondays and by patient's home care nurse. He subsequently underwent CAT scan of the chest 09/30/2019 which revealed progression of 5 in numerable bilateral pulmonary nodules and masses most of which are pleural based. Large right-sided pleural effusion which was present previously and has since resolved with only a small residual pleural effusion seen. Right pleural catheter is in place. Progressive hilar and mediastinal adenopathy. November 14, patient had left hip and femur x-ray that showed no abnormality with mild degenerative changes. Patient states that he is currently undergoing chemotherapy/immunotherapy with oncology. Patient complains of feeling very tired and not well. Family concerning the patient was hallucinating. He is too weak to do anything. He states he is short of breath at rest and with minimal activity. He has had decreased appetite with significant weight loss. Patient is noted today to be having hallucinations and thinks his son has been in the hospital. Sitter is at the bedside. Patient came into [facility] emergency center for evaluation. Pulse ox 95% on 2 L nasal cannula, blood pressure 83/59, heart rate 110, afebrile. WBC 3.9, hemoglobin 11.3. Electrolytes normal, BUN 27 creatinine 0.87. Initial lactic acid is 3.5 and now at 5.9. LDH 1425. Albumin 3.5. AST 65. TSH is 8.2 and free T4 is pending. Cortisol level 30. Urinalysis trace ketones and trace protein. CAT scan of the brain showed age-related atrophy and chronic small vessel ischemic change without acute intracranial process. Chest x-ray reveals multiple bilateral enlarging pulmonary masses. Right basilar chest tube is in place. No sizable pneumothorax. EKG sinus rhythm with PACs. Patient has been admitted to the cardiac stepdown unit, he continues to be hypotensive and on IV fluids with continued lactic acidosis. Consults in place with oncology and they have ordered a CT angiogram of the chest and MRI of the brain. Clarified CODE STATUS and patient is full code with no intubation. Review of Systems Constitutional: Reports anorexia, Reports fatigue, Reports lethargy, Reports malaise, Reports poor appetite, Reports weakness, Reports weight loss, Denies chills, Denies fever Eyes: denies blurred vision, denies pain Ears, nose, mouth and throat: Denies dysphagia, Denies headache, Denies nasal congestion, Denies nasal discharge, Denies sore throat Cardiovascular: Reports decreased exercise tolerance, Reports dyspnea on exertion, Reports shortness of breath, Denies chest pain, Denies edema, Denies leg edema, Denies orthopnea, Denies palpitations, Denies syncope Respiratory: Reports dyspnea, Denies cough, Denies cough with sputum, Denies excessive sputum, Denies hemoptysis Gastrointestinal: Reports loss of appetite, Denies abdominal pain, Denies diarrhea, Denies nausea, Denies vomiting Genitourinary: Denies dysuria, Denies urinary retention Musculoskeletal: Reports gait dysfunction, Reports muscle weakness, Denies myalgias Integumentary: Reports color changes (Mottling), Denies pruritus, Denies rash, Denies wounds Neurological: Reports balance difficulties, Reports change in mentation, Reports confusion, Reports gait dysfunction, Reports weakness, Denies head injury, Denies numbness, Denies seizures, Denies syncope Psychiatric: Reports hallucinations, Denies anxiety, Denies depression Endocrine: Denies fatigue, Denies weight change Past Medical History Past Medical History: Cancer Additional Past Medical History / Comment(s): Lung CA,Melanoma left eye, left eyes status post prosthesis at [facility], pleural effusion History of Any Multi-Drug Resistant Organisms: None Reported Past Surgical History: Joint Replacement, Orthopedic Surgery Additional Past Surgical History / Comment(s): TOTAL LEFT KNEE, LEFT ROTATOR C UFF, MARY JO CARPAL TUNNEl X2 EACH, prosthesis left eye 08/2018, abdominal hernia repair, multi thoracentesis Past Anesthesia/Blood Transfusion Reactions: No Reported Reaction Past Psychological History: No Psychological Hx Reported Smoking Status: Former smoker Past Alcohol Use History: Daily Additional Past Alcohol Use History / Comment(s): QUIT SMOKING 30 YEARS AGO. SMOKED LESS THAN 1 PPD FOR 30 YEARS OR MORE. Past Drug Use History: None Reported - Past Family History Mother Family Medical History: No Reported History Additional Family Medical History / Comment(s): Mother at age 73 with history of diabetes. Father Additional Family Medical History / Comment(s): Father at age 65 from a myocardial infarction. Brother(s) Additional Family Medical History / Comment(s): Patient has 4 brothers when his past from a myocardial infarction at age 57, one has from kidney disease, one from coronary artery disease. One brother is alive with history of diabetes. Sister(s) Additional Family Medical History / Comment(s): Patient does not have any sisters. Son(s) Additional Family Medical History / Comment(s): Patient has 2 sons and one has from complications following bariatric surgery with PE, one son is alive with history of high cholesterol. Patient is one daughter with diabetes. Medications and Allergies Home Medications Medication Instructions Recorded Confirmed Type Multivitamins, Thera [Multivitamin 1 tab PO DAILY 08/28/15 12/06/19 History (formulary)] Ondansetron [Zofran] 4 mg PO TID-W/MEALS 04/29/19 12/06/19 History Mirtazapine 7.5 mg PO W/SUPPER 06/24/19 12/06/19 History Omeprazole [PriLOSEC] 40 mg PO DAILY #30 cap 06/28/19 12/06/19 Rx Clotrimazole Judd [Mycelex 10 mg MUCOUS MEM 5XD PRN 12/06/19 12/06/19 History Judd] Ipratropium-Albuterol Nebulize 3 ml INHALATION QID PRN 12/06/19 12/06/19 History [Duoneb 0.5 mg-3 mg/3 ml Soln] Levothyroxine Sodium [Euthyrox] 100 mcg PO DAILY 12/06/19 12/06/19 History Prochlorperazine [Compazine] 10 mg PO Q6H PRN 12/06/19 12/06/19 History Sennosides/Docusate Sodium [Senna 1 tab PO HS 12/06/19 12/06/19 History Plus 8.6-50 mg Tablet] Sulfamethox-Tmp 800-160Mg [Bactrim 1 tab PO MOWEFR 12/06/19 12/06/19 History DS 800-160 mg] Allergies Allergy/AdvReac Type Severity Reaction Status Date / Time No Known Allergies Allergy Verified 12/06/19 17:00 Physical Exam Vitals: Vital Signs Temp Pulse Pulse Resp BP BP Pulse Ox 12/07/19 08:00 112 H 28 H 83/59 95 12/07/19 04:00 97.9 F 103 H 20 92/60 94 L 12/07/19 02:31 100 12/07/19 02:17 107 H 12/07/19 00:00 98.3 F 98 20 99/62 96 12/06/19 21:16 97 20 103/70 95 12/06/19 20:00 90 16 110/77 97 12/06/19 19:30 95 18 103/69 96 12/06/19 18:30 90 18 107/80 97 12/06/19 18:00 90 18 115/75 12/06/19 17:30 90 18 110/82 100 12/06/19 17:00 91 112/78 97 12/06/19 16:30 18 97/70 94 L 12/06/19 16:00 96 12/06/19 15:30 97/72 12/06/19 15:00 110/70 94 L 12/06/19 14:56 95 16 110/70 95 12/06/19 14:48 110/70 96 12/06/19 14:31 98.0 F 110 H 18 83/59 95 Intake and Output 12/06/19 12/07/19 12/07/19 22:59 06:59 14:59 Output Total 200 Balance -200 Output: Urine 200 Other: # Voids 1 Weight 54.431 kg 57 kg 61.8 kg Gen: This is a 74-year-old thin cachectic appearing male. Patient sitting on the edge of the bed and appears to be anxious, unable to comfortable. Patient's sitter at bedside. HEENT: Head is atraumatic, normocephalic. Pupil round. Prosthesis left eye. Sclerae is anicteric. Conjunctiva pale. Mucous members of the mouth are dry. NECK: Supple. No JVD. No lymphadenopathy. No thyromegaly. LUNGS: Diminished to the right base, no egophony. Scattered rhonchi. No intercostal retractions. HEART: Irregular rate and rhythm. No murmur. ABDOMEN: Soft. Bowel sounds are present. No masses. No tenderness. EXTREMITIES: No pedal edema. No calf tenderness. Dorsalis pedis palpable bilaterally. Extremities are cool to the touch and mottled. NEUROLOGICAL: Patient is awake, alert and oriented to person and place. Cranial nerves 2 through 12 are grossly intact. Generalized weakness noted. Results CBC & Chem 7: 12/07/19 10:19 12/07/19 10:19 Labs: Abnormal Lab Results - Last 24 Hours (Table) 12/06/19 12/06/19 12/06/19 Range/Units 15:03 15:03 15:03 RBC 3.68 L (4.30-5.90) m/uL Hgb 11.4 L (13.0-17.5) gm/dL Hct 35.0 L (39.0-53.0) % Lymphocytes # 0.7 L (1.0-4.8) k/uL Sodium (137-145) mmol/L BUN 27 H (9-20) mg/dL Glucose (74-99) mg/dL Plasma Lactic Acid Jamie 3.5 H* (0.7-2.0) mmol/L AST 62 H (17-59) U/L Lactate Dehydrogenase (313-618) U/L Troponin I (0.000-0.034) ng/mL Total Protein 8.3 H (6.3-8.2) g/dL Urine Protein (Negative) Urine Ketones (Negative) 12/06/19 12/06/19 12/06/19 Range/Units 15:03 16:45 18:56 RBC (4.30-5.90) m/uL Hgb (13.0-17.5) gm/dL Hct (39.0-53.0) % Lymphocytes # (1.0-4.8) k/uL Sodium (137-145) mmol/L BUN (9-20) mg/dL Glucose (74-99) mg/dL Plasma Lactic Acid Jamie 2.3 H* (0.7-2.0) mmol/L AST (17-59) U/L Lactate Dehydrogenase (313-618) U/L Troponin I 0.049 H* (0.000-0.034) ng/mL Total Protein (6.3-8.2) g/dL Urine Protein Trace H (Negative) Urine Ketones Trace H (Negative) 12/06/19 12/07/19 12/07/19 Range/Units 21:53 00:47 03:34 RBC (4.30-5.90) m/uL Hgb (13.0-17.5) gm/dL Hct (39.0-53.0) % Lymphocytes # (1.0-4.8) k/uL Sodium (137-145) mmol/L BUN (9-20) mg/dL Glucose (74-99) mg/dL Plasma Lactic Acid Jamie 2.1 H* 2.8 H* 3.4 H* (0.7-2.0) mmol/L AST (17-59) U/L Lactate Dehydrogenase (313-618) U/L Troponin I (0.000-0.034) ng/mL Total Protein (6.3-8.2) g/dL Urine Protein (Negative) Urine Ketones (Negative) 12/07/19 12/07/19 12/07/19 Range/Units 06:31 10:19 10:19 RBC (4.30-5.90) m/uL Hgb (13.0-17.5) gm/dL Hct (39.0-53.0) % Lymphocytes # (1.0-4.8) k/uL Sodium 136 L (137-145) mmol/L BUN 24 H (9-20) mg/dL Glucose 129 H (74-99) mg/dL Plasma Lactic Acid Jamie 5.5 H* 5.9 H* (0.7-2.0) mmol/L AST 65 H (17-59) U/L Lactate Dehydrogenase 1425 H (313-618) U/L Troponin I (0.000-0.034) ng/mL Total Protein (6.3-8.2) g/dL Urine Protein (Negative) Urine Ketones (Negative) Thrombosis Risk Factor Assmnt - DVT/VTE Prophylaxis DVT/VTE Prophylaxis: Pharmacologic Prophylaxis ordered - Choose All That Apply Each Factor Represents 1 point: Sepsis (< 1month) Each Risk Factor Represents 3 Points: Age 75 years or older Thrombosis Risk Factor Assessment Total Risk Factor Score: 4 Thrombosis Risk Factor Assessment Level: Moderate Risk Assessment and Plan Plan: 1. Multiple bilateral enlarging pulmonary masses despite aggressive treatment. Oncology consult appreciated. MRI of the brain and CTA of the chest ordered. 2. Acute dyspnea and weakness secondary to enlarging pulmonary masses with metastatic melanoma progression. Pleurx catheter in place to be drained every Friday and Friday. CTA of the chest to rule out pulmonary embolism. 3. Metabolic encephalopathy with hallucinations, rule out metastatic disease to the brain. Consult with oncology appreciated. MRI of the brain. 4. Severe lactic acidosis secondary to metastatic melanoma progression. Continue IV fluids at 100 mL per hour. 5. 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 6. Severe hypotension. Continue IV fluids. 7. Previous episode of paroxysmal atrial fibrillation currently in a sinus rhythm. Patient is off beta jojo, no anticoagulation. 8. Osteoarthritis, generalized, stable. 9. Remote history of tobacco use and quit in 1992. 10. History of daily alcohol use, cessation. 11. GERD and GI prophylaxis. Protonix. 12. Severe protein calorie malnutrition with BMI of 19 and weight loss of 32 kg since April 2019. Regular diet plus Ensure twice daily. 13. DVT prophylaxis. Heparin subcu. CODE STATUS: DO NOT INTUBATE Patient will be admitted to the hospital for a minimum of 2 night stay. Discharge plan: To be determined. Impression and plan of care have been directed as dictated by the signing phys anil. Renae Weber nurse practitioner acting as scribe for signing physician.
[2019-12-07 14:17] LABS: T4, Free (Free Thyroxine) 1.26 ng/dL (0.78-2.19)
[2019-12-07 14:41] VITALS: BMI 19.0
--- NOTE | 2019-12-07 16:14 | MR ---
EXAMINATION TYPE: MR brain wo/w con DATE OF EXAM: 12/07/2019 COMPARISON: CT brain 12/06/2019 HISTORY: Mental status change assess mets TECHNIQUE: Multiplanar, multisequence images of the brain and brainstem is performed without and with IV contras t, utilizing 6.5 mL intravenous Gadavist . FINDINGS: Patient was unable to cooperate completely with the exam, there is motion. Prosthesis is no marquita within the left orbit as on CT. Diffusion weighted images demonstrate no evidence of a recent inf arct or other diffusion abnormality. There is no extra-axial fluid collection, some periventricular hyperintensity and inversion recovery and T2-weighted sequences is noted, there is mild cortical atro phy. The ventricular system and cisternal spaces are normal in size and appearance. The brain volum e is age appropriate. Midline structures demonstrate normal morphology. The craniocervical junction appears within normal limits. Post contrast images are nondiagnostic, no gross abnormal enhancement. The dural venous sinu ses appear patent. The visualized sinuses are remarkable for inflammatory change in the ethmoid air c ells. IMPRESSION: Motion on the exam and limits evaluation. Age-related changes of atrophy and chronic smal l vessel ischemia.
[2019-12-07 16:58] VITALS: BP 74/51; PULSE 94; RESP 28
--- NOTE | 2019-12-07 17:03 | CT ---
EXAMINATION TYPE: CT angio chest DATE OF EXAM: 12/07/2019 4:07 PM COMPARISON: CT chest 09/30/2019. HISTORY: SOB. hx of lung ca. CT DLP: 426 mGycm Automated exposure control for dose reduction was used. CONTRAST: CTA scan of the thorax is performed with IV Contrast, patient injected with 86cc mL of Isovue 370, pu lmonary embolism protocol. MIP images are created and reviewed. FINDINGS: LUNGS: Right-sided basilar chest tube. Innumerable bilateral pulmonary nodules and masses, the majori ty of which are pleural-based or within the right lung, are significantly increased versus 09/30/2019 c omparison. There is interlobular septal thickening, groundglass opacities, and increased bronchiectas is. There is no pleural effusion or pneumothorax seen. The tracheobronchial tree is patent. MEDIASTINUM: There is satisfactory enhancement of the pulmonary artery and its branches, there is no CT evidence for pulmonary embolism. The hilar and mediastinal lymph nodes are difficult to delineate from the significantly increased pulmonary nodules and masses. Cardiac size normal. No pericardial e ffusion is seen. OTHER: Significant degenerative changes the spine. No evidence of osseous erosion. IMPRESSION: 1. No evidence of pulmonary embolism. 2. Significantly increased size of innumerable bilateral pulmonary nodules and masses, right greater than left. The hilar and mediastinal lymph nodes are difficult to delineate from the extensive pulmon marcio masses. 3. Interstitial lung changes including interlobular septal thickening, groundglass opacities, and bro nchiectasis increased or new from 09/30/2019.
[2019-12-07] MEDS ORDERED: MIRTAZAPINE 15 MG TAB PO SCH (17:30)
--- NOTE | 2019-12-07 17:49 | P.CONS ---
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 He presented with gradual decreased vision field X 4-6 months before melanoma was identified clinically. He is doing well post enucleation, remains fully active. He stated being healthy otherwise. He smoked 1 PPD X 30 years, quit smoking 25 years ago. He consumes 3-4 beers/day. The patient denied family history of Melanoma. 04/06/19: Feels Ok, C/O mild fatigue and chronic dyspnea. 05/11/19: Logan was admitted to [facility] with SOB, CT Scan revealed large R pleural effusion and extensive throacic progression of what apperaed to be metastatic disease. Therapeutic/Diagnostic Thoracentesis revealed malignant effusion with metastatic melanoma. He is C/O SOB, mostly exertional , as well as, headache. 06/15/19: Not doing well > persistent nausea/vomoting, lost significant weight, unable to stand > in wheelchair most of times. 06/24/19-Pt agreed to TC to discuss pt case. Acute visit. Reports p rogressive symptoms, CARIDAD, trouble expectorating, small amounts of phelgm, hemoptosis 1, can only ambulate 5 feet before he becomes significantly short of breath, takes him several minutes to recuperate. Patient complains of orthopnea, legs and and feet are swollen. Ate only a little bit today, per sistent poor fluid intake, nauseated all the time, antiemetics don't work. She is worried he is going to fall, she knows she cannot get him up. Patient was in the office last week and treated with hydration and antiemetics, when I asked patient's to compare that situation to the patient's situation right now, did she think that some hydration and nausea medicine would help him she states she does not. I told her that I wanted to contact 911 to take the patient to the emergency department, patient wanted me to contact her son first. I contacted and spoke to Marshall ([phone]) he was agreeable to go to the house and assess the situation. I was on the phone the patient and son arrived. He had someone with him and they were going to carry the patient to the vehicle and bring him to the emergency department. I expressed safety concerns. They verbalized understanding the risks. Did explain to them the situation in the hospital where there are minimal visitors. Both son and verbalized understanding. 07/06/19: Feels better, was hospitalized at [facility] with weakness & dehydration. He is now on O2 at all times. Stated having better oral intake, needs help with standing/ambulation. He tolerated Opdivo infusion well. 08/04/19: Feels better > appetite increased, a bit more sleepy. Denies any pain, he is more active and denies weight loss. He will have Pleurex cath placed by Dr Kit joe. 08/31/19: Feels OK, C/O SOB, had R pleurex cath placed > drained by VN three times weekly (1000 ml each time !!). 09/13/19-Pt here s/p cycle 3 of opdivo, he is getting rid of shingles (hospitalized back in June). 700ml was drained from the Rt lung today, breathing is a little better. He in general is weak, his BP is very low (80's/60's), he is dizzy when changing positions, no F, oral irritation, his states his oral intake is fiar/poor, no N,V, chest pain, abd pain, D, constipation, swelling in the legs. No other c/o reviewing immunotherapy SE. 10/08/19: Feels "OK", still having 400-500 ML pleural fluids drainage 3 times weekly. Tolerating Opdivo well without side effects. 11/10/19: Not doing well, C/O increasing SOB, anorexia & weight loss. He is very weak. Last treatment in September with opdivo and yervoy. He presents with SOB. CTA reveals progressive innumerable pulmonary nodules, as well as interstitial changes. No Pulmonary Emobi noted. He was recently started on Temodar treatment and prophylaxic bactrim 11/19/19. Review of Systems All systems: negative (hpi) Past Medical History Past Medical History: Cancer Additional Past Medical History / Comment(s): Lung CA,Melanoma left eye, left eyes status post prosthesis at [facility], pleural effusion History of Any Multi-Drug Resistant Organisms: None Reported Past Surgical History: Joint Replacement, Orthopedic Surgery Additional Past Surgical History / Comment(s): TOTAL LEFT KNEE, LEFT ROTATOR CUFF, MARY JO CARPAL TUNNEl X2 EACH, prosthesis left eye 08/2018, abdominal hernia repair, multi thoracentesis Past Anesthesia/Blood Transfusion Reactions: No Reported Reaction Past Psychological History: No Psychological Hx Reported Smoking Status: Former smoker Past Alcohol Use History: Daily Additional Past Alcohol Use History / Comment(s): QUIT SMOKING 30 YEARS AGO. SMOKED LESS THAN 1 PPD FOR 30 YEARS OR MORE. Past Drug Use History: None Reported - Past Family History Mother Family Medical History: No Reported History Additional Family Medical History / Comment(s): Mother at age 73 with history of diabetes. Father Additional Family Medical History / Comment(s): Father at age 65 from a myocardial infarction. Brother(s) Additional Family Medical History / Comment(s): Patient has 4 brothers when his past from a myocardial infarction at age 57, one has from kidney disease, one from coronary artery disease. One brother is alive with history of diabetes. Sister(s) Additional Family Medical History / Comment(s): Patient does not have any sisters. Son(s) Additional Family Medical History / Comment(s): Patient has 2 sons and one has from complications following bariatric surgery with PE, one son is alive with history of high cholesterol. Patient is one daughter with diabetes. Medications and Allergies Home Medications Medication Instructions Recorded Confirmed Type Multivitamins, Thera [Multivitamin 1 tab PO DAILY 08/28/15 12/06/19 History (formulary)] Ondansetron [Zofran] 4 mg PO TID-W/MEALS 04/29/19 12/06/19 History Mirtazapine 7.5 mg PO W/SUPPER 06/24/19 12/06/19 History Omeprazole [PriLOSEC] 40 mg PO DAILY #30 cap 06/28/19 12/06/19 Rx Clotrimazole Judd [Mycelex 10 mg MUCOUS MEM 5XD PRN 12/06/19 12/06/19 History Judd] Ipratropium-Albuterol Nebulize 3 ml INHALATION QID PRN 12/06/19 12/06/19 History [Duoneb 0.5 mg-3 mg/3 ml Soln] Levothyroxine Sodium [Euthyrox] 100 mcg PO DAILY 12/06/19 12/06/19 History Prochlorperazine [Compazine] 10 mg PO Q6H PRN 12/06/19 12/06/19 History Sennosides/Docusate Sodium [Senna 1 tab PO HS 12/06/19 12/06/19 History Plus 8.6-50 mg Tablet] Sulfamethox-Tmp 800-160Mg [Bactrim 1 tab PO MOWEFR 12/06/19 12/06/19 History DS 800-160 mg] Allergies Allergy/AdvReac Type Severity Reaction Status Date / Time No Known Allergies Allergy Verified 12/06/19 17:00 Physical Exam Vitals: Vital Signs Temp Pulse Pulse Resp BP BP Pulse Ox 12/07/19 16:50 103 H 12/07/19 16:41 103 H 12/07/19 16:00 94 28 H 74/51 94 L 12/07/19 12:00 97.4 F L 110 H 24 84/68 92 L 12/07/19 08:00 112 H 28 H 83/59 95 12/07/19 04:00 97.9 F 103 H 20 92/60 94 L 12/07/19 02:31 100 12/07/19 02:17 107 H 12/07/19 00:00 98.3 F 98 20 99/62 96 12/06/19 21:16 97 20 103/70 95 12/06/19 20:00 90 16 110/77 97 12/06/19 19:30 95 18 103/69 96 12/06/19 18:30 90 18 107/80 97 12/06/19 18:00 90 18 115/75 Intake and Output 12/07/19 12/07/19 12/07/19 06:59 14:59 22:59 Output Total 200 Balance -200 Output: Urine 200 Other: # Voids 1 0 0 Weight 57 kg 61.8 kg - Constitutional General appearance: mild distress - EENT Eyes: poor dentition ENT: hard of hearing, NA/AT - Neck Neck: normal ROM - Respiratory Respiratory: bilateral: diminished, rhonchi, wheezing - Cardiovascular Rhythm: irregularly irregular - Gastrointestinal General gastrointestinal: distended, soft - Neurologic YIFAN - Musculoskeletal Musculoskeletal: generalized weakness - Psychiatric Poor historian inappropriately conversation Results CBC & Chem 7: 12/07/19 10:19 12/07/19 10:19 Labs: Abnormal Lab Results - Last 24 Hours (Table) 12/06/19 12/06/19 12/07/19 Range/Units 18:56 21:53 00:47 RBC (4.30-5.90) m/uL Hgb (13.0-17.5) gm/dL Hct (39.0-53.0) % MCV (80.0-100.0) fL MCHC (31.0-37.0) g/dL Sodium (137-145) mmol/L BUN (9-20) mg/dL Glucose (74-99) mg/dL Plasma Lactic Acid Jamie 2.3 H* 2.1 H* 2.8 H* (0.7-2.0) mmol/L AST (17-59) U/L Lactate Dehydrogenase (313-618) U/L TSH (0.465-4.680) mIU/L 12/07/19 12/07/19 12/07/19 Range/Units 03:34 06:31 10:19 RBC (4.30-5.90) m/uL Hgb (13.0-17.5) gm/dL Hct (39.0-53.0) % MCV (80.0-100.0) fL MCHC (31.0-37.0) g/dL Sodium (137-145) mmol/L BUN (9-20) mg/dL Glucose (74-99) mg/dL Plasma Lactic Acid Jamie 3.4 H* 5.5 H* 5.9 H* (0.7-2.0) mmol/L AST (17-59) U/L Lactate Dehydrogenase (313-618) U/L TSH (0.465-4.680) mIU/L 12/07/19 12/07/19 12/07/19 Range/Units 10:19 10:19 14:37 RBC 3.49 L (4.30-5.90) m/uL Hgb 10.8 L (13.0-17.5) gm/dL Hct 35.1 L (39.0-53.0) % MCV 100.4 H D (80.0-100.0) fL MCHC 30.8 L (31.0-37.0) g/dL Sodium 136 L (137-145) mmol/L BUN 24 H (9-20) mg/dL Glucose 129 H (74-99) mg/dL Plasma Lactic Acid Jamei 6.7 H* (0.7-2.0) mmol/L AST 65 H (17-59) U/L Lactate Dehydrogenase 1425 H (313-618) U/L TSH 8.200 H (0.465-4.680) mIU/L CT scan - chest: report reviewed MRI - head: report reviewed Assessment and Plan (1) AMS (altered mental status) Current Visit: Yes Status: Acute Code(s): R41.82 - ALTERED MENTAL STATUS, UNSPECIFIED SNOMED Code(s): 890556212 (2) Metastatic melanoma Current Visit: No Status: Acute Code(s): C79.9 - SECONDARY MALIGNANT NEOPLASM OF UNSPECIFIED SITE SNOMED Code(s): 545890924 Plan: Assessment and Plan: Altered Mental Status: - Known metastatic melanoma on temodar - MRI brain to further assess Metastatic Melanoma:L - Status post treatment with popdivo and yervoy in September - Currently started on temodar Acute Hypoxia: - Innumerable progressed pulmonary nodules: Metastatic progression versus infectious - Pulm following Plan: - Hold Temodar - Anemia and immune therapy work-up - MRI Brain - CTA Physician Attest: I have completed the full history and physical and agree with above dictated as a scribe
[2019-12-07] MEDS ORDERED: LORazepam 2 MG/ML INJ IV PRN ×2 (18:24→18:25)
[2019-12-07] MEDS ORDERED: MORPHINE SULFATE 2 MG/ML SYRINGE IV PRN (18:25)
--- NOTE | 2019-12-07 18:34 | P.CNPUL ---
History of Present Illness Consult date: 12/07/19 Reason for consult: dyspnea History of present illness: This is a 74-year-old male patient was hospitalized a day because of worsening shortness of breath and altered mentation. The patient was further having episodes of hypotension and for that reason a pulmonary critical care consultation was obtained. I was able to review the medical records and I also met the patient and the and the daughter at the bedside. In summary, this is a case of metastatic melanoma with obvious disease progression. I compared the 2 CAT scans that were done in between 09/30/2019 and 12/07/2019. There is obvious and significant progression of his disease. This is despite him taking immunotherapy. The patient has innumerable bilateral pulmonary nodules and masses majority are on the right the majority of pleural-based with extensive replacement of the lung tissue with tumor. There is also mass effect on the right mainstem bronchus and there is also enlargement in the hilar and mediastinal lymph nodes which is very much difficult to delineate from the pulmonary masses. The patient has also a Pleurx catheter in the right side which is being used to drain the right-sided pleural effusion episodically at home. Note that there is no pleural fluid based on the CAT scan findings. I met the patient. We are short of breath. He was unable to lay down flat. He would lay down for a minute or 2 and he would sit up. He was restless. He was not much older than he was following commands. He looked extremely emaciated and thin and malnourished and monitor and his systolic blood pressure in the mid 80s. MRI of the brain showed 10 is atrophy and there was no evidence of any [employer] metastases. He has lost at least 70 pounds over this past 3-4 months. His lactic S level was at 6.7. His LDH was 1425. He was getting a bolus of 100 mL and he is currently on IV fluids. No chest pain. No nausea. No vomiting. No emesis. No aspiration. No swelling in lower extremities. Review of Systems Constitutional: Reports anorexia, Reports daytime sleepiness, Reports fatigue, Reports lethargy, Reports malaise, Reports poor appetite, Reports weakness, Reports weight loss Eyes: right decreased vision, denies as per HPI Ears: deny: decreased hearing, ear discharge, earache, tinnitus Ears, nose, mouth and throat: Reports as per HPI Breasts: absent: as per HPI, gynecomastia Cardiovascular: Reports as per HPI, Reports decreased exercise tolerance, Reports dyspnea on exertion, Reports shortness of breath Respiratory: Reports dyspnea Gastrointestinal: Reports as per HPI Genitourinary: Reports as per HPI Musculoskeletal: Reports as per HPI Musculoskeletal: absent: ankle pain, ankle stiffness, ankle swelling, as per HPI, elbow pain, elbow stiffness, elbow swelling, foot pain, foot stiffness, foot swelling, hand pain, hand stiffness, hand swelling, hip pain, hip stiffness, hip swelling, knee pain, knee stiffness, knee swelling, shoulder pain, shoulder stiffness, shoulder swelling, wrist pain, wrist stiffness, wrist swelling Integumentary: Reports as per HPI Neurological: Reports as per HPI, Reports balance difficulties, Reports weakness Psychiatric: Reports as per HPI Endocrine: Reports fatigue Hematologic/Lymphatic: Reports easy bleeding Allergic/Immunologic: Reports as per HPI Past Medical History Past Medical History: Cancer Additional Past Medical History / Comment(s): Metastatic melanoma ,Melanoma left eye, left eyes status post prosthesis at [facility], pleural effusion History of Any Multi-Drug Resistant Organisms: None Reported Past Surgical History: Joint Replacement, Orthopedic Surgery Additional Past Surgical History / Comment(s): TOTAL LEFT KNEE, LEFT ROTATOR CUFF, MARY JO CARPAL TUNNEl X2 EACH, prosthesis left eye 08/2018, abdominal hernia repair, multi thoracentesis Past Anesthesia/Blood Transfusion Reactions: No Reported Reaction Past Psychological History: No Psychological Hx Reported Smoking Status: Former smoker Past Alcohol Use History: Daily Additional Past Alcohol Use History / Comment(s): QUIT SMOKING 30 YEARS AGO. SMOKED LESS THAN 1 PPD FOR 30 YEARS OR MORE. Past Drug Use History: None Reported - Past Family History Mother Family Medical History: No Reported History Additional Family Medical History / Comment(s): Mother at age 73 with history of diabetes. Father Additional Family Medical History / Comment(s): Father at age 65 from a myocardial infarction. Brother(s) Additional Family Medical History / Comment(s): Patient has 4 brothers when his past from a myocardial infarction at age 57, one has from kidney disease, one from coronary artery disease. One brother is alive with history of diabetes. Sister(s) Additional Family Medical History / Comment(s): Patient does not have any sisters. Son(s) Additional Family Medical History / Comment(s): Patient has 2 sons and one has from complications following bariatric surgery with PE, one son is alive with history of high cholesterol. Patient is one daughter with diabetes. Medications and Allergies Home Medications Medication Instructions Recorded Confirmed Type Multivitamins, Thera [Multivitamin 1 tab PO DAILY 08/28/15 12/06/19 History (formulary)] Ondansetron [Zofran] 4 mg PO TID-W/MEALS 04/29/19 12/06/19 History Mirtazapine 7.5 mg PO W/SUPPER 06/24/19 12/06/19 History Omeprazole [PriLOSEC] 40 mg PO DAILY #30 cap 06/28/19 12/06/19 Rx Clotrimazole Judd [Mycelex 10 mg MUCOUS MEM 5XD PRN 12/06/19 12/06/19 History Judd] Ipratropium-Albuterol Nebulize 3 ml INHALATION QID PRN 12/06/19 12/06/19 History [Duoneb 0.5 mg-3 mg/3 ml Soln] Levothyroxine Sodium [Euthyrox] 100 mcg PO DAILY 12/06/19 12/06/19 History Prochlorperazine [Compazine] 10 mg PO Q6H PRN 12/06/19 12/06/19 History Sennosides/Docusate Sodium [Senna 1 tab PO HS 12/06/19 12/06/19 History Plus 8.6-50 mg Tablet] Sulfamethox-Tmp 800-160Mg [Bactrim 1 tab PO MOWEFR 12/06/19 12/06/19 History DS 800-160 mg] Allergies Allergy/AdvReac Type Severity Reaction Status Date / Time No Known Allergies Allergy Verified 12/06/19 17:00 Physical Exam Vitals: Vital Signs Temp Pulse Pulse Resp BP BP Pulse Ox 12/07/19 16:50 103 H 12/07/19 16:41 103 H 12/07/19 16:00 94 28 H 74/51 94 L 12/07/19 12:00 97.4 F L 110 H 24 84/68 92 L 12/07/19 08:00 112 H 28 H 83/59 95 12/07/19 04:00 97.9 F 103 H 20 92/60 94 L 12/07/19 02:31 100 12/07/19 02:17 107 H 12/07/19 00:00 98.3 F 98 20 99/62 96 12/06/19 21:16 97 20 103/70 95 12/06/19 20:00 90 16 110/77 97 12/06/19 19:30 95 18 103/69 96 12/06/19 18:30 90 18 107/80 97 Intake and Output 12/07/19 12/07/19 12/07/19 06:59 14:59 22:59 Output Total 200 Balance -200 Output: Urine 200 Other: # Voids 1 0 0 Weight 57 kg 61.8 kg Gen. appearance emaciated cachectic malnourished unable to breathe comfortably even in a sitting up position. Head the patient has extensive temporal wasting.Head exam was generally normal. There was no scleral icterus or corneal arcus. Mucous membranes were moist. Neck was supple and without jugular venous distension, thyromegaly, or carotid bruits. Carotids were easily palpable bilaterally. There was no adenopathy. Lungs sounds are markedly diminished bilaterally especially in the right lung base. The patient is a Pleurx catheter in the right hemithorax. Breath sounds are markedly diminished in no wheezes. Cardiac exam revealed the PMI to be normally situated and sized. The rhythm was regular and no extrasystoles were noted during several minutes of auscultation. The first and second heart sounds were normal and physiologic splitting of the second heart sound was noted. There were no murmurs, rubs, clicks, or gallops. Abdominal exam revealed normal bowel sounds. The abdomen was soft, non-tender, and without masses, organomegaly, or appreciable enlargement of the abdominal aorta. Extremities are mottled and the patient has diffuse muscle atrophy. No cyanosis or clubbing. Neurologically, there is no focal neurological deficit. Nevertheless the p atient is profoundly weak and he has generalized body weakness in all 4 extremities. No focal neurological deficit. Examination of the skin revealed no evidence of significant rashes, suspicious appearing nevi or other concerning lesions. As mentioned the skin is mottled and lower extremities bilaterally. Results - Laboratory Findings CBC and BMP: 12/07/19 10:19 12/07/19 10:19 ABG WBC 6.3 k/uL (3.8-10.6) 12/07/19 10:19 RBC 3.49 m/uL (4.30-5.90) L 12/07/19 10:19 Hgb 10.8 gm/dL (13.0-17.5) L 12/07/19 10:19 Hct 35.1 % (39.0-53.0) L 12/07/19 10:19 MCV 100.4 fL (80.0-100.0) H D 12/07/19 10:19 MCH 30.9 pg (25.0-35.0) 12/07/19 10:19 MCHC 30.8 g/dL (31.0-37.0) L 12/07/19 10:19 RDW 15.5 % (11.5-15.5) 12/07/19 10:19 Plt Count 211 k/uL (150-450) 12/07/19 10:19 Neutrophils % 71 % 12/07/19 10:19 Lymphocytes % 18 % 12/07/19 10:19 Monocytes % 7 % 12/07/19 10:19 Eosinophils % 1 % 12/07/19 10: Basophils % 0 % 12/07/19 10:19 Neutrophils # 4.5 k/uL (1.3-7.7) 12/07/19 10:19 Lymphocytes # 1.2 k/uL (1.0-4.8) 12/07/19 10:19 Monocytes # 0.4 k/uL (0-1.0) 12/07/19 10:19 Eosinophils # 0.1 k/uL (0-0.7) 12/07/19 10:19 Basophils # 0.0 k/uL (0-0.2) 12/07/19 10:19 Hypochromasia Moderate 12/07/19 10:19 Macrocytosis Slight 12/07/19 10:19 PT 10.5 sec (9.0-12.0) 12/06/19 15:03 INR 1.0 (<1.2) 12/06/19 15:03 APTT 22.5 sec (22.0-30.0) 12/06/19 15:03 Sodium 136 mmol/L (137-145) L 12/07/19 10:19 Potassium 4.9 mmol/L (3.5-5.1) 12/07/19 10:19 Chloride 103 mmol/L (98-107) 12/07/19 10:19 Carbon Dioxide 23 mmol/L (22-30) 12/07/19 10:19 Anion Gap 10 mmol/L 12/07/19 10:19 BUN 24 mg/dL (9-20) H 12/07/19 10:19 Creatinine 0.81 mg/dL (0.66-1.25) 12/07/19 10:19 Est GFR (CKD-EPI)AfAm >90 (>60 ml/min/1.73 sqM) 12/07/19 10:19 Est GFR (CKD-EPI)NonAf 86 (>60 ml/min/1.73 sqM) 12/07/19 10:19 Glucose 129 mg/dL (74-99) H 12/07/19 10:19 Lactic Ac Sepsis Rflx Y 12/07/19 15:08 Plasma Lactic Acid Jamie 6.7 mmol/L (0.7-2.0) H* 12/07/19 14:37 Calcium 9.6 mg/dL (8.4-10.2) 12/07/19 10:19 Total Bilirubin 0.5 mg/dL (0.2-1.3) 12/07/19 10:19 AST 65 U/L (17-59) H 12/07/19 10:19 ALT 19 U/L (4-49) 12/07/19 10:19 Alkaline Phosphatase 96 U/L (38-126) 12/07/19 10:19 Lactate Dehydrogenase 1425 U/L (313-618) H 12/07/19 10:19 Troponin I 0.049 ng/mL (0.000-0.034) H* 12/06/19 15:03 Total Protein 7.8 g/dL (6.3-8.2) 12/07/19 10:19 Albumin 3.5 g/dL (3.5-5.0) 12/07/19 10:19 TSH 8.200 mIU/L (0.465-4.680) H 12/07/19 10:19 Free T4 1.26 ng/dL (0.78-2.19) 12/07/19 10:19 Cortisol 33 ug/dL 12/07/19 10:19 Urine Color Yellow 12/06/19 16:45 Urine Appearance Clear (Clear) 12/06/19 16:45 Urine pH 5.5 (5.0-8.0) 12/06/19 16:45 Ur Specific Chandler 1.026 (1.001-1.035) 12/06/19 16:45 Urine Protein Trace (Negative) H 12/06/19 16:45 Urine Glucose (UA) Negative (Negative) 12/06/19 16:45 Urine Ketones Trace (Negative) H 12/06/19 16:45 Urine Blood Negative (Negative) 12/06/19 16:45 Urine Nitrite Negative (Negative) 12/06/19 16:45 Urine Bilirubin Negative (Negative) 12/06/19 16:45 Urine Urobilinogen <2.0 mg/dL (<2.0) 12/06/19 16:45 Ur Leukocyte Esterase Negative (Negative) 12/06/19 16:45 PT/INR, D-dimer PT 10.5 sec (9.0-12.0) 12/06/19 15:03 INR 1.0 (<1.2) 12/06/19 15:03 Abnormal lab findings: Abnormal Labs 12/06/19 12/06/19 12/06/19 15:03 15:03 15:03 RBC 3.68 L Hgb 11.4 L Hct 35.0 L MCV MCHC Lymphocytes # 0.7 L Sodium BUN 27 H Glucose Plasma Lactic Acid Jamie 3.5 H* AST 62 H Lactate Dehydrogenase Troponin I Total Protein 8.3 H TSH Urine Protein Urine Ketones 12/06/19 12/06/19 12/06/19 15:03 16:45 18:56 RBC Hgb Hct MCV MCHC Lymphocytes # Sodium BUN Glucose Plasma Lactic Acid Jamie 2.3 H* AST Lactate Dehydrogenase Troponin I 0.049 H* Total Protein TSH Urine Protein Trace H Urine Ketones Trace H 12/06/19 12/07/19 12/07/19 21:53 00:47 03:34 RBC Hgb Hct MCV MCHC Lymphocytes # Sodium BUN Glucose Plasma Lactic Acid Jamie 2.1 H* 2.8 H* 3.4 H* AST Lactate Dehydrogenase Troponin I Total Protein TSH Urine Protein Urine Ketones 12/07/19 12/07/19 12/07/19 06:31 10:19 10:19 RBC 3.49 L Hgb 10.8 L Hct 35.1 L MCV 100.4 H D MCHC 30.8 L Lymphocytes # Sodium BUN Glucose Plasma Lactic Acid Jamie 5.5 H* 5.9 H* AST Lactate Dehydrogenase Troponin I Total Protein TSH Urine Protein Urine Ketones 12/07/19 12/07/19 10:19 14:37 RBC Hgb Hct MCV MCHC Lymphocytes # Sodium 136 L BUN 24 H Glucose 129 H Plasma Lactic Acid Jamie 6.7 H* AST 65 H Lactate Dehydrogenase 1425 H Troponin I Total Protein TSH 8.200 H Urine Protein Urine Ketones - Diagnostic Findings CT scan - chest: image reviewed Assessment and Plan Plan: 1 metastatic melanoma with extensive pulmonary involvement, failed immunotherapy with Opdivo and there is significant interval progression compared to September 2019. Comparing the CAT scan of the chest from September and November 2019, the patient is significant interval progression and there is innumerable pulmonary masses and enlargement of the mediastinal and hilar lymph nodes causing mass effect on the mainstem bronchi more so on the right. 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 Follow-up CAT scan showed no evidence of any residual effusion in the right hemithorax. Plan Reviewed the images of the computed tomography scan of the chest. Examined the patient. I had a Discussion with his primary care physician. Based on my review, this patient's condition is terminal and advanced age. I recommended hospice care. The patient is obviously in distress and he would benefit from a combination of opiates and benzodiazepine to give him some symptomatic relief. He was agreeable. The family was agreeable. DNR/DNI CODE STATUS has been established. The patient will receive a combination of Ativan and morphine on a medical floor in addition to some hydration. Hospice consult within next 24 hours. Unfortunately nothing much can be done to this patient's care. He has a terminal metastatic melanoma with obvious interval progression despite immunotherapy.
[2019-12-07] MEDS ORDERED: SENNOSIDES-DOCUSATE SODIUM 1 EACH TAB PO SCH (21:00)
[2019-12-07] MEDS ORDERED: HEPARIN SODIUM,PORCINE 5,000 UNIT/ML 1 ML VIAL SQ SCH (21:00)
[2019-12-08] MEDS ORDERED: LEVOTHYROXINE 100 MCG TAB PO SCH (06:30)
[2019-12-08] MEDS ORDERED: PANTOPRAZOLE 40 MG TABLET PO SCH (09:00)
== END 2019-12-07 22:33 | disposition expired | DRG 180 ==
LOC: EC 14:26 → 3SCARD 18:08
PROVIDERS: ADMIT Internal Medicine; ATTEND Internal Medicine
DX: C78.01 Secondary malignant neoplasm of right lung (principal); E43 Unspecified severe protein-calorie malnutrition; G93.41 Metabolic encephalopathy; J96.01 Acute respiratory failure with hypoxia; E87.2 Acidosis; R64 Cachexia; Z68.1 Body mass index [BMI] 19.9 or less, adult; C78.02 Secondary malignant neoplasm of left lung; R57.1 Hypovolemic shock; I48.0 Paroxysmal atrial fibrillation; E86.0 Dehydration; R40.2362 Coma scale, best motor response, obeys commands, at arrival to emergency department; R40.2142 Coma scale, eyes open, spontaneous, at arrival to emergency department; R40.2252 Coma scale, best verbal response, oriented, at arrival to emergency department; Z66 Do not resuscitate; R79.89 Other specified abnormal findings of blood chemistry; M19.90 Unspecified osteoarthritis, unspecified site; Z96.652 Presence of left artificial knee joint; K21.9 Gastro-esophageal reflux disease without esophagitis; I95.9 Hypotension, unspecified; R53.81 Other malaise; N62 Hypertrophy of breast; E86.1 Hypovolemia; Z79.899 Other long term (current) drug therapy; Z97.0 Presence of artificial eye; Z85.840 Personal history of malignant neoplasm of eye; Z79.890 Hormone replacement therapy; Z98.890 Other specified postprocedural states; Z83.3 Family history of diabetes mellitus; Z82.49 Family history of ischemic heart disease and other diseases of the circulatory system; Z84.1 Family history of disorders of kidney and ureter; Z87.891 Personal history of nicotine dependence; Z90.01 Acquired absence of eye; Z83.49 Family history of other endocrine, nutritional and metabolic diseases
CPT/HCPCS: 36415; 70450; 70553; 71046; 71275; 80053; 81003; 82533; 83605; 83615; 84439; 84443; 84484; 85025; 85610; 85730; 93005; 94640; 96361; 96374; 99285